=== PATIENT | female | born 1960 | race Caucasian/White ===

== ENCOUNTER → 2016-03-27 | Outpatient (REF) | payer OTHER ==
[~2016-03-27] MED LIST: ACID75TA12 PO; AMOX875T2 PO; DOCQ100C PO; GAS-80CH PO; OXYC1TAB23 PO; VITA1CHW8 PO
[2016-03-27 11:53] LABS: ALBUMIN 3.9 GM/DL (3.2-5.2); ALBUMIN/GLOBULIN RATIO 1.05 (1.00-1.93); ALKALINE PHOSPHATASE 92 U/L (45-117); ALT/SGPT 27 U/L (12-78); ANION GAP 7 MEQ/L (8-16); AST/SGOT 15 U/L (15-37); BILIRUBIN,TOTAL 0.4 MG/DL (0.2-1.0); BLOOD UREA NITROGEN 20 MG/DL (7-18); CARBON DIOXIDE LEVEL 30 MEQ/L (21-32); CHLORIDE LEVEL 105 MEQ/L (98-107); CHOLESTEROL LEVEL 192 MG/DL (<200); CREATININE FOR GFR 0.86 MG/DL (0.55-1.02); GLOMERULAR FILTRATION RATE > 60.0 (>51); GLUCOSE, FASTING 132 MG/DL (70-105); POTASSIUM SERUM 4.4 MEQ/L (3.5-5.1); SODIUM LEVEL 142 MEQ/L (136-145); TOTAL PROTEIN 7.6 GM/DL (6.4-8.2); TRIGLYCERIDES LEVEL 273 MG/DL (<150)
== END ==
LOC: M SFHCCLAY 08:18
PROVIDERS: ATTEND Family Medicine
DX: E11.65 Type 2 diabetes mellitus with hyperglycemia (principal)

== ENCOUNTER → 2016-04-02 | Outpatient (CLI) | payer OTHER ==
--- NOTE | 2016-04-02 09:31 | REP ---
Right knee: Five views. History: Right knee pain. Findings: There is medial compartment joint space narrowing, sclerosis and osteophyte formation consistent with osteoarthritis. There is minimal lateral compartment spurring. Patellofemoral spurring is seen mild in degree. There is no evidence of joint effusion. No erosive change is seen. Impression: Three compartment osteoarthritis, most pronounced in the medial tibiofemoral compartment.
== END ==
LOC: M CLY 08:40
PROVIDERS: ATTEND Family Medicine
DX: M17.11 Unilateral primary osteoarthritis, right knee (principal)

== ENCOUNTER 2018-11-22 10:42 | Inpatient (IN) | payer OTHER ==
[2018-11-22] VITALS (12 sets, daily range): BP systolic 110–136; BP diastolic 63–91
[~2018-11-22] VITALS: Ht 157.5 cm; Wt 86.9 kg
[~2018-11-22 10:42] MED LIST changes: -ACID75TA12 PO; +ACID75TA6 PO; -DOCQ100C PO; +DOCQ100C5 PO; +glipiZIDE (GLUCOTROL) 5 MG TAB PO SCH
[2018-11-22] MEDS ORDERED: CYCL10TA PO (10:52)
[2018-11-22] MEDS ORDERED: GLIP2.5T6 PO (10:52)
[2018-11-22] MEDS ORDERED: METF500T13 PO (10:52)
[2018-11-22] MEDS ORDERED: LISI10TA4 PO (10:52)
[2018-11-22] MEDS ORDERED: IPRATROPIUM 0.5MG/ALBUTEROL 2.5MG INH SOL UD 3ML (DUONEB)(J7620) NEB PRN (11:00)
[2018-11-22 11:34] LABS: BASO % 0.3 % (0.0-1.0); EOS # 0.3 10^3/uL (0.0-0.5); EOS % 2.6 % (0.0-3.0); HEMATOCRIT 42.4 % (36.0-47.0); HEMOGLOBIN 13.7 g/dl (12.0-15.5); LYMPH # 3.3 10^3/uL (1.5-5.0); LYMPH % 30.6 % (24.0-44.0); MEAN CORPUSCULAR HEMOGLOBIN 28.1 pg (27.0-33.0); MEAN CORPUSCULAR HGB CONC 32.3 g/dl (32.0-36.5); MEAN CORPUSCULAR VOLUME 87.1 fl (80.0-96.0); MONO # 0.9 10^3/uL (0.0-0.8); MONO % 7.9 % (0.0-5.0); NEUTROPHILS # 6.3 10^3/uL (1.5-8.5); NEUTROPHILS % 58.2 % (36.0-66.0); PLATELET COUNT, AUTOMATED 296 10^3/uL (150-450); RED BLOOD COUNT 4.87 10^6/uL (4.00-5.40); WHITE BLOOD COUNT 10.9 10^3/uL (4.0-10.0)
--- NOTE | 2018-11-22 11:35 | REP ---
CHEST, SINGLE VIEW: Single view of the chest is performed. There is a large left pleural effusion with adjacent left lung atelectasis/infiltrate. Right lung is clear. Heart size is not well evaluated. There is calcification of the thoracic aorta. Electronically Signed by Freddie Day MD 11/23/2018 10:09 A
[2018-11-22 12:03] LABS: ALBUMIN 3.3 GM/DL (3.2-5.2); ALT/SGPT 30 U/L (12-78); BILIRUBIN,DIRECT 0.2 MG/DL (0.0-0.2); BILIRUBIN,TOTAL 0.3 MG/DL (0.2-1.0); BLOOD UREA NITROGEN 14 MG/DL (7-18); CALCIUM LEVEL 9.6 MG/DL (8.5-10.1); CARBON DIOXIDE LEVEL 27 MEQ/L (21-32); CHLORIDE LEVEL 102 MEQ/L (98-107); CK-MB VALUE MASS < 1.0 NG/ML (<3.6); CPK CREATINE PHOSPHOKINASE 36 U/L (26-192); CREATININE FOR GFR 0.79 MG/DL (0.55-1.30); GLOMERULAR FILTRATION RATE > 60.0 (>51); GLUCOSE, FASTING 216 MG/DL (70-100); MB/CK RELATIVE INDEX 2.78 (< OR =4); NT-PRO BNP 109 PG/ML (<125); POTASSIUM SERUM 3.9 MEQ/L (3.5-5.1); SODIUM LEVEL 138 MEQ/L (136-145); TOTAL PROTEIN 7.7 GM/DL (6.4-8.2); TROPONIN I < 0.02 NG/ML (< 0.10)
[2018-11-22 12:11] LABS: D-DIMER QUANT > 4000.0 ng/ml (<500)
[2018-11-22] MEDS ORDERED: ISOVUE-370 76% 100ML VIAL (Q9967) As Ordered ONE (12:26)
--- NOTE | 2018-11-22 12:34 | ECGEPIP ---
[facility] - ED Test Date: 2018-11-22 Pat Name: AMINTA PEARSON Department: Room: - Gender: Female Social Media Specialist: yvette : 1960 Requested By: Kinsey Larry Order Number: [id number] Reading MD: Elijah Wallace Measurements Intervals [place] Rate: 104 P: 55 AK: 143 QRS: 46 QRSD: 80 T: 40 QT: 314 QTc: 415 Interpretive Statements SINUS TACHYCARDIA NSTTW ABNORMALITIES NO PRIORS FOR COMPARISON Electronically Signed on 11-22-2018 12:34:32 EDT by Elijah Wallace
[2018-11-22] MEDS ORDERED: GLIP5TAB8 PO (12:53)
[2018-11-22] MEDS ORDERED: METF-791 PO (12:53)
--- NOTE | 2018-11-22 13:41 | REP ---
CT ANGIOGRAM CHEST: TECHNIQUE: Axial contrast enhanced images from the thoracic inlet to the upper abdomen using 100 mL Isovue 370 intravenous contrast material with multiplanar reformations. No comparison studies. There is no CT evidence of pulmonary embolism. There is no thoracic aortic aneurysm or dissection. I see no evidence of significant mediastinal, hilar, or chest wall lymphadenopathy. Heart is normal in size. There is mild left side pericardial thickening. There is a large left pleural effusion which appears to have an enhancing rind. Empyema is not excluded. There is an adjacent left lung atelectasis/infiltrate. The visualized liver demonstrates ill-defined nodules. Four are seen in the right lobe and two in the left lobe. The largest appears to be at the right dome measuring 2.6 cm in diameter. There appear to be gallstones in a collapsed gallbladder without definite gallbladder wall edema or inflammation. The spleen is unremarkable. The adrenals demonstrate no discrete nodule. Visualized pancreas and kidneys are unremarkable. There are a few subcentimeter enhancing peritoneal nodules anteriorly in the visualized upper abdomen. Enlarged portal lymph nodes are seen. The largest is in the posterior portal region measuring 2.2 x 1.3 cm. Another anterior to the pancreatic head measures 1.7 cm. There are degenerative changes of the spine without definite bone lesion. IMPRESSION: Large left pleural effusion with enhancing rind, this could represent an empyema. There is adjacent atelectasis/infiltrate in the left lung. Several liver nodules I suspect represent metastatic lesions. There is portal adenopathy. There are a few subcentimeter peritoneal nodules in the upper abdomen anteriorly, anterior to the left lobe of the liver. These are also likely metastatic. Electronically Signed by Freddie Day MD 11/23/2018 10:18 A
[2018-11-22] MEDS ORDERED: CYCLOBENZAPRINE 10 MG TAB PO PRN (14:45)
[2018-11-22] MEDS ORDERED: LEVALBUTEROL 1.25 MG/0.5 ML CONCENTRATE NEB NEB PRN (15:00)
[2018-11-22] MEDS ORDERED: BISACODYL 10 MG SUPP PR PRN (15:00)
[2018-11-22] MEDS ORDERED: ONDANSETRON 4MG/2ML VIAL (J2405) IV PRN (15:00)
[2018-11-22] MEDS ORDERED: KCL 20MEQ IN D5/NS 1000ML 1,000 ML IV SCH (15:00)
[2018-11-22] MEDS ORDERED: PERCOCET 5MG/325MG TAB PO PRN (15:00)
[2018-11-22] MEDS ORDERED: ACETAMINOPHEN TAB 650MG DOSE (2X325MG) PO PRN (15:00)
[2018-11-22] MEDS ORDERED: GLUCOSE 4 GM CHEW TABLET PO PRN (15:15)
[2018-11-22] MEDS ORDERED: DEXTROSE 50% 50 ML SYRINGE IV PRN (15:15)
[2018-11-22] MEDS ORDERED: GLUCAGON FOR INJ 1 MG VIAL (J1610) SC PRN (15:15)
[2018-11-22] MEDS ORDERED: FLUMAZENIL 0.5 MG/5 ML VIAL As Ordered ONE (15:19)
[2018-11-22] MEDS ORDERED: MIDAZOLAM INJ 2 MG/2 ML VIAL (J2250) As Ordered ONE ×2 (15:19→15:20)
[2018-11-22] MEDS ORDERED: LIDOCAINE 1% MDV 20ML VIAL As Ordered ONE (15:20)
--- NOTE | 2018-11-22 15:56 | HPEPDOC ---
General Date of Admission Nov 22, 2018 at 14:34 Date of Service: Nov 22, 2018 Chief Complaint The patient is a 58-year-old female admitted with a reason for visit of Pleural Effusion. Source: Patient, Family Exam Limitations: Garbled speech Severity: Moderate, Severe History of Present Illness Pt is a 58 yo female with PMH of GERD, HTN, DM, and small bowel obstruction presented to [facility] ER due to 1 month of gradual worsening of dyspnea, orthopnea, and diffuse abdominal pain. She described the abdominal pain as diffuse dull and sharp abdominal pain that radiated to her neck and back, aggravating factor includes movement and milk products, and alleviating factor including aspirin. Pt reported that she has been taking 500mg Aspirin three times a day for the past 4 weeks; stating 10/10 abdominal pain improves after taking aspirin, and last took aspirin last night. She also has productive cough and left arm weakness. Pt had about 10lb weight loss which she attributed to decreased appetite and her glipizide use; reported she was started on glipizide about 4 weeks ago, but she stopped it 11/04/18. Pt also has nausea but denies vomiting. She uses marijuna occasionally but denies any past IV drug use. Denies any fever, chills, chest pain, chest tightness, palpitation, diarrhea, constipation, or blood in stool. Home Medications Scheduled Glipizide (Glipizide) 5 Mg Tablet, 5 MG PO BID, (Reported) Lisinopril (Lisinopril) 10 Mg Tablet, 10 MG PO DAILY, (Reported) Metformin HCl (Metformin HCl ER) 500 Mg Tab.er.24h, 250 MG PO BID, (Reported) Scheduled PRN Cyclobenzaprine HCl (Cyclobenzaprine HCl) 10 Mg Tablet, 10 MG PO TID PRN for MUSCLE SPASMS, (Reported) Allergies Coded Allergies: No Known Allergies (Unverified , 03/21/15) Past Medical History Medical History SBO HTN DM Gallstone Appendicitis GERD Surgical History C-[id number] 1984 Appendectomy 03/14/15 Family History Mother-HTN and uterine CA Brother-ETOH use disorder, unspecified cardiac disease Social History * Smoker: current smoker, cigarettes (30 years; used to be 1pk/day but for the past 6 months 6-8cig/day), other Alcohol: other (Denies current alcohol use; ETOH use years ago) Drugs: marijuana A-FIB/CHADSVASC A-FIB History Current/History of A-Fib/PAF?: No Review of Systems Constitutional: Reports: Weight Loss, Other (decreased appetite); Denies: Chills, Fever Pulmonary: Reports: Dyspnea, Cough Cardiovascular: Reports: Orthopnea; Denies: Chest Pain, Palpitations, Edema Gastrointestinal: Reports: Nausea, Abdominal Pain; Denies: Vomiting, Diarrhea, Constipation, Hematochezia Musculoskeletal: Reports: Arm Pain (left arm weakness) Neurological: Reports: Other Symptoms (denies tingling); Denies: Weakness, Numbness Physical Examination General Exam: Positive: Alert, No Acute Distress Eye Exam: Negative: Sclera icteric ENT Exam: Positive: Atraumatic, Other ENT (poor dentation) Chest Exam: Positive: Normal air movement, Diminished (Left lung worse in lower lobe region; decreased fremitus and dull percussion in LLL region) Heart Exam: Positive: Rate Normal, Regular Rhythm, Normal S1, Normal S2; Negative: Murmurs Abdomen Exam: Positive: Normal bowel sounds, Soft, Tenderness (diffuse) Extremity Exam: Positive: Normal pulses; Negative: Edema, Tenderness, Swelling Skin Exam: Positive: Nl turgor and temperature Neuro Exam: Positive: Normal Speech Psych Exam: Positive: Mood NL, Memory Intact, Oriented x 3 Vital Signs Vital Signs Date Time Temp Pulse Resp B/P (MAP) Pulse Ox O2 Delivery O2 Flow Rate FiO2 11/22/18 14:30 96 129/83 (98) 97 11/22/18 10:55 97.7 20 Room Air Laboratory Data Labs 24H Laboratory Tests 2 11/22/18 11:12: Immature Granulocyte % (Auto) 0.4, White Blood Count 10.9H, Red Blood Count 4.87, Hemoglobin 13.7, Hematocrit 42.4, Mean Corpuscular Volume 87.1, Mean Corpuscular Hemoglobin 28.1, Mean Corpuscular Hemoglobin Concent 32.3, Red Cell Distribution Width 14.6H, Platelet Count 296, Neutrophils (%) (Auto) 58.2, Lymphocytes (%) (Auto) 30.6, Monocytes (%) (Auto) 7.9H, Eosinophils (%) (Auto) 2.6, Basophils (%) (Auto) 0.3, Neutrophils # (Auto) 6.3, Lymphocytes # (Auto) 3.3, Monocytes # (Auto) 0.9H, Eosinophils # (Auto) 0.3, Basophils # (Auto) 0.0, Nucleated Red Blood Cells % (auto) 0.0, D-Dimer, Quantitative > 4000.0H, Anion Gap 9, Glomerular Filtration Rate > 60.0, Calcium Level 9.6, Aspartate Amino Tra nsf (AST/SGOT) 17, Alanine Aminotransferase (ALT/SGPT) 30, Alkaline Phosphatase 141H, Total Bilirubin 0.3, Direct Bilirubin 0.2, Total Creatine Kinase 36, Creatine Kinase MB < 1.0, Creatine Kinase MB Relative Index 2.78, Troponin I < 0.02, KT-Wwz-C-Type Natriuretic Peptide 109, Total Protein 7.7, Albumin 3.3, Albumin/Globulin Ratio 0.75L, Thyroid Stimulating Hormone (TSH) 1.700 CBC/BMP Laboratory Tests 11/22/18 11:12 Red Blood Count 4.87, Mean Corpuscular Volume 87.1, Mean Corpuscular Hemoglobin 28.1, Mean Corpuscular Hemoglobin Concent 32.3, Red Cell Distribution Width 14.6 H, Neutrophils (%) (Auto) 58.2, Lymphocytes (%) (Auto) 30.6, Monocytes (%) (Auto) 7.9 H, Eosinophils (%) (Auto) 2.6, Basophils (%) (Auto) 0.3, Neutrophils # (Auto) 6.3, Lymphocytes # (Auto) 3.3, Monocytes # (Auto) 0.9 H, Eosinophils # (Auto) 0.3, Basophils # (Auto) 0.0 Assessment/Plan 1. Dyspnea due to left pleural effusion likely 2/2 malignancy -Large left pleural effusion with enhancing ring noted on CT chest with adjacent atelectasis/infiltrate in the left lung. -Several liver nodules peritoneal nodules in the upper abdomen anteriorly suspected to be metastatic lesions as well as portal adenopathy -Dr. Torres consulted by ER, and we appreciate Dr. Torres's assist and input in patient care. Plan for chest tube placement with peritoneal fluid analysis. -Pt sat well on RA. Incentive spirometry; xopenex 2. Abdominal pain with weight loss likely 2/2 GI malignancy -Several liver nodules peritoneal nodules in the upper abdomen anteriorly suspected to be metastatic lesions as well as portal adenopathy -Pending chest tube fluid analysis. Consider Abd CT -Pain meds with Zofran PRN -Pt denies any past IV use and denies hx of hepatitis; no jaundice noted. AFP, CEA, and CA 19-9 ordered. F/u CMP 3. Diabetes mellitus, non-insulin dependent -pt was on glipizide and metformin outpt but reported stopping glipizide on her own due to the weight loss -Hold home DM meds. Pt will be on insulin SS and glucose checks 4. HTN -Cont home med lisinopril. Vital signs as scheduled 5. GERD -On protonix 40mg daily DVT prophylaxis: SCD, TEDS, and heparin SQ Code status: Patient is full code I performed a history and physical examination of the patient and discussed their management with the above documenter. I reviewed the note and agree with the documented findings and plan of care. Plan / VTE VTE Prophylaxis Ordered?: Yes AMITA PAINTER DO Nov 22, 2018 15:56 BEST CALLEJAS MD Nov 23, 2018 12:07
[2018-11-22] MEDS ORDERED: KETOROLAC 30 MG/ML VIAL (J1885) IV SCH (16:00)
[2018-11-22 16:34] LABS: LDH LACTATE DEHYDROGENASE 186 U/L (84-246)
[2018-11-22 16:36] LABS: PROTHROMBIN TIME 13.9 SECONDS (11.8-14.0)
[2018-11-22] MEDS ORDERED: KETOROLAC 30 MG/ML VIAL (J1885) IV ONE (17:00)
[2018-11-22 17:35] LABS: ABG PARTIAL PRESSURE CO2 36.4 mmHg (35.0-45.0); ABG PARTIAL PRESSURE O2 91.4 mmHg (75.0-100.0); ABG STANDARD HCO3 23.6 MEQ/L (22.0-26.0); ABG TOTAL CO2 24.1 MEQ/L (22.0-29.0); ABG pH (ARTERIAL) 7.419 UNITS (7.350-7.450)
--- NOTE | 2018-11-22 17:54 | REP ---
CHEST, SINGLE VIEW: Single view of the chest is performed and compared to prior exam of the same day. There has been placement of a left chest tube. It overlies the left lower hemithorax. There is a small pneumothorax at that level. There is underlying pleural and parenchymal density in the left base. Right lung remains clear. Electronically Signed by Freddie Day MD 11/24/2018 04:31 P
--- NOTE | 2018-11-22 18:10 | RO ---
DATE OF PROCEDURE: 11/22/2018 PREPROCEDURE DIAGNOSIS: Left side pleural effusion. POSTPROCEDURE DIAGNOSIS: Left side pleural effusion. SURGEON: Dr. Torres. PROCEDURE: Insertion of left lateral chest tube. FINDINGS: The chest tube eluded approximately 750 mL of hemorrhagic fluid. Fluid was sent for hematology, cytology, bacteriologies and chemistries. PROCEDURE: Under satisfactory moderate sedation with 1 mg of Versed patient was prepped and draped in the usual sterile fashion. Incision was made over the proximal 7th rib and the chest tube was placed in the approximate 6th intercostal space after making an incision and creating a tunnel. Chest tube was secured to the chest wall with #2 Tevdek suture. It was connected to a pleur-evac. Patient tolerated the procedure well and a chest x-ray is pending. It should be noted that the incision site along with the subcutaneous tissue and muscle and pleural were infiltrated with 1% lidocaine prior to insertion of the tube.
[2018-11-22] MEDS: HumaLOG INSULIN (NovoLOG) PER UNIT SC SCH ×2 (18:18→21:56)
--- NOTE | 2018-11-22 18:55 | CR ---
DATE OF CONSULTATION: 11/22/2018 The patient is seen at the request of the emergency room, Dr. Jones and the hospitalist service for a left pleural effusion and shortness of breath. HISTORY OF PRESENT ILLNESS: The patient is a 58-year-old white female whose story starts about a month ago. She attributes everything to seeing her doctor where a diagnosis of diabetes and hypertension was made and she was placed on medications. Shortly thereafter she started to experience chest discomfort and chest pain in both her side and her anterior precordium. She cannot really describe the pain well, but it is somewhere between an ache and a sharp pain. The pain is more intense when she takes a deep breath in, particularly in the anterior precordium. She has had no fever, chills or sweats, but she has lost about 8 pounds of weight in the last few months and her clothes do not fit as well as they did. She has a cough with yellow to green sputum production with sometimes brown flecks. There is no overt red hemoptysis. The cough has been going on again for about a month. She has become progressively shortness of breath such that even walking around her house she gets shortness of breath. Going from her bed to her bathroom additionally makes her shortness of breath. She has no dysphagia. She dates all of her symptomatology back to when she stared her medications for diabetes and hypertension. She is utterly convinced that those are the cause of her symptomatology. PAST MEDICAL HISTORY: The above diabetes and hypertension. Also gallbladder disease. PAST SURGICAL HISTORY: C sections and appendectomy. She has never had a hysterectomy or an oophorectomy. MEDICATIONS AT HOME: - cyclobenzaprine 10 mg by mouth three times a day as needed muscle spasm - glipizide 5 mg twice a day - lisinopril 10 mg every day - metformin 250 mg by mouth twice a day Additionally she takes 1500 mg of aspirin a day for the last month for pain control. SOCIAL HISTORY: On average she smokes about 1/2 pack per day of [place]'s. Earlier years she might have smoke up to a pack a day for about 30 past years. She drinks White Russians, sometimes 6 a day but nothing in the last 6 months. She smoked marijuana last night for pain control, but there is no other illicit drug use. TRAVEL HISTORY: She has been to [place] but not to the [facility] and there has been no foreign travel. 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 No exposure to tuberculosis. FAMILY HISTORY: Mother of uterine carcinoma REVIEW OF SYSTEMS: Constitutional: See HPI with the above weight loss, without fever, chills or sweats. Eyes: Without diplopia, wears glasses, amaurosis fugax or prior jaundice. Nose: Without epistaxis. Mouth: Has her own teeth. Pulmonary: See HPI. Cardiac: Has palpitations when she takes her garbage out. She considers that walking a long distance. Without prior myocardial infarctions. Without intermittent claudication or peripheral edema. Gastrointestinal (GI): Has over the past month she has had bouts of nausea, but no vomiting. No diarrhea. Occasional constipation. No melena, no hematochezia or hematemasis. Does have abdominal pain on the left side particularly after eating. She attributes her weight loss to pain that she experiences after eating over the last month. Genitourinary (): Without dysuria, hematuria, or prior renal stones. Does note that her urine has been much more yellow over the past month. Neurologic: Without paresthesias, paralysis or prior seizures. Hematologic: Without prolonged bleeding times. Psychiatric: Without pathologic depression, psychoses or anxieties, but has had depression in the past, untreated. PHYSICAL EXAMINATION: Well developed, well nourished, obese, white female in no acute distress. Vital Signs: Temperature 97.7, heart rate 98 in a sinus rhythm, respiratory rate 20 without the use of accessory muscles, who is 96% saturated on room air and whose blood pressure is 133/77. Head: Normocephalic. Eyes: Pupils equal and reactive to light. Extraocular movements intact. Sclerae anicteric. Nose: Without deformity. Mouth: She has her bottom teeth, edentulous on the top, with mucous membranes that are pink and moist. Lips and commissures are without lesions. There is no thrush. Neck: Supple. There is no jugular venous distention. No subcutaneous emphysema. Trachea is midline. There is no thyromegaly or lymphadenopathy. She has 2+ carotid upstrokes, without carotid bruits. Lungs: Show markedly decreased breath sounds in the left lower hemithorax with E to A egophony. Percussion note is dull in the left lower hemithorax. Right hemithorax shows normal vesicular sounds, without wheezes, rhonchi or rales. Percussion note is full to the diaphragm on the right. Cardiac Exam: Without murmurs, clicks, gallops, or rubs. I cannot feel her PMI. S1 and S2 are normal. Abdomen: Tender to deep palpation in the right and left upper quadrants along with the epigastrium. There is guarding or rebound tenderness. Bowel sounds are positive. There is no hepatomegaly that I can feel through her obesity and there is no costovertebral angle (CVA) tenderness. Extremities: Show no pretibial edema. No calf tenderness. No differential swelling of the upper extremities. Skin: Warm, dry and perfused. Without cyanosis or mottling, including that of the nail beds and knees. Neurologic: Shows II-XII intact along with gross motor and gross sensation intact. Gait is not tested. Psychiatric shows her to be awake, alert, and oriented times three with appropriate mood and affect and conversational. Pulses show 1+ dorsalis pedis, 1+ posterior tibial pulses and 2+ carotid pulses without bruits. INVESTIGATIONS: Her white count is 10.9 with hemoglobin and hematocrit of 13.7 and 42.4 with a platelet count of 296. Her differential shows 58% neutrophils, 30% lymphocytes, 70% monocytes. There are no immature forms, no toxic granulations. Her electrolytes are normal with a BUN and creatinine of 14 and 0.79, a glucose of 260 and a calcium of 9.6. Corresponding albumin is 3.3. Total bilirubin is 0.3 with normal LFTs with a marginally high LDH of 186. Troponins less than 0.02. Her TSH is 1.7 within normal limits for this institution. PT/INR are 13.9 and 1.1 respectively. D-dimer is greater than 4000. Her chest x-ray done in the emergency room portably shows a left-sided opacity. She looks to have a curvilinear meniscus with underlying compression. CT angio of her chest confirms a pleural effusion on the left side. She has a crescent of lung compression on the lower lobe. I can see air bronchograms so I do not think there is an endobronchial obstructive lesion within the compressed areas. There is no appreciable mediastinal lymphadenopathy paratracheally. She may have a few smaller nodes in the AP window and along the border of the aortic arch. She has multiple lucencies in the liver which are a lot more dense than cystic fluid ought to be. She has abdominal lymphadenopathy along the aorta along with what looks to be a peritoneal mass within the omentum which only measures about 8 mm. It looks as though she has a calcification or stone within the common duct. Kidneys are well opacified. There is no pulmonary embolism. Right heart looks to be normal size. IMPRESSION: 1. A left-sided pleural effusion. 2. Multiple lucent areas of the liver consistent with metastatic disease. 3. Multiple peritoneal masses consistent with metastatic disease. 4. Family history of ovarian cancer. 5. Tobacco abuse. 6. Prior alcohol abuse. 7. Diabetes. 8. Hypertension. PLAN AND DISCUSSION: My suspicion is that this pleural effusion is going to be malignant and I would conjecture hemorrhagic. I suspect the primary is going to be below the diaphragm either uterine or ovarian as the lung usually does not go to the peritoneum. Certainly lung cancer is in the differential and a definite possibility however. I do not think this represents an empyema or underlying pneumonia giving rise to an empyema. I am concerned about her weight loss. We will send the fluid off for all the requisite studies. I will place a chest tube in her this afternoon. ROBERT
[2018-11-22 18:59] LABS: PH BODY FLUID 7.482 UNITS (NOT ESTABLISHED); SOURCE, BODY FLUID pH PLEURAL
[2018-11-22 19:07] LABS: APPEARANCE, BODY FLUID TURBID (CLEAR); PLEURAL FL COLOR RED (COLORLESS); SOURCE, BODY FLUID PLEURAL
[2018-11-22 19:25] LABS: AMYLASE, BODY FLUID 44 U/L (NOT ESTABLISHED); CHOLESTEROL, BODY FLUID 88 MG/DL (NOT ESTABLISHED); LDH, BODY FLUID 718 U/L (NOT ESTABLISHED); SOURCE, BODY FLUID ALBUMIN PLEURAL; SOURCE, BODY FLUID AMYLASE PLEURAL; SOURCE, BODY FLUID CHOL PLEURAL; SOURCE, BODY FLUID GLUCOSE PLEURAL; SOURCE, BODY FLUID LDH PLEURAL; SOURCE, BODY FLUID TOT PROTEIN PLEURAL; SOURCE, BODY FLUID TRIG PLEURAL; TOTAL PROTEIN, BODY FLUID 5.4 G/DL (NOT ESTABLISHED); TRIGLYCERIDE, BODY FLUID 64 MG/DL (NOT ESTABLISHED)
[2018-11-22] MEDS: LEVALBUTEROL 1.25 MG/0.5 ML CONCENTRATE NEB NEB SCH (20:12)
[2018-11-22] MEDS ORDERED: metFORMIN XR 500MG TAB *GLUCOPHAGE XR PO SCH (21:00)
[2018-11-22] MEDS: NORCO, ANEXSIA 5/325MG TABLET (HYDROcodone/ACETAMINOPHEN) PO PRN (21:40)
[2018-11-22] MEDS: DOCUSATE SODIUM 100 MG CAP PO SCH (21:40)
[2018-11-22] MEDS: HEPARIN SOD (PORCINE) 5000 UNITS/ML VIAL SC SCH (21:41)
[2018-11-22] MEDS: KETOROLAC 30 MG/ML VIAL (J1885) IV SCH (22:02)
[2018-11-23] MEDS ORDERED: GASTROGRAFIN SOLUTION 30ML PO SCH (02:00)
[2018-11-23] MEDS: NORCO, ANEXSIA 5/325MG TABLET (HYDROcodone/ACETAMINOPHEN) PO PRN ×2 (02:16→14:19)
[2018-11-23] MEDS: LEVALBUTEROL 1.25 MG/0.5 ML CONCENTRATE NEB NEB SCH ×4 (02:33→20:52)
[2018-11-23 04:00] VITALS: BP 112/65
[2018-11-23] MEDS: KETOROLAC 30 MG/ML VIAL (J1885) IV SCH ×3 (04:24→18:01)
[2018-11-23 05:20] LABS: BASO % 0.4 % (0.0-1.0); EOS # 0.4 10^3/uL (0.0-0.5); EOS % 3.4 % (0.0-3.0); HEMATOCRIT 36.7 % (36.0-47.0); HEMOGLOBIN 11.8 g/dl (12.0-15.5); LYMPH # 3.9 10^3/uL (1.5-5.0); LYMPH % 35.6 % (24.0-44.0); MEAN CORPUSCULAR HEMOGLOBIN 27.3 pg (27.0-33.0); MEAN CORPUSCULAR HGB CONC 32.2 g/dl (32.0-36.5); MONO # 0.9 10^3/uL (0.0-0.8); MONO % 8.6 % (0.0-5.0); NEUTROPHILS # 5.6 10^3/uL (1.5-8.5); NEUTROPHILS % 51.5 % (36.0-66.0); PLATELET COUNT, AUTOMATED 253 10^3/uL (150-450); RED BLOOD COUNT 4.32 10^6/uL (4.00-5.40); WHITE BLOOD COUNT 10.9 10^3/uL (4.0-10.0)
[2018-11-23 05:37] LABS: INR 1.18; PROTHROMBIN TIME 14.7 SECONDS (11.8-14.0)
[2018-11-23 05:38] LABS: PARTIAL THROMBOPLASTIN TIME 30.3 SECONDS (25.0-38.4)
[2018-11-23 05:58] LABS: ALBUMIN 2.7 GM/DL (3.2-5.2); ALT/SGPT 28 U/L (12-78); BILIRUBIN,TOTAL 0.5 MG/DL (0.2-1.0); BLOOD UREA NITROGEN 14 MG/DL (7-18); CALCIUM LEVEL 8.8 MG/DL (8.5-10.1); CARBON DIOXIDE LEVEL 23 MEQ/L (21-32); CHLORIDE LEVEL 103 MEQ/L (98-107); CREATININE FOR GFR 0.85 MG/DL (0.55-1.30); GLOMERULAR FILTRATION RATE > 60.0 (>51); GLUCOSE, FASTING 172 MG/DL (70-100); POTASSIUM SERUM 3.6 MEQ/L (3.5-5.1); SODIUM LEVEL 136 MEQ/L (136-145); TOTAL PROTEIN 6.8 GM/DL (6.4-8.2)
[2018-11-23 06:13] LABS: ABG BASE EXCESS -4.3 (-2.0-2.0); ABG HCO3 19.8 MEQ/L (22.0-26.0); ABG O2 SATURATION 95.1 % (95.0-99.0); ABG PARTIAL PRESSURE CO2 33.3 mmHg (35.0-45.0); ABG PARTIAL PRESSURE O2 78.2 mmHg (75.0-100.0); ABG STANDARD HCO3 20.8 MEQ/L (22.0-26.0); ABG TOTAL CO2 20.8 MEQ/L (22.0-29.0); ABG pH (ARTERIAL) 7.391 UNITS (7.350-7.450)
[2018-11-23] MEDS: GASTROGRAFIN SOLUTION 30ML PO SCH (07:28)
[2018-11-23 08:00] VITALS: BP 107/61
[2018-11-23] MEDS: HumaLOG INSULIN (NovoLOG) PER UNIT SC SCH ×4 (08:00→21:21)
[2018-11-23] MEDS ORDERED: MIDAZOLAM INJ 2 MG/2 ML VIAL (J2250) IV ONE ×3 (08:30→08:45)
[2018-11-23] MEDS ORDERED: LIDOCAINE 1% MDV 20ML VIAL SC ONE ×2 (08:30)
[2018-11-23] MEDS ORDERED: FLUBLOK(EGG FREE)(QUAD)INFLUENZA VACC 0.5ML SYRINGE (90682)18YRS&OLDER IM ONE (09:00)
--- NOTE | 2018-11-23 09:23 | IPN ---
DATE: 11/22/2018 Ms. Harrington has had an uneventful night. Her pain is being well controlled at the chest tube insertion site. She is breathing better today. On physical examination her abdominal tenderness is completely resolved. Her vital signs show a maximum temperature (t-max) of 97.7 with a heart rate that ranges between 98 and 102 in a sinus rhythm with a respiratory rate of 20 to 28 without the use of accessory muscles, who is 99% saturated on 4 liters nasal cannula. Blood pressure is ranging between 115/67 to 135/91. Her intake and output over the past 24 hours has been recorded as 638 in and 865 out for a negativity of 285 mL. She put out 540 mL from the chest tube after her initial drainge. She has put out 85 mL in the last 8 hours. There is no air leak. PHYSICAL EXAMINATION: LUNGS: Her lungs show equal breath sounds now on either side with some rales and wheezing in the left lower hemithorax. Percussion is full to the diaphragm. Right lung shows normal vesicular sounds. CARDIAC EXAM: Without murmurs, clicks, gallops or rubs. I cannot feel his point of maximum impulse (PMI). S1, S2 are normal. ABDOMEN: Soft, nontender. Bowel sounds are positive. There is no hepatomegaly. No costovertebral angle tenderness. As noted above there is a change from yesterday's physical examination. EXTREMITIES: Show no pretibial edema. No calf tenderness. No differential swelling of the upper extremities. SKIN: Warm, dry and perfused without cyanosis or mottling, including that of the nail beds and knees. NECK: Supple. There is no jugular venous distention. No subcutaneous emphysema. Trachea is midline. MOUTH: Shows her mucous membranes to be pink and moist. Lips and commissures without lesions. There is no thrush. EYES: Show his pupils to be equal and reactive. Extraocular motion intact. Sclerae anicteric. NEUROLOGIC: Shows II through XII intact with gross motor and gross sensation intact. Gait is not tested. PSYCHIATRIC: Shows her to be awake and alert, oriented times three with appropriate mood and affect and conversational. Her white count today is 10.9 with a hemoglobin and hematocrit of 11.8 and 36.7, down from 13.7 and 42.4 yesterday. This is probably secondary to hemodilution. Platelet count is 253 and stable. Differential shows 51% neutrophils, 35% lymphocytes, and 8% monocytes. There are no immature forms. No toxic granulations. Electrolytes are normal with a BUN and creatinine of 14 and 0.85. Glucose is 172 and calcium 8.8. Alkaline phosphatase is still marginally elevated. Albumin is 2.7. Her PT/INR today are 14.7 and 1.18 respectively. PTT is 30 seconds. Her pleural fluid has been determined with a pH of 7.48 with a glucose of 92 and an LDH of 718 with a serum LDH of 141. White count is 3639 of which 90% are lymphocytes were mononuclear and 9% are PMNs. Her chest x-ray today shows her lung fully expanded to the chest wall. This is in contrast to yesterday's chest x-ray just after the chest tube where the lung had still not expanded to the chest wall. She remains on -20 cm suction. Bacteriology is not reported back. No gram stain has been done yet. Pathology is still pending. IMPRESSION: 1. Left sided lymphocystic pleural effusion. 2. Multiple lucencies in the liver consistent with metastatic disease. 3. Multiple peritoneal masses consistent with metastatic disease. 4. Family history of uterine cancer. 5. Tobacco abuse. 6. Prior tobacco abuse. 7. Diabetes. 8. Hypertension. PLAN AND DISCUSSION: She has put out a considerable amount out the chest tube, I will leave it in today. We will await pathology. It does look suspicious that this is going to indeed be a malignant effusion. A CT of her abdomen is going to be undertaken today and again conjecturing that the primary tumor is going to originate under the diaphragm.
[2018-11-23] MEDS: LISINOPRIL 10 MG TAB PO SCH (10:00)
[2018-11-23] MEDS: MOM 30ML SUSPENSION UDC PO SCH (10:00)
[2018-11-23 10:08] LABS: AMYLASE 62 U/L (25-115)
[2018-11-23] MEDS: PANTOPRAZOLE 40MG TAB (PROTONIX) PO SCH (10:08)
[2018-11-23] MEDS: HEPARIN SOD (PORCINE) 5000 UNITS/ML VIAL SC SCH ×2 (10:08→21:21)
[2018-11-23] MEDS: DOCUSATE SODIUM 100 MG CAP PO SCH ×2 (10:08→21:20)
--- NOTE | 2018-11-23 10:08 | IPNPDOC ---
Subjective Date Seen The patient was seen on 11/23/18. Subjective Chief Complaint/HPI Pt is a 58 yo female with PMH of GERD, HTN, DM, and small bowel obstruction presented to [facility] ER due to 1 month of gradual worsening of dyspnea, orthopnea, and diffuse abdominal pain. She described the abdominal pain as diffuse dull and sharp abdominal pain that radiated to her neck and back, aggravating factor includes movement and milk products, and alleviating factor including aspirin. Pt reported that she has been taking 500mg Aspirin three times a day for the past 4 weeks; stating 10/10 abdominal pain improves after taking aspirin, and last took aspirin last night. She also has productive cough and left arm weakness. Pt had about 10lb weight loss which she attributed to decreased appetite and her glipizide use; reported she was started on glipizide about 4 weeks ago, but she stopped it 11/04/18. Pt also has nausea but denies vomiting. She uses marijuna occasionally but denies any past IV drug use. Denies any fever, chills, chest pain, chest tightness, palpitation, diarrhea, constipation, or blood in stool. Events since last encounter Pt was examined at bedside. She reported improving dyspnea and coughing after the chest tube insertion. She said she still has some orthopnea but denies any fever, chills, nausea, vomiting; abdominal pain resolved General: Denies: Chills Constitutional: Denies: Chills, Fever Pulmonary: Reports: Dyspnea, Cough Cardiovascular: Reports: Orthopnea; Denies: Chest Pain, Palpitations Gastrointestinal: Denies: Nausea, Vomiting, Abdominal Pain Objective Physical Examination General Exam: Positive: Alert, No Acute Distress Eye Exam: Negative: Sclera icteric ENT Exam: Positive: Atraumatic, Other ENT (poor dentation) Chest Exam: Positive: Normal air movement, Diminished (Mild in left ), Other (B/l dullness to percussion in lower lung region. Chest tube vac noted with red pleural fluid noted in tube); Negative: Rales, Rhonchi, Wheezing Heart Exam: Positive: Rate Normal, Regular Rhythm, Normal S1, Normal S2; Negative: Murmurs Abdomen Exam: Positive: Normal bowel sounds, Soft, Tenderness (in LUQ region) Extremity Exam: Positive: Normal pulses; Negative: Edema, Tenderness, Swelling Skin Exam: Positive: Nl turgor and temperature Neuro Exam: Positive: Normal Speech Psych Exam: Positive: Mood NL, Memory Intact, Oriented x 3 Assessment /Plan Assessment 1. Dyspnea due to left pleural effusion likely 2/2 malignancy, improving s/p chest tube insertion -Large left pleural effusion with enhancing ring noted on CT chest with adjacent atelectasis/infiltrate in the left lung. -Several liver nodules peritoneal nodules in the upper abdomen anteriorly suspected to be metastatic lesions as well as portal adenopathy -Dr. Torres consulted by ER, and we appreciate Dr. Torres's assist and input in patient care. S/p chest tube placement -Pt sat well on RA. Incentive spirometry; xopenex 2. Left sided exudative pleural effusion s/p chest tube insertion likely 2/2 malignancy vs less likely parapneumonic - LDH ratio 3.86; red turbid appearance - cytology pending 2. 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 -AFP wnl, CEA elevated, and CA 19-9 pending. Occult Guiac blood ordered 3. Diabetes mellitus, non-insulin dependent -pt was on glipizide and metformin outpt but reported stopping glipizide on her own due to the weight loss -Hold home DM meds. Pt will be on insulin SS and glucose checks 4. HTN -Cont home med lisinopril. Vital signs as scheduled 5. GERD -On protonix 40mg daily DVT prophylaxis: SCD, TEDS, and heparin SQ Code status: Patient is full code I saw and evaluated the patient. I agree with the findings and plan of care as documented in the above note Plan/VTE VTE Prophylaxis Ordered?: Yes VS, I&O, 24H, Fishbone Vital Signs/I&O Vital Signs Date Time Temp Pulse Resp B/P (MAP) Pulse Ox O2 Delivery O2 Flow Rate FiO2 11/23/18 08:00 97.0 88 18 107/61 (76) 97 11/22/18 17:47 4.0 11/22/18 10:55 Room Air I&O- Last 24 Hours up to 6 AM 11/23/18 06:00 Intake Total 830 ml Output Total 1050 ml Balance -220 ml Laboratory Data 24H LABS Laboratory Tests 2 11/22/18 11:12: Immature Granulocyte % (Auto) 0.4, White Blood Count 10.9H, Red Blood Count 4.87, Hemoglobin 13.7, Hematocrit 42.4, Mean Corpuscular Volume 87.1, Mean Corpuscular Hemoglobin 28.1, Mean Corpuscular Hemoglobin Concent 32.3, Red Cell Distribution Width 14.6H, Platelet Count 296, Neutrophils (%) (Auto) 58.2, Lymphocytes (%) (Auto) 30.6, Monocytes (%) (Auto) 7.9H, Eosinophils (%) (Auto) 2.6, Basophils (%) (Auto) 0.3, Neutrophils # (Auto) 6.3, Lymphocytes # (Auto) 3.3, Monocytes # (Auto) 0.9H, Eosinophils # (Auto) 0.3, Basophils # (Auto) 0.0, Nucleated Red Blood Cells % (auto) 0.0, Prothrombin Time 13.9, Prothromb Time International Ratio 1.10, D-Dimer, Quantitative > 4000.0H, Anion Gap 9, Glomerular Filtration Rate > 60.0, Calcium Level 9.6, Aspartate Amino Transf (AST/SGOT) 17, Alanine Aminotransferase (ALT/SGPT) 30, Lactate Dehydrogenase 186, Alkaline Phosphatase 141H, Total Bilirubin 0.3, Direct Bilirubin 0.2, Total Creatine Kinase 36, Creatine Kinase MB < 1.0, Creatine Kinase MB Relative Index 2.78, Troponin I < 0.02, DG-Hjx-H-Type Natriuretic Peptide 109, Total Protein 7.7, Albumin 3.3, Albumin/Globulin Ratio 0.75L, Tumor Marker Alpha Fetoprotein 3.1, Carcinoembryonic Antigen 590.3H, Thyroid Stimulating Hormone (TSH) 1.700 11/22/18 17:20: Blood Gas Bicarbonate Standard 23.6, Arterial Blood pH 7.419, Arterial Blood P artial Pressure CO2 36.4, Arterial Blood Partial Pressure O2 91.4, Arterial Blood Total CO2 24.1, Arterial Blood HCO3 23.0, Arterial Blood Base Excess -1.0, Arterial Blood Oxygen Saturation 97.0 11/22/18 17:33: Bedside Glucose (Misc Panel) 196H 11/22/18 17:58: Body Fluid pH 7.482, Body Fluid pH Source PLEURAL, Body Fluid WBC (Auto) 3639H, Body Fluid RBC (Auto) 188, Body Fluid Mononuclear Cells % Auto 90.6H, Fluid Polymorphonuclear Cell % Auto 9.4H, Body Fluid Glucose Source PLEURAL, Body Fluid Glucose 92, Body Fluid Protein Source PLEURAL, Body Fluid Total Protein 5.4, Body Fluid Albumin Source PLEURAL, Body Fluid Albumin 2.5, Body Fluid LDH Source PLEURAL, Body Fluid Lactate Dehydrogenase 718, Body Fluid Amylase Source PLEURAL, Body Fluid Amylase 44, Body Fluid Cholesterol 88, Body Fluid Cholesterol Source PLEURAL, Body Fluid Triglyceride Source PLEURAL, Body Fluid Triglycerides 64, Pleural Fluid Source PLEURAL, Pleural Fluid Color RED, Pleural Fluid Appearance TURBID 11/22/18 21:44: Bedside Glucose (Misc Panel) 290H 11/23/18 05:04: Immature Granulocyte % (Auto) 0.5, White Blood Count 10.9H, Red Blood Count 4.32, Hemoglobin 11.8L, Hematocrit 36.7, Mean Corpuscular Volume 85.0, Mean Corpuscular Hemoglobin 27.3, Mean Corpuscular Hemoglobin Concent 32.2, Red Cell Distribution Width 14.6H, Platelet Count 253, Neutrophils (%) (Auto) 51.5, Lymphocytes (%) (Auto) 35.6, Monocytes (%) (Auto) 8.6H, Eosinophils (%) (Auto) 3.4H, Basophils (%) (Auto) 0.4, Neutrophils # (Auto) 5.6, Lymphocytes # (Auto) 3.9, Monocytes # (Auto) 0.9H, Eosinophils # (Auto) 0.4, Basophils # (Auto) 0.0, Nucleated Red Blood Cells % (auto) 0.0, Prothrombin Time 14.7H, Prothromb Time International Ratio 1.18, Activated Partial Thromboplast Time 30.3, Anion Gap 10, Glomerular Filtration Rate > 60.0, Blood Urea Nitrogen 14, Creatinine 0.85, Sodium Level 136, Potassium Level 3.6, Chloride Level 103, Carbon Dioxide Level 23, Calcium Level 8.8, Aspartate Amino Transf (AST/SGOT) 21, Alanine Aminotransferase (ALT/SGPT) 28, Alkaline Phosphatase 123H, Total Bilirubin 0.5#, Total Protein 6.8, Albumin 2.7L, Albumin/Globulin Ratio 0.66L 11/23/18 06:05: Blood Gas Bicarbonate Standard 20.8L, Arterial Blood pH 7.391, Arterial Blood Partial Pressure CO2 33.3L, Arterial Blood Partial Pressure O2 78.2, Arterial B lood Total CO2 20.8L, Arterial Blood HCO3 19.8L, Arterial Blood Base Excess - 4.3L, Arterial Blood Oxygen Saturation 95.1 CBC/BMP Laboratory Tests 11/22/18 11:12 Red Blood Count 4.87, Mean Corpuscular Volume 87.1, Mean Corpuscular Hemoglobin 28.1, Mean Corpuscular Hemoglobin Concent 32.3, Red Cell Distribution Width 14.6 H, Neutrophils (%) (Auto) 58.2, Lymphocytes (%) (Auto) 30.6, Monocytes (%) (Auto) 7.9 H, Eosinophils (%) (Auto) 2.6, Basophils (%) (Auto) 0.3, Neutrophils # (Auto) 6.3, Lymphocytes # (Auto) 3.3, Monocytes # (Auto) 0.9 H, Eosinophils # (Auto) 0.3, Basophils # (Auto) 0.0 11/23/18 05:04 Red Blood Count 4.32, Mean Corpuscular Volume 85.0, Mean Corpuscular Hemoglobin 27.3, Mean Corpuscular Hemoglobin Concent 32.2, Red Cell Distribution Width 14.6 H, Neutrophils (%) (Auto) 51.5, Lymphocytes (%) (Auto) 35.6, Monocytes (%) (Auto) 8.6 H, Eosinophils (%) (Auto) 3.4 H, Basophils (%) (Auto) 0.4, Neutrophils # (Auto) 5.6, Lymphocytes # (Auto) 3.9, Monocytes # (Auto) 0.9 H, Eosinophils # (Auto) 0.4, Basophils # (Auto) 0.0, Calcium Level 8.8, Aspartate Amino Transf (AST/SGOT) 21, Alanine Aminotransferase (ALT/SGPT) 28, Alkaline Phosphatase 123 H, Total Bilirubin 0.5 #, Total Protein 6.8, Albumin 2.7 L Microbiology Microbiology 11/22/18 Acid Fast Stain, Received Pending 11/22/18 Mycobacterial Culture, Received Pending 11/22/18 Fungal Smear, Received Pending 11/22/18 Fungal Culture, Received Pending 11/22/18 Gram Stain, Received Pending 11/22/18 Body Fluid Culture, Received Pending 11/22/18 Anaerobic Culture, Received Pending AMITA PAINTER DO Nov 23, 2018 10:08 BEST CALLEJAS MD Nov 24, 2018 11:30
[2018-11-23] MEDS ORDERED: ISOVUE-370 76% 100ML VIAL (Q9967) As Ordered ONE (11:11)
[2018-11-23 12:00] VITALS: BP 122/62
--- NOTE | 2018-11-23 14:48 | REP ---
CT of the abdomen pelvis without and with IV contrast and with bowel contrast: Comparison is the chest CT of 11/22/2018. There has been interval placement of a left thoracotomy tube and the left pleural fluid collection has significantly decreased in size. There are multiple low density irregular hepatic nodules throughout both right and left lobes, compatible with hepatic metastases. Some of these were identified on the comparison chest CT. Non these lesions were present on a prior abdomen/pelvis CT dated 03/21/2015. There are small calculi in the collapsed gallbladder. This is unchanged from both prior studies. I suspect there is a 3.0 cm mass in the pancreatic uncinate process, not present on 03/21/2015. There is no evidence of pancreatitis or pancreatic duct dilatation. There are numerous mesenteric nodules anteriorly , likely mesenteric nodes. There are mesenteric nodes at the leonardo hepatis. The pancreas, adrenals, kidneys and abdominal aorta are unremarkable. There is no retroperitoneal adenopathy or mass. There is no bowel distension or obstruction. Pelvis: There is no ascites. The bladder is unremarkable. The uterus is atrophic. The adnexa are unremarkable. There is no ascites. There is sigmoid diverticulosis without diverticulitis. Impression: 3 cm mass in the pancreatic head/uncinate process. Numerous hypodense nodules throughout both right and left lobes of the liver compatible with metastases. Multiple mesenteric nodules, metastases versus lymph nodes. Cholelithiasis, gallbladder collapsed. No ascites. Diverticulosis without diverticulitis. No lytic, blastic or destructive skeletal changes. Electronically Signed by Freddie Kelly MD 11/23/2018 02:39 P
[2018-11-23 16:00] VITALS: BP 137/60
--- NOTE | 2018-11-23 16:44 | REP ---
CHEST, TWO VIEWS: Two views of the chest are performed. Left chest tube is in place. A small amount of left pleural effusion or thickening is seen. There is patchy parenchymal opacity inferiorly on the left. Small focal pneumothorax is seen on the left posteriorly. Right lung remains clear. Cardiomediastinal silhouette is unchanged. Electronically Signed by Freddie Day MD 11/24/2018 04:59 P
[2018-11-23] MEDS ORDERED: ONDANSETRON 4 MG TAB (S0181) PO PRN (18:30)
[2018-11-23 20:00] VITALS: BP 134/66
[2018-11-23 23:59] VITALS: BP 118/62
[2018-11-24] VITALS (8 sets, daily range): BP systolic 109–154; BP diastolic 60–78
[2018-11-24] MEDS: KETOROLAC 30 MG/ML VIAL (J1885) IV SCH ×5 (00:02→23:19)
[2018-11-24] MEDS: NORCO, ANEXSIA 5/325MG TABLET (HYDROcodone/ACETAMINOPHEN) PO PRN (00:02)
[2018-11-24] MEDS: LEVALBUTEROL 1.25 MG/0.5 ML CONCENTRATE NEB NEB SCH ×4 (01:56→19:42)
[2018-11-24 06:07] LABS: BASO % 0.3 % (0.0-1.0); EOS # 0.4 10^3/uL (0.0-0.5); HEMATOCRIT 36.9 % (36.0-47.0); HEMOGLOBIN 11.7 g/dl (12.0-15.5); LYMPH # 3.1 10^3/uL (1.5-5.0); LYMPH % 30.3 % (24.0-44.0); MEAN CORPUSCULAR HEMOGLOBIN 27.6 pg (27.0-33.0); MEAN CORPUSCULAR HGB CONC 31.7 g/dl (32.0-36.5); MONO # 0.9 10^3/uL (0.0-0.8); NEUTROPHILS # 5.7 10^3/uL (1.5-8.5); NEUTROPHILS % 55.9 % (36.0-66.0); PLATELET COUNT, AUTOMATED 250 10^3/uL (150-450); RED BLOOD COUNT 4.24 10^6/uL (4.00-5.40); WHITE BLOOD COUNT 10.1 10^3/uL (4.0-10.0)
[2018-11-24 06:37] LABS: ALBUMIN 2.5 GM/DL (3.2-5.2); ALT/SGPT 27 U/L (12-78); BILIRUBIN,TOTAL 0.4 MG/DL (0.2-1.0); BLOOD UREA NITROGEN 13 MG/DL (7-18); CALCIUM LEVEL 9.1 MG/DL (8.5-10.1); CARBON DIOXIDE LEVEL 28 MEQ/L (21-32); CHLORIDE LEVEL 103 MEQ/L (98-107); CREATININE FOR GFR 0.76 MG/DL (0.55-1.30); GLOMERULAR FILTRATION RATE > 60.0 (>51); GLUCOSE, FASTING 165 MG/DL (70-100); POTASSIUM SERUM 4.6 MEQ/L (3.5-5.1); SODIUM LEVEL 136 MEQ/L (136-145); TOTAL PROTEIN 6.7 GM/DL (6.4-8.2)
--- NOTE | 2018-11-24 07:25 | IPNPDOC ---
Subjective Date Seen The patient was seen on 11/24/18. Subjective Chief Complaint/HPI Pt was examined at bedside today. It was noted that she had some chest pain earlier. At the time of the examination, patient said that the chest pain had been resolved but no further info about chest pain can be obtained as she stated it was gone. Denies any nausea, vomiting, fever, chills, diarrhea, blood in stool, or abdominal pain when laying still. Pt reported abd tenderness when she was being palpitated General: Denies: Chills Constitutional: Denies: Chills, Fever Pulmonary: Reports: Dyspnea, Cough, Pleuritic Chest Pain Gastrointestinal: Reports: Other Symptoms (pos for abd tenderness); Denies: Nausea, Vomiting, Diarrhea, Constipation, Hematochezia Objective Physical Examination General Exam: Positive: Alert, No Acute Distress Eye Exam: Negative: Sclera icteric ENT Exam: Positive: Atraumatic, Other ENT (poor dentation) Chest Exam: Positive: Normal air movement, Diminished (Mild in left ), Other (B/l dullness to percussion in lower lung region. Chest tube vac noted with red pleural fluid noted in tube); Negative: Rales, Rhonchi, Wheezing Heart Exam: Positive: Rate Normal, Regular Rhythm, Normal S1, Normal S2; Negative: Murmurs Abdomen Exam: Positive: Normal bowel sounds, Soft, Tenderness (in LUQ and LLQ) Extremity Exam: Positive: Normal pulses; Negative: Edema, Tenderness, Swelling Skin Exam: Positive: Nl turgor and temperature Neuro Exam: Positive: Normal Speech Psych Exam: Positive: Mood NL, Memory Intact, Oriented x 3 Assessment /Plan Assessment 1. Dyspnea due to left malignant pleural effusion, improving s/p chest tube insertion -Large left pleural effusion with enhancing ring noted on CT chest with adjacent atelectasis/infiltrate in the left lung. -Several liver nodules peritoneal nodules in the upper abdomen anteriorly suspected to be metastatic lesions as well as portal adenopathy. -CT abd showed 3 cm mass in the pancreatic head/uncinate process; hypodense nodules throughout both right and left lobes of the liver. Multiple mesenteric nodules. -Dr. Torres consulted by ER, and we appreciate Dr. Torres's assist and input in patient care. S/p chest tube placement -Pt will be planned for CT-guided liver biopsy today -Pt sat well on RA. Incentive spirometry; xopenex 2. Left sided malignant exudative pleural effusion s/p chest tube insertion - LDH ratio 3.86; red turbid appearance. - Amylase ratio <1 however a 3cm pancreatic head mass noted - Cell block result consistent with metastatic non-small cell carcinoma. 3. Pleuritis 2/2 left sided malignant pleural effusion -pleuritic chest pain noted -EKG and trop unremarkable -pt stated pain resolved 4. Pancreatic head mass likely GI malignancy -Abdominal pain with weight loss -Several liver nodules peritoneal nodules in the upper abdomen anteriorly suspected to be metastatic lesions as well as portal adenopathy -Abd CT showed 3 cm mass in the pancreatic head/uncinate process. Numerous hypodense nodules throughout both right and left lobes of the liver as well as multiple mesenteric nodule noted. -Pain meds with Zofran PRN -Pt denies any past IV use and denies hx of hepatitis; no jaundice noted. -AFP wnl, CEA elevated, and CA 19-9 pending. Occult Guiac blood pending -HA1C ordered to evaluate pancreatic endocrine function; further onco workups recommend outpt workup 5. Diabetes mellitus, non-insulin dependent -pt was on glipizide and metformin outpt but reported stopping glipizide on her own due to the weight loss -Hold home DM meds. Pt will be on insulin SS and glucose checks -Last A1C in 2015 showed pre-DM; recheck A1C due to pancreatic mass to evaluate pancreas endocrine function 6. HTN -Cont home med lisinopril. Vital signs as scheduled 7. GERD -On protonix 40mg daily DVT prophylaxis: SCD, TEDS, and heparin SQ Code status: Patient is full code DISPO: likely malignant pleural effusion. Pending liver node biopsy. I saw and evaluated the patient. I agree with the findings and plan of care as documented in the above note Plan/VTE VTE Prophylaxis Ordered?: Yes VS, I&O, 24H, Fishbone Vital Signs/I&O Vital Signs Date Time Temp Pulse Resp B/P (MAP) Pulse Ox O2 Delivery O2 Flow Rate FiO2 11/24/18 07:21 96.9 86 20 143/77 (99) 100 11/22/18 17:47 4.0 11/22/18 10:55 Room Air I&O- Last 24 Hours up to 6 AM 11/24/18 06:00 Intake Total 1020 ml Output Total 1785 ml Balance -765 ml Laboratory Data 24H LABS Laboratory Tests 2 11/23/18 12:00: Bedside Glucose (Misc Panel) 190H 11/23/18 16:29: Bedside Glucose (Misc Panel) 255H 11/23/18 21:13: Bedside Glucose (Misc Panel) 264H 11/24/18 05:40: Immature Granulocyte % (Auto) 0.5, White Blood Count 10.1H, Red Blood Count 4.24, Hemoglobin 11.7L, Hematocrit 36.9, Mean Corpuscular Volume 87.0, Mean Corpuscular Hemoglobin 27.6, Mean Corpuscular Hemoglobin Concent 31.7L, Red Cell Distribution Width 14.9H, Platelet Count 250, Neutrophils (%) (Auto) 55.9, Lymphocytes (%) (Auto) 30.3, Monocytes (%) (Auto) 9.0H, Eosinophils (%) (Auto) 4.0H, Basophils (%) (Auto) 0.3, Neutrophils # (Auto) 5.7, Lymphocytes # (Auto) 3.1, Monocytes # (Auto) 0.9H, Eosinophils # (Auto) 0.4, Basophils # (Auto) 0.0, Nucleated Red Blood Cells % (auto) 0.0, Anion Gap 5L, Glomerular Filtration Rate > 60.0, Blood Urea Nitrogen 13, Creatinine 0.76, Sodium Level 136, Potassium Level 4.6#, Chloride Level 103, Carbon Dioxide Level 28, Calcium Level 9.1, Aspartate Amino Transf (AST/SGOT) 23, Alanine Aminotransferase (ALT/SGPT) 27, A lkaline Phosphatase 116, Total Bilirubin 0.4, Total Protein 6.7, Albumin 2.5L, Albumin/Globulin Ratio 0.60L CBC/BMP Laboratory Tests 11/24/18 05:40 Red Blood Count 4.24, Mean Corpuscular Volume 87.0, Mean Corpuscular Hemoglobin 27.6, Mean Corpuscular Hemoglobin Concent 31.7 L, Red Cell Distribution Width 14.9 H, Neutrophils (%) (Auto) 55.9, Lymphocytes (%) (Auto) 30.3, Monocytes (%) (Auto) 9.0 H, Eosinophils (%) (Auto) 4.0 H, Basophils (%) (Auto) 0.3, Neutrophils # (Auto) 5.7, Lymphocytes # (Auto) 3.1, Monocytes # (Auto) 0.9 H, Eosinophils # (Auto) 0.4, Basophils # (Auto) 0.0, Calcium Level 9.1, Aspartate Amino Transf (AST/SGOT) 23, Alanine Aminotransferase (ALT/SGPT) 27, Alkaline Phosphatase 116, Total Bilirubin 0.4, Total Protein 6.7, Albumin 2.5 L Microbiology Microbiology 11/22/18 Acid Fast Stain, Received Pending 11/22/18 Mycobacterial Culture, Received Pending 11/22/18 Fungal Smear, Received Pending 11/22/18 Fungal Culture, Received Pending 11/22/18 Gram Stain - Final, Resulted 11/22/18 Body Fluid Culture, Resulted Pending 11/22/18 Anaerobic Culture, Resulted Pending AMITA PAINTER DO Nov 24, 2018 07:25 BEST CALLEJAS MD Nov 25, 2018 09:47
[2018-11-24] MEDS: HumaLOG INSULIN (NovoLOG) PER UNIT SC SCH ×4 (07:30→21:00)
[2018-11-24] MEDS ORDERED: D5W/0.9% SODIUM CHLORIDE 1,000 ML IV SCH (08:30)
[2018-11-24] MEDS: HEPARIN SOD (PORCINE) 5000 UNITS/ML VIAL SC SCH ×2 (09:00→20:30)
--- NOTE | 2018-11-24 09:45 | REP ---
CHEST, TWO VIEWS: Two views of the chest are performed. COMPARISON: 11/23/2018. Left chest tube remains in place. There is a small focal pneumothorax posterolaterally and inferiorly on the left, unchanged. There is adjacent mild pleural fluid/thickening and patchy parenchymal opacity, essentially stable. Heart and mediastinum are unchanged. IMPRESSION: Stable exam. Electronically Signed by Freddie Day MD 11/24/2018 05:34 P
[2018-11-24] MEDS: PANTOPRAZOLE 40MG TAB (PROTONIX) PO SCH (09:59)
[2018-11-24] MEDS: MOM 30ML SUSPENSION UDC PO SCH (09:59)
[2018-11-24] MEDS: DOCUSATE SODIUM 100 MG CAP PO SCH ×2 (09:59→20:33)
[2018-11-24] MEDS: LISINOPRIL 10 MG TAB PO SCH (09:59)
[2018-11-24] MEDS ORDERED: LIDOCAINE 1% MDV 20ML VIAL As Ordered ONE (11:49)
--- NOTE | 2018-11-24 14:54 | ECGEPIP ---
[facility] Test Date: 2018-11-24 Pat Name: AMINTA PEARSON Department: Room: [place] [address] Gender: Female Bias Binding Cutter: CONNIE : [id number] Requested By: AWAIS PAINTING Order Number: [id number] Reading MD: Leon Mittal Measurements Intervals Dwight Rate: 90 P: 55 IL: 152 QRS: 42 QRSD: 77 T: 36 QT: 322 QTc: 394 Interpretive Statements SINUS RHYTHM Electronically Signed on 11-24-2018 14:54:13 EDT by Leon Mittal
--- NOTE | 2018-11-24 16:38 | REP ---
ULTRASOUND-GUIDED LIVER BIOPSY The procedure was performed under the direct supervision of Dr. Day. Patient has a history of multiple low-density irregular hepatic nodules throughout both right and left lobes seen on a previous CT scan dated 11/23/2018. A nodule in the right lobe of the liver was localized using ultrasound guidance. The skin was prepped and draped in a sterile fashion. 1% lidocaine was used as a local anesthetic. Using ultrasound guidance a 19/20 gauge coaxial needle biopsy system was inserted and advanced into the nodule. Five core biopsy samples were obtained and sent to lab. The patient tolerated the procedure well and there were no immediate complications. After the appropriate amount of monitored convalescence the patient was discharged from the department. Electronically Signed by RAVI Steel 11/24/2018 03:25 P Electronically Signed by Freddie Day MD 11/24/2018 04:28 P
[2018-11-24] MEDS ORDERED: FLUBLOK(EGG FREE)(QUAD)INFLUENZA VACC 0.5ML SYRINGE (90682)18YRS&OLDER IM ONE (17:45)
[2018-11-24] MEDS: PERCOCET 5MG/325MG TAB PO PRN (21:17)
[2018-11-25] VITALS (7 sets, daily range): BP systolic 103–164; BP diastolic 56–80
[2018-11-25] MEDS: LEVALBUTEROL 1.25 MG/0.5 ML CONCENTRATE NEB NEB SCH ×4 (00:02→19:22)
[2018-11-25] MEDS: KETOROLAC 30 MG/ML VIAL (J1885) IV SCH ×4 (05:47→23:00)
[2018-11-25 06:00] LABS: BASO % 0.5 % (0.0-1.0); EOS # 0.3 10^3/uL (0.0-0.5); HEMATOCRIT 35.7 % (36.0-47.0); HEMOGLOBIN 11.4 g/dl (12.0-15.5); LYMPH # 2.9 10^3/uL (1.5-5.0); LYMPH % 35.4 % (24.0-44.0); MEAN CORPUSCULAR HEMOGLOBIN 28.2 pg (27.0-33.0); MEAN CORPUSCULAR HGB CONC 31.9 g/dl (32.0-36.5); MEAN CORPUSCULAR VOLUME 88.4 fl (80.0-96.0); MONO # 0.8 10^3/uL (0.0-0.8); MONO % 9.4 % (0.0-5.0); NEUTROPHILS # 4.1 10^3/uL (1.5-8.5); NEUTROPHILS % 50.2 % (36.0-66.0); PLATELET COUNT, AUTOMATED 242 10^3/uL (150-450); RED BLOOD COUNT 4.04 10^6/uL (4.00-5.40); WHITE BLOOD COUNT 8.1 10^3/uL (4.0-10.0)
[2018-11-25 06:23] LABS: ALBUMIN 2.5 GM/DL (3.2-5.2); ALT/SGPT 26 U/L (12-78); BILIRUBIN,TOTAL 0.4 MG/DL (0.2-1.0); BLOOD UREA NITROGEN 11 MG/DL (7-18); CALCIUM LEVEL 9.1 MG/DL (8.5-10.1); CARBON DIOXIDE LEVEL 26 MEQ/L (21-32); CHLORIDE LEVEL 106 MEQ/L (98-107); GLOMERULAR FILTRATION RATE > 60.0 (>51); GLUCOSE, FASTING 145 MG/DL (70-100); POTASSIUM SERUM 4.8 MEQ/L (3.5-5.1); SODIUM LEVEL 140 MEQ/L (136-145); TOTAL PROTEIN 6.8 GM/DL (6.4-8.2)
--- NOTE | 2018-11-25 06:48 | IPN ---
DATE: 11/24/2018 Ms. Harrington is lying in bed comfortably. Her pain is being well controlled at the chest tube insertion site. Her vital signs show a maximum temperature (t-max) of 98.1 with a heart rate that ranges between 86 and 108 in a sinus rhythm with a respiratory rate of 16 to 20 without the use of accessory muscles, who is 93-100% saturated on room air and whose blood pressure is ranging between 154/65 to 109/61. Her intake and output over the past 24 hours has been recorded as 1220 in and 1620 out for a negativity of 400 mL. Her chest tube has put out 370 mL. She weighs 88.5 kg today compared to 80 kg yesterday. PHYSICAL EXAMINATION: LUNGS: Her left lung shows rales and rhonchi, most of which clear with coughing. Percussion is full to the diaphragm. CARDIAC EXAM: Without murmurs, clicks, gallops or rubs. I cannot feel her point of maximum impulse (PMI). S1 and S2 are normal. ABDOMEN: Soft, nontender. Bowel sounds are positive. There is no hepatomegaly. No costovertebral angle tenderness. EXTREMITIES: Show no pretibial edema. No calf tenderness. No differential swelling of the upper extremities. SKIN: Warm, dry and perfused without cyanosis or mottling, including that of the nail beds and knees. NECK: Supple. There is no jugular venous distention. No subcutaneous emphysema. Trachea is midline. MOUTH: Shows her mucous membranes to be pink and moist. Lips and commissures without lesions. There is no thrush. EYES: Show his pupils to be equal and reactive. Extraocular motion intact. Sclerae anicteric. NEUROLOGIC: Shows II through XII intact along with gross motor and gross sensation intact. Gait is not tested. PSYCHIATRIC: Shows her to be awake and alert, oriented times three with appropriate mood and affect and conversational. Her white count today is 10.8 with a hemoglobin and hematocrit of 11.7 and 35.9. Platelet count is 250 and stable. Differential shows 55% neutrophils, 30% lymphocytes, and 9% monocytes. There are no immature forms. No toxic granulations. Her chemistries are normal with a BUN and creatinine of 13 and 0.76. Glucose is 155 with a of 9.1 and an albumin of 2.5. Her fluid analysis shows a pH of 7.48, with 36-39 white cells, predominantly monocytes and/or lymphocytes. Glucose is 92 and LDH 718. This therefore looks to be an exudative effusion consistent with probable metastasis. Her chest x-ray shows her lung fully expanded to the chest wall. The chest tube is well within the chest. On the lateral view, there looks to be an air space posteriorly where the lung is not expanded to the chest wall. IMPRESSION: 1. Left sided lymphocytic pleural effusion. 2. Multiple lucencies in the liver consistent with metastatic disease. 3. Multiple peritoneal masses consistent with metastatic disease. 4. Family history of uterine cancer. 5. Tobacco abuse. 6. Prior tobacco abuse. 7. Diabetes. 8. Hypertension. PLAN AND DISCUSSION: I have spoken to Dr. Taylor of pathology and there is one cluster of malignant cells in the pleural fluid. There is not enough tissue for characterization and therefore we will undertake a liver biopsy. I have already talked to Dr. Carrington about the pathology results. Her CAT scan does show a mass in the pancreas and this may indeed be pancreatic carcinomatosis rather than uterine or ovarian. I am surprised that she has an air leak today, but her chest tube is (cut off). We will continue to observe it. She may have lung entrapment from a long standing pleural effusion.
--- NOTE | 2018-11-25 07:49 | IPNPDOC ---
Subjective Date Seen The patient was seen on 11/25/18. Subjective Chief Complaint/HPI air leak today Events since last encounter Pt examined at bedside; she reported improvement of dyspnea and productive cou gh; reported pleuritic chest pain resolved. Denies any abdominal pain but reported diffuse abdominal tenderness upon palpation thus preferred not to have her abd palpated. She reported no fever, chills, nausea, vomiting, or blood in stool General: Denies: Chills Constitutional: Denies: Chills, Fever Pulmonary: Reports: Dyspnea, Cough; Denies: Pleuritic Chest Pain Cardiovascular: Denies: Chest Pain, Palpitations Gastrointestinal: Reports: Abdominal Pain; Denies: Nausea, Vomiting Objective Physical Examination General Exam: Positive: Alert, No Acute Distress Eye Exam: Negative: Sclera icteric ENT Exam: Positive: Atraumatic, Other ENT (poor dentation) Chest Exam: Positive: Normal air movement, Diminished (Mild in left ), Other (B/l dullness to percussion in lower lung region; improving. Chest tube vac noted with red pleural fluid noted in tube); Negative: Rales, Rhonchi, Wheezing Heart Exam: Positive: Tachycardic, Regular Rhythm, Normal S1, Normal S2; Negative: Murmurs Abdomen Exam: Positive: Normal bowel sounds, Soft, Other (pt prefers no palpation of abdomen as it's tender) Extremity Exam: Positive: Normal pulses; Negative: Edema, Tenderness, Swelling Skin Exam: Positive: Nl turgor and temperature Neuro Exam: Positive: Normal Speech Psych Exam: Positive: Mood NL, Memory Intact, Oriented x 3 Assessment /Plan Assessment 1. Dyspnea due to left malignant pleural effusion, improving s/p chest tube insertion -Large left pleural effusion with enhancing ring noted on CT chest with adjacent atelectasis/infiltrate in the left lung. -Several liver nodules peritoneal nodules in the upper abdomen anteriorly suspected to be metastatic lesions as well as portal adenopathy. -CT abd showed 3 cm mass in the pancreatic head/uncinate process; hypodense nodules throughout both right and left lobes of the liver. Multiple mesenteric nodules. -Dr. Torres consulted by ER, and we appreciate Dr. Torres's assist and input in patient care. S/p chest tube placement -Some air leaks were noted -Pt s/p CT-guided liver biopsy today; pathology pending -Pt sat well on RA. Incentive spirometry; xopenex 2. Left sided malignant exudative pleural effusion s/p chest tube insertion - LDH ratio 3.86; red turbid appearance. - Amylase ratio <1 however a 3cm pancreatic head mass noted - Cell block result consistent with metastatic non-small cell carcinoma. -chest tube output 105ml yesterday 3. Pleuritis 2/2 left sided malignant pleural effusion -pleuritic chest pain noted -EKG and trop unremarkable -Cont to report no pleuritic pain 4. Pancreatic head mass likely GI malignancy -Abdominal pain with weight loss -Several liver nodules peritoneal nodules in the upper abdomen anteriorly suspected to be metastatic lesions as well as portal adenopathy -Abd CT showed 3 cm mass in the pancreatic head/uncinate process. Numerous hypodense nodules throughout both right and left lobes of the liver as well as multiple mesenteric nodule noted. -Pain meds with Zofran PRN -Pt denies any past IV use and denies hx of hepatitis; no jaundice noted. -AFP wnl, CEA elevated, and CA 19-9 pending. Occult Guiac blood neg -HA1C elevated likely 2/2 pancreatic endocrine function; further onco workups recommend outpt workup -Lengthy discussion regarding imaging and pleural fluid/cell block finding were discussed with patient with 2 daughters present and 1 family member on phone. Discussed with them malignant cells were noted in pleural fluid as well as multiple liver nodules and the pancreatic mass. Pt and family verbalized understanding and they are aware that she will likely require f/u outpt with oncology 5. Diabetes mellitus, non-insulin dependent -pt was on glipizide and metformin outpt but reported stopping glipizide on her own due to the weight loss -Hold home DM meds. Pt will be on insulin SS and glucose checks -Last A1C in 2015 showed pre-DM; current A1C 9 likely due to pancreatic mass and decreased endocrine function. Further workup of pancreatic fxn will be evaluated outpt. At this time we will continue insulin; consider starting low dose levemir if constantly requiring SS 6. HTN -Cont home med lisinopril. Vital signs as scheduled 7. GERD -On protonix 40mg daily DVT prophylaxis: SCD, TEDS, and heparin SQ Code status: Patient is full code DISPO: S/p liver nodule biopsy; pending pathology report. Chest tube oupt 105ml. I saw and evaluated the patient. I agree with the findings and plan of care as documented in the above note Plan/VTE VTE Prophylaxis Ordered?: Yes VS, I&O, 24H, [facility] Vital Signs/I&O Vital Signs Date Time Temp Pulse Resp B/P (MAP) Pulse Ox O2 Delivery O2 Flow Rate FiO2 11/25/18 07:39 96.1 86 20 121/67 (85) 95 11/24/18 08:10 Room Air 11/22/18 17:47 4.0 I&O- Last 24 Hours up to 6 AM 11/25/18 06:00 Intake Total 780 ml Output Total 340 ml Balance 440 ml Laboratory Data 24H LABS Laboratory Tests 2 11/24/18 08:13: Estimated Mean Plasma Glucose 212H, Hemoglobin A1c 9.0, Troponin I < 0.02 11/24/18 13:28: Bedside Glucose (Misc Panel) 205H 11/24/18 18:00: Bedside Glucose (Misc Panel) 222H 11/24/18 23:16: Bedside Glucose (Misc Panel) 174H 11/25/18 05:38: Immature Granulocyte % (Auto) 0.5, White Blood Count 8.1, Red Blood Count 4.04, Hemoglobin 11.4L, Hematocrit 35.7L, Mean Corpuscular Volume 88.4, Mean Corpuscular Hemoglobin 28.2, Mean Corpuscular Hemoglobin Concent 31.9L, Red Cell Distribution Width 15.0H, Platelet Count 242, Neutrophils (%) (Auto) 50.2, Lymphocytes (%) (Auto) 35.4, Monocytes (%) (Auto) 9.4H, Eosinophils (%) (Auto) 4.0H, Basophils (%) (Auto) 0.5, Neutrophils # (Auto) 4.1, Lymphocytes # (Auto) 2.9, Monocytes # (Auto) 0.8, Eosinophils # (Auto) 0.3, Basophils # (Auto) 0.0, Nucleated Red Blood Cells % (auto) 0.0, Anion Gap 8, Glomerular Filtration Rate > 60.0, Blood Urea Nitrogen 11, Creatinine 0.70, Sodium Level 140, Potassium Level 4.8, Chloride Level 106, Carbon Dioxide Level 26, Calcium Level 9.1, Aspartate Amino Transf (AST/SGOT) 16, Alanine Aminotransferase (ALT/SGPT) 26, Alkaline Phosphatase 116, Total Bilirubin 0.4, Total Protein 6.8, Albumin 2.5L, Albumin/Globulin Ratio 0.58L CBC/BMP Laboratory Tests 11/25/18 05:38 Red Blood Count 4.04, Mean Corpuscular Volume 88.4, Mean Corpuscular Hemoglobin 28.2, Mean Corpuscular Hemoglobin Concent 31.9 L, Red Cell Distribution Width 15.0 H, Neutrophils (%) (Auto) 50.2, Lymphocytes (%) (Auto) 35.4, Monocytes (%) (Auto) 9.4 H, Eosinophils (%) (Auto) 4.0 H, Basophils (%) (Auto) 0.5, Neutrophils # (Auto) 4.1, Lymphocytes # (Auto) 2.9, Monocytes # (Auto) 0.8, Eosinophils # (Auto) 0.3, Basophils # (Auto) 0.0, Calcium Level 9.1, Aspartate Amino Transf (AST/SGOT) 16, Alanine Aminotransferase (ALT/SGPT) 26, Alkaline Phosphatase 116, Total Bilirubin 0.4, Total Protein 6.8, Albumin 2.5 L Microbiology Microbiology 11/22/18 Acid Fast Stain, Received Pending 11/22/18 Mycobacterial Culture, Received Pending 11/22/18 Fungal Smear, Received Pending 11/22/18 Fungal Culture, Received Pending 11/22/18 Gram Stain - Final, Complete 11/22/18 Body Fluid Culture - Final, Complete 11/22/18 Anaerobic Culture - Final, Complete 11/24/18 Stool Occult Blood ([facility]) - Final, Complete AMITA PAINTER DO Nov 25, 2018 07:49 BEST CALLEJAS MD Nov 26, 2018 13:05
[2018-11-25] MEDS ORDERED: SLF 3 ML SYR IV PRN (09:00)
[2018-11-25] MEDS: DOCUSATE SODIUM 100 MG CAP PO SCH ×2 (09:00→21:00)
[2018-11-25] MEDS: MOM 30ML SUSPENSION UDC PO SCH (09:00)
[2018-11-25] MEDS: LISINOPRIL 10 MG TAB PO SCH (09:26)
[2018-11-25] MEDS: PANTOPRAZOLE 40MG TAB (PROTONIX) PO SCH (09:26)
[2018-11-25] MEDS: HEPARIN SOD (PORCINE) 5000 UNITS/ML VIAL SC SCH ×2 (09:27→21:15)
[2018-11-25] MEDS: HumaLOG INSULIN (NovoLOG) PER UNIT SC SCH ×4 (09:28→20:48)
--- NOTE | 2018-11-25 09:49 | REP ---
PA and lateral chest: Comparison is 11/24/2018. The left thoracotomy tube is unchanged. The left posterior inferior pneumothorax is unchanged. The pleural thickening and focal patchy density adjacent to the pneumothorax are unchanged. Remainder the lung louis are clear. Cardiac size is normal. The philip, mediastinum, skeletal structures are unremarkable. Impression: No interval change. Electronically Signed by Freddie Kelly MD 11/25/2018 09:40 A
[2018-11-25] MEDS: MAALOX 30 ML SUSP *UDC PO PRN ×2 (14:25→21:15)
[2018-11-25] MEDS: SLF 3 ML SYR IV SCH ×2 (14:26→21:15)
[2018-11-25] MEDS: PERCOCET 5MG/325MG TAB PO PRN (23:26)
[2018-11-26] MEDS: LEVALBUTEROL 1.25 MG/0.5 ML CONCENTRATE NEB NEB SCH ×4 (02:43→19:22)
[2018-11-26 04:00] VITALS: BP 137/56
[2018-11-26 05:29] LABS: BASO % 0.4 % (0.0-1.0); EOS # 0.4 10^3/uL (0.0-0.5); LYMPH # 2.9 10^3/uL (1.5-5.0); LYMPH % 31.2 % (24.0-44.0); MEAN CORPUSCULAR HEMOGLOBIN 28.4 pg (27.0-33.0); MEAN CORPUSCULAR HGB CONC 32.4 g/dl (32.0-36.5); MEAN CORPUSCULAR VOLUME 87.9 fl (80.0-96.0); MONO # 0.8 10^3/uL (0.0-0.8); MONO % 8.8 % (0.0-5.0); NEUTROPHILS # 5.2 10^3/uL (1.5-8.5); NEUTROPHILS % 55.2 % (36.0-66.0); PLATELET COUNT, AUTOMATED 245 10^3/uL (150-450); RED BLOOD COUNT 3.87 10^6/uL (4.00-5.40); WHITE BLOOD COUNT 9.3 10^3/uL (4.0-10.0)
[2018-11-26] MEDS: SLF 3 ML SYR IV SCH ×3 (05:46→20:52)
[2018-11-26] MEDS: KETOROLAC 30 MG/ML VIAL (J1885) IV SCH ×4 (05:46→22:32)
[2018-11-26 06:03] LABS: ALBUMIN 2.5 GM/DL (3.2-5.2); ALT/SGPT 26 U/L (12-78); BILIRUBIN,TOTAL 0.3 MG/DL (0.2-1.0); BLOOD UREA NITROGEN 12 MG/DL (7-18); CALCIUM LEVEL 8.8 MG/DL (8.5-10.1); CARBON DIOXIDE LEVEL 28 MEQ/L (21-32); CHLORIDE LEVEL 105 MEQ/L (98-107); CREATININE FOR GFR 0.79 MG/DL (0.55-1.30); GLOMERULAR FILTRATION RATE > 60.0 (>51); GLUCOSE, FASTING 163 MG/DL (70-100); POTASSIUM SERUM 4.9 MEQ/L (3.5-5.1); SODIUM LEVEL 140 MEQ/L (136-145); TOTAL PROTEIN 6.2 GM/DL (6.4-8.2)
[2018-11-26 08:00] VITALS: BP 140/78
[2018-11-26] MEDS: HumaLOG INSULIN (NovoLOG) PER UNIT SC SCH ×4 (08:31→20:37)
[2018-11-26] MEDS: MOM 30ML SUSPENSION UDC PO SCH (08:31)
[2018-11-26] MEDS: DOCUSATE SODIUM 100 MG CAP PO SCH ×2 (08:32→20:47)
[2018-11-26] MEDS: LISINOPRIL 10 MG TAB PO SCH (08:32)
[2018-11-26] MEDS: PANTOPRAZOLE 40MG TAB (PROTONIX) PO SCH (08:32)
[2018-11-26] MEDS: HEPARIN SOD (PORCINE) 5000 UNITS/ML VIAL SC SCH ×2 (08:32→20:52)
--- NOTE | 2018-11-26 08:32 | REPVR ---
PROCEDURE INFORMATION: Exam: CT Chest Without Contrast Exam date and time: 11/26/2018 7:04 AM Clinical history: 58 years old, female; Other: Lung entrapment; Additional info: Stautus of lung entrapment and air space TECHNIQUE: Imaging protocol: Computed tomography of the chest without contrast. 3D rendering: MIP reconstructed images were created and reviewed. Radiation optimization: All CT scans at this facility use at least one of these dose optimization techniques: automated exposure control; mA and/or kV adjustment per patient size (includes targeted exams where dose is matched to clinical indication); or iterative reconstruction. COMPARISON: CT ANGIO CHEST 11/22/2018 12:22 PM FINDINGS: Lungs: The central airways are patent. There are minimal secretions within the trachea. There has been improved aeration of the left lower lobe. There is moderate residual peripheral consolidation which appears most pronounced at the left base as well as subsegmental atelectasis and consolidation within the inferior lingula. There is increasing subsegmental atelectasis within the right lower lobe in the region of the posterior costophrenic sulcus. Minimal patchy airspace disease within the right upper lobe, right lower lobe and left upper lobe. There is atelectasis which extends along the left oblique fissure. Pleural space: There has been interval placement of a single left-sided chest tube which extends into the posteroinferior pleural space. The large left complex pleural fluid collection has significantly decreased in size with only a small amount of residual pleural fluid. There is a moderate amount of intrapleural air with multiple septations and loculations within the posterior and lateral aspects of the mid to lower left hemithorax extending to the costophrenic sulcus. The degree of pleural thickening within the left hemithorax appears unchanged. No significant pleural effusion on the right. Heart: Cardiac size is normal. Mild coronary artery calcification. Stable pericardial thickening or trace fluid. No significant pericardial effusion. Aorta: Thoracic atherosclerosis. No aneurysm. Lymph nodes: Multiple small mediastinal lymph nodes. These are nonspecific and may be reactive. No bulky adenopathy. Bones/joints: Osteopenia and degenerative changes. No destructive bony change. Soft tissues: Mild soft tissue edema along the left lateral chest tube tract. Mild subcutaneous emphysema along the left inferior chest wall. Liver: Subtle hypodense liver lesions are again visualized and appear unchanged and are indeterminate in appearance. IMPRESSION: 1. Interval placement of a left-sided chest tube with significant interval decrease in size of the large left complex pleural fluid collection. Residual left hydropneumothorax, predominantly comprised of intrapleural air and septations with only a small amount of residual pleural fluid. The degree of pleural thickening within the left hemithorax appears unchanged. 2. Improved aeration of the left lower lobe with moderate residual peripheral consolidation which appears most pronounced at the left base as well as subsegmental atelectasis and consolidation in the inferior lingula. There is increasing subsegmental atelectasis within the right lower lobe as well as minimal patchy airspace disease elsewhere within both lungs. 3. Stable appearance of the upper abdomen with ill-defined hypodense liver lesions, as previously described. Electronically signed by: Tim Cannon On 11/26/2018 08:31:55 AM
--- NOTE | 2018-11-26 08:44 | IPN ---
DATE: 11/25/2018 Ms. Harrington underwent her liver biopsy yesterday, and hopefully we will get the results back today. She is quite comfortable and pain at her chest tube site is well controlled. Her vital signs show a maximum temperature (Tmax) of 97.3 with a heart rate that ranges between 72-105 in a sinus rhythm, respiratory rate of 16-20 without the use of accessory muscles, who is 94-100% saturated on room air and whose blood pressure is ranging between 164/79-103/60. Her intake and output over the past 24 hours has been recorded as 660 in and 655 out for near equality with 105 mL out the chest tube. Her weight is pending today. On physical examination, her lungs show equal breath sounds on either side. There is some coarse rales and rhonchi most of which clear with coughing. Her chest tube does have an air leak, which started yesterday. Cardiac exam is without murmurs, clicks, gallops or rubs. I cannot feel her point of maximum impulse (PMI). S1 and S2 are normal. Abdomen is soft, nontender. Bowel sounds are positive. There is no hepatomegaly. No costovertebral angle (CVA) tenderness. Extremities show no pretibial edema. No calf tenderness. No differential swelling of the upper extremities. Skin is warm, dry and perfused without cyanosis or mottling, including that of the nail beds and knees. Neck is supple. There is no jugular venous distention. No subcutaneous emphysema. Trachea is midline. Mouth shows her mucous membranes to be pink and moist. Lips and commissures without lesions. There is no thrush. Eyes show her pupils equal and reactive. Extraocular motion intact. Sclerae anicteric. Neuro shows II-XII intact along with gross motor and gross sensation intact. Gait is not tested. Psychiatric shows her to be awake and alert, oriented times three with appropriate mood and affect and conversational. Her white count today is 8.1, down from 10.1 yesterday. Hemoglobin and hematocrit 11.4 and 35.7, essentially unchanged from yesterday, with a platelet count 242. Differential shows 50% neutrophils, 35% lymphocytes, 9% monocytes. There are no immature forms. No toxic granulations. Her electrolytes are normal with a BUN and creatinine of 11 and 0.70, and glucose of 145 and calcium 10.3 assuming a normal albumin of 4. This, therefore makes her marginally hypercalcemic. Liver biopsy is not back at this point in time. Her chest x-ray shows the lung particularly on the lateral film to have a major air space posteriorly with a probable thickened rind and/or compression. This may the source of her air leak. This x-ray was taken off suction. I did not the posterior air space yesterday while on suction. IMPRESSION: 1. Left-sided malignant pleural effusion. 2. Multiple lucencies in liver consistent with metastatic disease. 3. Multiple peritoneal masses consistent with metastatic disease. 4. Family history of uterine cancer. 5. Tobacco abuse. 6. Prior tobacco abuse. 7. Diabetes. 8. Hypertension. 9. Pancreatic head mass. PLAN AND DISCUSSION: As far as her chest tube is concerned, I will leave her off suction and follow her chest x-ray. If the chest x-ray does not get worse, I will pull the tube. I will settle for a residual air space. Prior to doing that however, I will order CAT scan without contrast to see the extent of the air space.
[2018-11-26] MEDS ORDERED: ALTEPLASE 2 MG/2 ML VIAL (J2997 PER 1MG) XX ONE (08:45)
[2018-11-26] MEDS ORDERED: FLUBLOK(EGG FREE)(QUAD)INFLUENZA VACC 0.5ML SYRINGE (90682)18YRS&OLDER IM ONE (09:00)
--- NOTE | 2018-11-26 09:47 | REP ---
CHEST, TWO VIEWS: Two views of the chest were performed. COMPARISON: 11/25/2018 Small focal pneumothorax in the left lateral inferior lung base is unchanged. Adjacent parenchymal opacity appears essentially unchanged. Right lung remains clear. Heart and mediastinum are unchanged. There is a left chest tube, unchanged in position. Very small amount of fluid is seen posteriorly and inferiorly on the lateral view. Electronically Signed by Freddie Day MD 11/27/2018 05:48 P
[2018-11-26 12:00] VITALS: BP 117/76
--- NOTE | 2018-11-26 12:24 | IPNPDOC ---
Subjective Date Seen The patient was seen on 11/26/18. Subjective Chief Complaint/HPI Pt examined at bedside today. She reported no more dyspnea, cough. Denies pleuritic chest pain, palpitation, dizziness/lightheadedness, fever, or chills. She reported some nausea from food yesterday without emesis; stating it's due to increased oral intake compared to at home. General: Denies: Chills Constitutional: Denies: Chills, Fever Pulmonary: Denies: Dyspnea, Cough, Pleuritic Chest Pain Cardiovascular: Denies: Chest Pain, Palpitations Gastrointestinal: Reports: Nausea; Denies: Vomiting, Abdominal Pain Objective Physical Examination General Exam: Positive: Alert, No Acute Distress Eye Exam: Negative: Sclera icteric ENT Exam: Positive: Atraumatic, Other ENT Chest Exam: Positive: Normal air movement, Diminished (mild; more obvious on left) Heart Exam: Positive: Tachycardic, Regular Rhythm, Normal S1, Normal S2 Abdomen Exam: Positive: Normal bowel sounds, Soft, Other (pt prefers no palpation) Extremity Exam: Positive: Normal pulses Skin Exam: Positive: Nl turgor and temperature Neuro Exam: Positive: Normal Speech Psych Exam: Positive: Mood NL, Memory Intact, Oriented x 3 Assessment /Plan Assessment 1. Dyspnea due to left malignant pleural effusion, resolved s/p chest tube insertion -Large left pleural effusion with enhancing ring noted on CT chest with adjacent atelectasis/infiltrate in the left lung. -Several liver nodules peritoneal nodules in the upper abdomen anteriorly suspected to be metastatic lesions as well as portal adenopathy. -CT abd showed 3 cm mass in the pancreatic head/uncinate process; hypodense nodules throughout both right and left lobes of the liver. Multiple mesenteric nodules. -Dr. Torres consulted by ER, and we appreciate Dr. Torres's assist and input in patient care. S/p chest tube placement -Pt s/p CT-guided liver biopsy; pathology pending -Pt sat well on RA. Incentive spirometry; xopenex 2. Left sided malignant exudative pleural effusion s/p chest tube insertion - LDH ratio 3.86; red turbid appearance. - Amylase ratio <1 however a 3cm pancreatic head mass noted - Cell block result consistent with metastatic non-small cell carcinoma. -It was noted that the lung have a major air space posteriorly with a probable thickened rind and/or compression which may the source of her air leak -Chest tube suction d/c. -CT chest showed decrease in size of the large left complex pleural fluid c ollection; residual left hydropneumothorax comprised of intrapleural air and septations with. Improved aeration of LLL with mod. residual peripheral consolidation and subsegmental atelectasis and consolidation in the inferior lingula. Increasing subsegmental atelectasis in RLL -tPA pleurolysis today -chest tube output 55ml yesterday 3. Pleuritis 2/2 left sided malignant pleural effusion; resolved -pleuritic chest pain noted -EKG and trop unremarkable -Cont to report no pleuritic pain 4. Pancreatic head mass likely pancreatic malignancy with metastasis -CA 19-9 markedly elevated [id number] -Several liver nodules and peritoneal nodules in the upper abdomen anteriorly suspected to be metastatic lesions as well as portal adenopathy -Abd CT showed 3 cm mass in the pancreatic head/uncinate process. Numerous hypodense nodules throughout both right and left lobes of the liver as well as multiple mesenteric nodule noted. -Pain meds with Zofran PRN -Pt denies any past IV use and denies hx of hepatitis; no jaundice noted. -AFP wnl, CEA elevated. Occult Guiac blood neg -HA1C elevated likely 2/2 pancreatic endocrine function problem; further onco workups recommend outpt workup -Lengthy discussion regarding imaging and pleural fluid/cell block finding were discussed with patient with 2 daughters present and 1 family member on phone. Discussed with them malignant cells were noted in pleural fluid as well as multiple liver nodules and the pancreatic mass. Pt and family verbalized understanding and they are aware that she will likely require f/u outpt with oncology 5. Diabetes mellitus, non-insulin dependent -pt was on glipizide and metformin outpt but reported stopping glipizide on her own due to the weight loss -Hold home DM meds. Pt will be on insulin SS and glucose checks -Last A1C in 2015 showed pre-DM; current A1C was 9 likely due to pancreatic mass and decreased endocrine function. Further workup of pancreatic fxn will be evaluated outpt. At this time we will continue insulin;start low dose levemir for now 6. HTN -Cont home med lisinopril. Vital signs as scheduled 7. GERD -On protonix 40mg daily DVT prophylaxis: SCD, TEDS, and heparin SQ Code status: Patient is full code DISPO: S/p chest tube insertion; suction d/c for now. Liver nodule biopsy; pending pathology report. tPA pleurolysis today I saw and evaluated the patient. I agree with the findings and plan of care as documented in the above note Plan/VTE VTE Prophylaxis Ordered?: Yes VS, I&O, 24H, Fishbone Vital Signs/I&O Vital Signs Date Time Temp Pulse Resp B/P (MAP) Pulse Ox O2 Delivery O2 Flow Rate FiO2 11/26/18 08:32 148/68 11/26/18 08:00 97.0 90 18 95 11/24/18 08:10 Room Air 11/22/18 17:47 4.0 I&O- Last 24 Hours up to 6 AM 11/26/18 06:00 Intake Total 1200 ml Output Total 1105 ml Balance 95 ml Laboratory Data 24H LABS Laboratory Tests 2 11/25/18 17:23: Bedside Glucose (Misc Panel) 270H 11/25/18 20:46: Bedside Glucose (Misc Panel) 192H 11/26/18 05:19: Immature Granulocyte % (Auto) 0.4, White Blood Count 9.3, Red Blood Count 3.87L, Hemoglobin 11.0L, Hematocrit 34.0L, Mean Corpuscular Volume 87.9, Mean Corpuscular Hemoglobin 28.4, Mean Corpuscular Hemoglobin Concent 32.4, Red Cell Distribution Width 15.2H, Platelet Count 245, Neutrophils (%) (Auto) 55.2, Lymphocytes (%) (Auto) 31.2, Monocytes (%) (Auto) 8.8H, Eosinophils (%) (Auto) 4.0H, Basophils (%) (Auto) 0.4, Neutrophils # (Auto) 5.2, Lymphocytes # (Auto) 2.9, Monocytes # (Auto) 0.8, Eosinophils # (Auto) 0.4, Basophils # (Auto) 0.0, Nucleated Red Blood Cells % (auto) 0.0, Anion Gap 7L, Glomerular Filtration Rate > 60.0, Blood Urea Nitrogen 12, Creatinine 0.79, Sodium Level 140, Potassium Level 4.9, Chloride Level 105, Carbon Dioxide Level 28, Calcium Level 8.8, Aspartate Amino Transf (AST/SGOT) 18, Alanine Aminotransferase (ALT/SGPT) 26, Alkaline Phosphatase 123H, Total Bilirubin 0.3, Total Protein 6.2L, Albumin 2.5L, Albumin/Globulin Ratio 0.68L 11/26/18 11:46: Bedside Glucose (Misc Panel) 212H CBC/BMP Laboratory Tests 11/26/18 05:19 Red Blood Count 3.87 L, Mean Corpuscular Volume 87.9, Mean Corpuscular Hemoglobin 28.4, Mean Corpuscular Hemoglobin Concent 32.4, Red Cell Distribution Width 15.2 H, Neutrophils (%) (Auto) 55.2, Lymphocytes (%) (Auto) 31.2, Monocytes (%) (Auto) 8.8 H, Eosinophils (%) (Auto) 4.0 H, Basophils (%) (Auto) 0.4, Neutrophils # (Auto) 5.2, Lymphocytes # (Auto) 2.9, Monocytes # (Auto) 0.8, Eosinophils # (Auto) 0.4, Basophils # (Auto) 0.0, Calcium Level 8.8, Aspartate Amino Transf (AST/SGOT) 18, Alanine Aminotransferase (ALT/SGPT) 26, Alkaline Phosphatase 123 H, Total Bilirubin 0.3, Total Protein 6.2 L, Albumin 2.5 L Microbiology Microbiology 11/22/18 Acid Fast Stain, Received Pending 11/22/18 Mycobacterial Culture, Received Pending 11/22/18 Fungal Smear, Received Pending 11/22/18 Fungal Culture, Received Pending 11/22/18 Gram Stain - Final, Complete 11/22/18 Body Fluid Culture - Final, Complete 11/22/18 Anaerobic Culture - Final, Complete 11/24/18 Stool Occult Blood ([facility]ICA) - Final, Complete AMITA PAINTER DO Nov 26, 2018 12:24 BEST CALLEJAS MD Nov 28, 2018 13:47
[2018-11-26] MEDS: LEVEMIR (INSULIN DETEMIR) 1 UNITS/0.01ML SC SCH (12:30)
[2018-11-26] MEDS: MULTIVITAMINS/MINERALS THERAP 1 TAB PO SCH (13:18)
--- NOTE | 2018-11-26 14:22 | IPN ---
DATE: 11/26/2018 Ms. Harrington still has her air leak. I obtained a CT scan on her today and it she certainly looks as though she has entrapped lung. I am not sure whether the air leak is coming directly from the parenchyma or whether it is caused by air leaking into the chest by the chest tube site and then being evacuated. Her vital signs show a maximum temperature (Tmax) of 97.9 with a heart rate that ranges between 89-103 in a sinus rhythm, respiratory rate of 18-20 without the use of accessory muscles, who is 94% saturated on room air and whose blood pressure is ranging between 129/66-142/80. Her intake and output for the past 24 hours has been recorded as 1200 in and 800 out for a positivity of 320 mL. She has only put out 55 mL from the chest tube but she still has the air leak as noted above. Her weight today 89 kg compared to 88.5 kg yesterday. On physical examination, breath sounds are decreased on the left side with a full percussion note to the diaphragm. The right side shows normal vesicular sounds without wheezes, rhonchi or rales. Cardiac exam is without murmurs, clicks, gallops or rubs. I cannot feel her point of maximum impulse (PMI) through obesity. S1 and S2 are normal. Abdomen is soft, nontender. Bowel sounds are positive. There is no costovertebral angle (CVA) tenderness. No hepatomegaly. Extremities show no pretibial edema. No calf tenderness. No differential swelling of the upper extremities. Her skin is warm, dry and perfused without cyanosis or mottling, including that of the nail beds and knees. Neck is supple. There is no jugular venous distention. No subcutaneous emphysema. Trachea is midline. Mouth shows her mucous membranes to be pink and moist. Lips and commissures without lesions. There is no thrush. Eyes show her pupils equal and reactive. Extraocular motion intact. Sclerae anicteric. Neuro shows II-XII intact along with gross motor and gross sensation intact. Gait is not tested. Psychiatric shows her to be awake and alert, oriented times three with appropriate mood and affect and conversational. Her chest x-ray shows both from the PA and lateral views an air space posteriorly. CT scan confirms the air space in the same position posterior and laterally. Chest tube is in excellent position. There does look to be some fibrous stranding between the chest wall and the lung, and hopefully that bodes well for tissue plasminogen activator (tPA) pleurolysis. I do not see an underlying lung mass. There is no mediastinal lymphadenopathy, although the chest CT is done without contrast. There is no pericardial effusion. Her white count today is 9.3 with hemoglobin and hematocrit of 11.0 and 34.0 respectively, with a platelet count of 245 and stable. Differential shows 55% neutrophils, 31% lymphocytes, 8% monocytes. There are no immature forms. No toxic granulations. Hemoglobin and hematocrit are stable from yesterday. Her electrolytes are normal with a BUN and creatinine of 12 and 0.79, glucose of 163 and a calcium of 8.8 with a corresponding albumin of 2.5. Her calcium is less than 10, which now puts her back in the normal range of normal calcemia. Pathology is pending on her liver biopsy. IMPRESSION: 1. Left-sided malignant pleural effusion. 2. Multiple lucencies in liver consistent with metastatic disease. 3. Multiple peritoneal masses consistent with metastatic disease. 4. Family history of uterine cancer. 5. Tobacco abuse. 6. Prior tobacco abuse. 7. Diabetes. 8. Hypertension. 9. Pancreatic head mass. 10. Borderline hypercalcemia. PLAN AND DISCUSSION: As far as her chest goes, I will undertake tPA pleurolysis. Hopefully we will be able to lyse the loosely organized fibrous tissue and get her lung back to the chest wall. If not, we will have to accept her lung entrapment as she certainly does not need to undergo a pleural decortication. We will await the liver biopsy.
[2018-11-26 16:00] VITALS: BP 129/69
[2018-11-26 20:00] VITALS: BP 146/70
[2018-11-26] MEDS: MAALOX 30 ML SUSP *UDC PO PRN (20:52)
[2018-11-26] MEDS: PERCOCET 5MG/325MG TAB PO PRN (22:32)
[2018-11-26 23:59] VITALS: BP 115/67
[2018-11-27] MEDS: LEVALBUTEROL 1.25 MG/0.5 ML CONCENTRATE NEB NEB SCH ×4 (01:31→19:41)
[2018-11-27 04:00] VITALS: BP 116/59
[2018-11-27] MEDS: KETOROLAC 30 MG/ML VIAL (J1885) IV SCH ×3 (05:27→17:18)
[2018-11-27] MEDS: SLF 3 ML SYR IV SCH ×3 (05:27→21:14)
[2018-11-27 05:34] LABS: BASO # 0.1 10^3/uL (0.0-0.2); BASO % 0.5 % (0.0-1.0); EOS # 0.3 10^3/uL (0.0-0.5); EOS % 3.7 % (0.0-3.0); HEMATOCRIT 33.7 % (36.0-47.0); HEMOGLOBIN 10.6 g/dl (12.0-15.5); LYMPH # 2.8 10^3/uL (1.5-5.0); LYMPH % 30.5 % (24.0-44.0); MEAN CORPUSCULAR HGB CONC 31.5 g/dl (32.0-36.5); MEAN CORPUSCULAR VOLUME 88.9 fl (80.0-96.0); MONO # 0.7 10^3/uL (0.0-0.8); MONO % 7.5 % (0.0-5.0); NEUTROPHILS # 5.2 10^3/uL (1.5-8.5); NEUTROPHILS % 57.5 % (36.0-66.0); PLATELET COUNT, AUTOMATED 257 10^3/uL (150-450); RED BLOOD COUNT 3.79 10^6/uL (4.00-5.40); WHITE BLOOD COUNT 9.1 10^3/uL (4.0-10.0)
[2018-11-27 05:58] LABS: ALBUMIN 2.5 GM/DL (3.2-5.2); ALT/SGPT 25 U/L (12-78); BILIRUBIN,TOTAL 0.3 MG/DL (0.2-1.0); BLOOD UREA NITROGEN 12 MG/DL (7-18); CALCIUM LEVEL 9.1 MG/DL (8.5-10.1); CARBON DIOXIDE LEVEL 29 MEQ/L (21-32); CHLORIDE LEVEL 104 MEQ/L (98-107); CREATININE FOR GFR 0.73 MG/DL (0.55-1.30); GLOMERULAR FILTRATION RATE > 60.0 (>51); GLUCOSE, FASTING 147 MG/DL (70-100); POTASSIUM SERUM 4.9 MEQ/L (3.5-5.1); SODIUM LEVEL 139 MEQ/L (136-145); TOTAL PROTEIN 6.8 GM/DL (6.4-8.2)
[2018-11-27 08:00] VITALS: BP 135/69
[2018-11-27] MEDS: PANTOPRAZOLE 40MG TAB (PROTONIX) PO SCH (08:25)
[2018-11-27] MEDS: HEPARIN SOD (PORCINE) 5000 UNITS/ML VIAL SC SCH ×2 (08:25→21:13)
[2018-11-27] MEDS: HumaLOG INSULIN (NovoLOG) PER UNIT SC SCH ×4 (08:25→21:00)
[2018-11-27] MEDS: MULTIVITAMINS/MINERALS THERAP 1 TAB PO SCH (08:25)
[2018-11-27] MEDS: DOCUSATE SODIUM 100 MG CAP PO SCH ×2 (08:26→21:00)
[2018-11-27] MEDS: LEVEMIR (INSULIN DETEMIR) 1 UNITS/0.01ML SC SCH (08:26)
[2018-11-27] MEDS: MOM 30ML SUSPENSION UDC PO SCH (08:26)
[2018-11-27] MEDS: LISINOPRIL 10 MG TAB PO SCH (08:26)
--- NOTE | 2018-11-27 09:11 | REP ---
CHEST, TWO VIEWS: Two views of the chest are performed and compared to prior study of 11/26/2018. Left chest tube remains in place. Focal inferior left-sided pneumothorax is unchanged. The air fluid level on the lateral view posteriorly and inferiorly is no longer visualized. Adjacent parenchymal opacity in the left lung base is stable. Heart and mediastinum are unchanged. Electronically Signed by Freddie Day MD 11/27/2018 05:56 P
[2018-11-27 12:00] VITALS: BP 160/66
--- NOTE | 2018-11-27 12:40 | IPNPDOC ---
Date Seen The patient was seen on 11/27/18. Progress Note SUBJECTIVE: Patient reports that she continues to feel better today. She tells me her breathing is easier than yesterday she denies any pain shortness of breath nausea vomiting or diarrhea. She denies any fevers or chills OBJECTIVE PHYSICAL EXAMINATION: VITAL SIGNS: Please see below. GENERAL: Pleasant frail female appears older than stated age sitting up in bed she is awake alert oriented and speaking in complete sentences no acute distress HEENT: She is wearing bifocal lenses moist pedis membranes elevation CVP CARDIOVASCULAR: S1-S2 regular no additional heart sounds appreciated. RESPIRATORY: Diminished breath sounds at the left base but otherwise fairly good air movement in the upper lobes bilaterally. ABDOMINAL: Obese bowel sounds present abdomen soft and nontender EXTREMITIES: No clubbing cyanosis or edema NEUROLOGICAL: No focal deficits PSYCHOLOGICAL: Appropriate LABORATORY DATA, IMAGING STUDIES, MICROBIOLOGY: Please see below. DVT prophylaxis ordered?: Heparin every 12 Assessment and plan: This is a 58-year-old female who presented with shortness of breath and left-sided large pleural effusion status post chest tube placement with multiple liver nodules highly suspicious for metastatic cancer. 1. Dyspnea due to left malignant pleural effusion: resolved s/p chest tube insertion, thoracic surgery help greatly appreciated she remained with a chest tube. She is status post a liver biopsy hoping to obtain greater tissue sample elucidate her primary cancer. Likely stage IV disease based on her presentation. Certainly could be a pancreatic primary she doesn't appear to get a Mass as well as significantly elevated CA-19-9, she does have significant tobacco abuse history. We'll defer to thoracic surgery regarding chest tube management. We'll have to follow up her biopsy results closely with oncology consultation inpatient versus outpatient 2. Diabetes: She is normally on metformin and glipizide at home she is on sliding scale hospitalized hemoglobin A1c was 9. Glucose is well controlled while hospitalized 3. HTN: Controlled Cont home med lisinopril. Vital signs as scheduled 7. GERD: Continue with protonix 40mg daily Code status: Patient is full code DISPO: Pending chest tube removal VS, I&O, 24H, Fishbone Vital Signs/I&O Vital Signs Date Time Temp Pulse Resp B/P (MAP) Pulse Ox O2 Delivery O2 Flow Rate FiO2 11/27/18 08:26 120/60 11/27/18 08:00 97.1 98 17 96 11/24/18 08:10 Room Air 11/22/18 17:47 4.0 I&O- Last 24 Hours up to 6 AM 11/27/18 05:59 Intake Total 720 ml Output Total 1190 ml Balance -470 ml Laboratory Data 24H LABS Laboratory Tests 2 11/26/18 16:22: Bedside Glucose (Misc Panel) 205H 11/26/18 19:43: Bedside Glucose (Misc Panel) 210H 11/27/18 05:09: Immature Granulocyte % (Auto) 0.3, White Blood Count 9.1, Red Blood Count 3.79L, Hemoglobin 10.6L, Hematocrit 33.7L, Mean Corpuscular Volume 88.9, Mean Corpuscular Hemoglobin 28.0, Mean Corpuscular Hemoglobin Concent 31.5L, Red Cell Distribution Width 15.4H, Platelet Count 257, Neutrophils (%) (Auto) 57.5, Lymphocytes (%) (Auto) 30.5, Monocytes (%) (Auto) 7.5H, Eosinophils (%) (Auto) 3.7H, Basophils (%) (Auto) 0.5, Neutrophils # (Auto) 5.2, Lymphocytes # (Auto) 2.8, Monocytes # (Auto) 0.7, Eosinophils # (Auto) 0.3, Basophils # (Auto) 0.1, Nucleated Red Blood Cells % (auto) 0.0, Anion Gap 6L, Glomerular Filtration Rate > 60.0, Blood Urea Nitrogen 12, Creatinine 0.73, Sodium Level 139, Potassium Level 4.9, Chloride Level 104, Carbon Dioxide Level 29, Calcium Level 9.1, Aspartate Amino Transf (AST/SGOT) 15, Alanine Aminotransferase (ALT/SGPT) 25, Alkaline Phosphatase 117, Total Bilirubin 0.3, Total Protein 6.8, Albumin 2.5L, Albumin/Globulin Ratio 0.58L 11/27/18 11:37: Bedside Glucose (Misc Panel) 201H CBC/BMP Laboratory Tests 11/27/18 05:09 Red Blood Count 3.79 L, Mean Corpuscular Volume 88.9, Mean Corpuscular Hemoglobin 28.0, Mean Corpuscular Hemoglobin Concent 31.5 L, Red Cell Distributi on Width 15.4 H, Neutrophils (%) (Auto) 57.5, Lymphocytes (%) (Auto) 30.5, Monocytes (%) (Auto) 7.5 H, Eosinophils (%) (Auto) 3.7 H, Basophils (%) (Auto) 0.5, Neutrophils # (Auto) 5.2, Lymphocytes # (Auto) 2.8, Monocytes # (Auto) 0.7, Eosinophils # (Auto) 0.3, Basophils # (Auto) 0.1, Calcium Level 9.1, Aspartate Amino Transf (AST/SGOT) 15, Alanine Aminotransferase (ALT/SGPT) 25, Alkaline Phosphatase 117, Total Bilirubin 0.3, Total Protein 6.8, Albumin 2.5 L Microbiology Microbiology 11/22/18 Acid Fast Stain, Received Pending 11/22/18 Mycobacterial Culture, Received Pending 11/22/18 Fungal Smear, Received Pending 11/22/18 Fungal Culture, Received Pending 11/22/18 Gram Stain - Final, Complete 11/22/18 Body Fluid Culture - Final, Complete 11/22/18 Anaerobic Culture - Final, Complete 11/24/18 Stool Occult Blood ([facility]ICA) - Final, Complete BEST CALLEJAS MD Nov 27, 2018 12:40
--- NOTE | 2018-11-27 13:38 | IPN ---
DATE: 11/27/2018 Ms. Harrington underwent a tissue plasminogen activator (tPA) pleurolysis yesterday. After the tube was unclenched she had 440 mL out the chest tube. She states that she is breathing better today. She however still has the air leak. Her vital signs show a maximum temperature (Tmax) of 97.1 with a heart rate that ranges between 103-98 in a sinus rhythm, respiratory rate of 18-16 without the use of accessory muscles who is 96% saturated on room air and whose blood pressure is ranging between 135/69-116/59. Her intake and output for the past 24 hours has been recorded as 720 in and 90 out for a negativity of 270 mL. As noted above, she has put out 440 out the chest tube yesterday and 45 since midnight. Weight today is 88.6 kg compared to 89 kg yesterday. On physical examination, she has decreased breath sounds in the left hemithorax with some faint inspiratory rales and rhonchi. Mostly is cleared with coughing. Percussion notes are full to the diaphragm. Cardiac exam is without murmurs, clicks, gallops or rubs. I cannot feel her point of maximum impulse (PMI). S1 and S2 are normal. Abdomen soft, nontender. Bowel sounds positive. There is no hepatomegaly. No costovertebral angle (CVA) tenderness. Extremities show no pretibial edema. No calf tenderness. No differential swelling of the upper extremities. Skin is warm, dry and perfused without cyanosis or mottling, including that of the nail beds and knees. Neck is supple. There is no jugular venous distention. No subcutaneous emphysema. Trachea is midline. Mouth shows the mucous membranes to be pink and moist. Lips and commissures without lesions. There is no thrush. Eyes show her pupils equal and reactive. Extraocular muscles intact. Sclerae nonicteric. Neuro shows II-XII intact along with gross motor and gross sensation intact. Gait is not tested. Psychiatric shows her to be awake and alert, oriented times three with appropriate mood and affect and conversational. Her white count today is 9.1 with hemoglobin and hematocrit of 10.6 and 33.7, essentially unchanged from yesterday, with a platelet count of 257. Differential shows 57% neutrophils, 30% lymphocytes, 7% monocytes. There are no immature forms. No toxic granulations. Her electrolytes are normal with a BUN and creatinine of 12 and 0.73, calcium of 9.1 with a corresponding albumin of 2.9. This makes her corrected calcium to be 10.3 making her hypercalcemic. AST and ALT are normal. Her chest x-ray today still shows her lung entrapped with an air space posteriorly and laterally. There is very little, if any fluid left in the costophrenic angle. IMPRESSION: 1. Left-sided malignant pleural effusion. 2. Lung entrapment. 3. Multiple lucencies in liver consistent with metastatic disease. 4. Multiple peritoneal masses consistent with metastatic disease. 5. Pancreatic head mass. 6. Family history of uterine cancer. 7. Tobacco abuse. 8. Diabetes. 9. Hypertension. 10. Hypercalcemia. PLAN AND DISCUSSION: As far as her lung entrapment goes, I do not think that is going to come back to the chest wall. The problem is the continuing air leak. I am not sure if that is real, and therefore, I am going to clamp the chest tube today and carefully watch her. If she develops subcutaneous emphysema or if the lung shows a change in its expansion tomorrow on x-ray, we will have to place her chest tube back on suction while unclamp her chest tube. We will wait the liver biopsy results tomorrow. ROBERT
[2018-11-27 16:00] VITALS: BP 138/85
[2018-11-27 20:00] VITALS: BP 132/75
[2018-11-27] MEDS: PERCOCET 5MG/325MG TAB PO PRN (22:37)
[2018-11-28] VITALS: BP 127/76
[2018-11-28] MEDS: LEVALBUTEROL 1.25 MG/0.5 ML CONCENTRATE NEB NEB SCH ×4 (02:00→20:18)
[2018-11-28 04:00] VITALS: BP 125/66
[2018-11-28 05:54] LABS: BASO # 0.1 10^3/uL (0.0-0.2); BASO % 0.5 % (0.0-1.0); EOS # 0.3 10^3/uL (0.0-0.5); EOS % 3.2 % (0.0-3.0); HEMATOCRIT 34.1 % (36.0-47.0); HEMOGLOBIN 10.5 g/dl (12.0-15.5); LYMPH # 2.5 10^3/uL (1.5-5.0); LYMPH % 26.4 % (24.0-44.0); MEAN CORPUSCULAR HEMOGLOBIN 27.6 pg (27.0-33.0); MEAN CORPUSCULAR HGB CONC 30.8 g/dl (32.0-36.5); MEAN CORPUSCULAR VOLUME 89.7 fl (80.0-96.0); MONO # 0.8 10^3/uL (0.0-0.8); MONO % 8.4 % (0.0-5.0); NEUTROPHILS # 5.7 10^3/uL (1.5-8.5); PLATELET COUNT, AUTOMATED 222 10^3/uL (150-450); WHITE BLOOD COUNT 9.3 10^3/uL (4.0-10.0)
[2018-11-28 06:11] LABS: ALBUMIN 2.4 GM/DL (3.2-5.2); ALT/SGPT 26 U/L (12-78); BILIRUBIN,TOTAL 0.4 MG/DL (0.2-1.0); BLOOD UREA NITROGEN 13 MG/DL (7-18); CALCIUM LEVEL 8.9 MG/DL (8.5-10.1); CARBON DIOXIDE LEVEL 26 MEQ/L (21-32); CHLORIDE LEVEL 104 MEQ/L (98-107); CREATININE FOR GFR 0.67 MG/DL (0.55-1.30); GLOMERULAR FILTRATION RATE > 60.0 (>51); GLUCOSE, FASTING 143 MG/DL (70-100); POTASSIUM SERUM 4.8 MEQ/L (3.5-5.1); SODIUM LEVEL 137 MEQ/L (136-145); TOTAL PROTEIN 6.7 GM/DL (6.4-8.2)
[2018-11-28] MEDS: SLF 3 ML SYR IV SCH ×3 (06:30→21:02)
[2018-11-28] MEDS: HumaLOG INSULIN (NovoLOG) PER UNIT SC SCH ×5 (07:30→20:34)
[2018-11-28 08:00] VITALS: BP 123/62
--- NOTE | 2018-11-28 08:10 | REP ---
PA and lateral chest: Comparison is 11/27/2018. The left thoracotomy tube is unchanged. There is a loculated pneumothorax inferolaterally in the left hemithorax, and unchanged. There is an air-fluid level inferiorly within the pneumothorax. Right lung is clear. Cardiac size normal. The philip, mediastinum, skeletal structures are unremarkable. Impression: The left hydropneumothorax as described. Thoracotomy tube is unchanged. Electronically Signed by Freddie Kelly MD 11/28/2018 08:02 A
[2018-11-28] MEDS: HEPARIN SOD (PORCINE) 5000 UNITS/ML VIAL SC SCH ×2 (08:42→20:32)
[2018-11-28] MEDS: MOM 30ML SUSPENSION UDC PO SCH (08:42)
[2018-11-28] MEDS: LISINOPRIL 10 MG TAB PO SCH (08:42)
[2018-11-28] MEDS: PANTOPRAZOLE 40MG TAB (PROTONIX) PO SCH (08:42)
[2018-11-28] MEDS: MULTIVITAMINS/MINERALS THERAP 1 TAB PO SCH (08:42)
[2018-11-28] MEDS: DOCUSATE SODIUM 100 MG CAP PO SCH ×2 (08:43→20:31)
[2018-11-28] MEDS: LEVEMIR (INSULIN DETEMIR) 1 UNITS/0.01ML SC SCH (08:43)
--- NOTE | 2018-11-28 09:26 | IPNPDOC ---
Text Note Date of Service The patient was seen on 11/28/18. NOTE HPI: Ms. Harrington was seen at bedside this morning and described no acute changes overnight. She complains of SOB when walking around the hospital and that she cant lay flat due to discomfort from the chest tube. She also stated that she avoids most solid foods because they make her nauseous. She describes her diet as consisting of dry toast, coffee, jell-o, and chicken soup. She says she had 1 episode of acute onset chest pain on 11/24 that she described as dull and spasm- like. When asked to point to the location of the pain she indicated an area in her upper-left abdominal quadrant. She also stated that she has a productive cough which produces both yellow and clear sputum. She is no longer complaining of abdominal pain or left arm weakness. ROS: Constitutional: Negative for fever, chills, weight loss Pulmonary: Positive for SOB on exacerbation, and productive cough Cardiovascular: Negative for chest pain, palpitations. GI: Positive for slight nausea after eating solid foods. Denies abdominal pain, vomiting, diarrhea or constipation MSK: Denies new onset muscle weakness Neurological: Denies paresthesia or muscle weakness Most Current Vitals: BP: 125/66 HR: 85 RR: 18 O2: 95 on Room air Temp: 96.1 Physical exam: Pt is a pleasant, obese female who is cooperative to exam Pulmonary: Positive for crackles and in her left lower lobe. Chest tube at left nipple line mid-axillary line, attached to pleurovac. Cardiovascular: Regular rhythm, no murmurs, knocks, rubs noted GI: Several cm diameter ecchymosis noted on her upper left abdominal quadrant with slight tenderness to deep palpation. Negative for organomegaly. Normal bowel sounds in all 4 quadrants Extremities: B/L non-pitting edema noted in her LEs. No pain or palpation or asymmetrical calves noted Psych: Well-mannered and cooperative to exam. Alert and aware X3 Labs: Corrected calcium 11/28/2018: 10.18 Assessment and plan: #Left malignant pleural effusion: Continue to monitor for dyspnea and pleural fluid accumulation. FNA of her suspected liver liver mets was performed on 11/24 and we await the results to determine the primary tumor site. Ms. Harrington continues to drain several hundred mLs of fluid a day from her chest tube. #Lung entrapment: An air leak was noted on 11/25 with lung entrapment. tPA pleurolysis was performed on 11/26 without resolution of the entrapment. Cardiothoracic surgery is not sure if the air is coming from the parenchyma or the chest tube insertion site itself. # Nausea after eating: Continue treating with PRN Zofran 4 mg #Diabetes: Continue to manage with Insulin Detemir and Lispro. Blood sugar has been stable since admission in the low 100s. #HTN: Continue treatment with Lisinopril 10 mg #GERD: Continue with Protonix 40 mg. Pt denies blood in stool or hematochezia. Stool occult blood was negative #VTE prophylaxis: Patient receiving 5000 units Heparin Q12H Disposition: D/C upon stabilization of pts pleural fluid output and dyspnea. F/U with oncology regarding probably GI malignancy. VS,Fishbone, I+O VS, Fishbone, I+O Laboratory Tests 11/28/18 05:35 Red Blood Count 3.80 L, Mean Corpuscular Volume 89.7, Mean Corpuscular Hemoglobin 27.6, Mean Corpuscular Hemoglobin Concent 30.8 L, Red Cell Distribution Width 15.6 H, Neutrophils (%) (Auto) 61.0, Lymphocytes (%) (Auto) 26.4, Monocytes (%) (Auto) 8.4 H, Eosinophils (%) (Auto) 3.2 H, Basophils (%) (Auto) 0.5, Neutrophils # (Auto) 5.7, Lymphocytes # (Auto) 2.5, Monocytes # (Auto) 0.8, Eosinophils # (Auto) 0.3, Basophils # (Auto) 0.1, Calcium Level 8.9, Aspartate Amino Transf (AST/SGOT) 19, Alanine Aminotransferase (ALT/SGPT) 26, Alkaline Phosphatase 122 H, Total Bilirubin 0.4, Total Protein 6.7, Albumin 2.4 L Vital Signs Date Time Temp Pulse Resp B/P (MAP) Pulse Ox O2 Delivery O2 Flow Rate FiO2 11/28/18 08:42 125/66 11/28/18 08:00 96.9 101 17 94 11/24/18 08:10 Room Air 11/22/18 17:47 4.0 I&O- Last 24 Hours up to 6 AM 11/28/18 05:59 Intake Total 440 ml Output Total 670 ml Balance -230 ml KEERTHI WOLF OMS-3 Nov 28, 2018 09:26
--- NOTE | 2018-11-28 11:04 | IPN ---
DATE: 11/28/2018 Ms. Harrington is breathing very comfortably. There is no subcutaneous emphysema and her chest x-ray shows no change in the air space. Chest tube has been clamped for 24 hours. Her vital signs show a maximum temperature (Tmax) of 97.0 with a heart rate that ranges between 95 and 101 in a sinus rhythm, respiratory rate of 18 to 20 without the use of accessory muscles who is 95% saturated on room air and whose blood pressure is ranging between 123/62 to 127/76. Her intake and output for the past 24 hours has been recorded as 440 in and 670 out for a negativity of 320 mL. Her chest tube has been clamped. Prior to that she put out 45 mL. Weight today is 88.7 kg compared to 88.6 kg yesterday. PHYSICAL EXAMINATION: LUNGS: She has marginally decreased breath sounds on the left side with a full percussion note to the diaphragm on the left side. I hear no wheezes, rhonchi or rales. Her right lung shows normal vesicular sounds. CARDIAC EXAM: Without murmurs, clicks, gallops or rubs. I cannot feel her point of maximum impulse (PMI). S1, S2 are normal. ABDOMEN: Soft, nontender. Bowel sounds positive. There is no hepatomegaly. No costovertebral angle tenderness. EXTREMITIES: Show no pretibial edema. No calf tenderness. No differential swelling of the upper extremities. SKIN: Warm, dry and perfused without cyanosis or mottling, including that of the nail beds and knees. NECK: Supple. There is no jugular venous distention. No subcutaneous emphysema. Trachea is midline. MOUTH: Shows her mucous membranes to be pink and moist. Lips and commissures without lesions. There is no thrush. EYES: Show her pupils to be equal and reactive. Extraocular motion intact. Sclerae anicteric. NEUROLOGIC: Shows II through XII intact with gross motor and gross sensation intact. Gait is not tested. PSYCHIATRIC: Shows her to be awake and alert, oriented times three with appropriate mood and affect and conversational. Her white count today is 9.3 with hemoglobin and hematocrit of 10.4 and 34.1, respectively, unchanged from yesterday, with a platelet count of 222 and stable. Differential shows 61% neutrophils, 26 lymphocytes, 8% monocytes. There are no immature forms. No toxic granulations. Her chemistries show normal electrolytes with a BUN and creatinine of 13 and 0.67, glucose 143, calcium of 8.9 with a corresponding albumin of 2.4. This still makes her marginally hyperglycemic corrected. I have gone over the pathology slides of her liver biopsy with Dr. Noonan of pathology. She has mucinous adenocarcinoma. It is unclear what the origin is but his suspicion is that it is gastrointestinal and it is probably coming from the pancreas. We are awaiting special markers and stains. The slides were sent off to [facility]. Chest x-ray today shows the continued air space with fluid starting to fill it up on the left posterolateral inferior portion of the chest. There is no subcutaneous emphysema and there is no mediastinal shift. IMPRESSION: 1. 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 2. Left-sided malignant pleural effusion. 3. Lung entrapment. 4. Tobacco abuse. 5. Diabetes. 6. Hypertension. 7. Hypercalcemia. PLAN AND DISCUSSION: I will remove her chest tube today. The markers are not back. I am informed by the medical staff that she wishes to have her family present and therefore I have not gone over the preliminary pathology with her. The fluid is going to refill the air space. The question is when it returns will it compress the remainder of the lung to make her symptomatic? Right now, she is at her baseline and as long as the fluid merely fills the air space and does not get into the rest of the lung, she should remain ventilatory stable. If it does recur, we will have to consider placing a PleurX catheter.
--- NOTE | 2018-11-28 11:20 | RO ---
DATE OF PROCEDURE: 11/26/2018 PREPROCEDURE DIAGNOSIS: Lung entrapment, pleural effusion. POSTPROCEDURE DIAGNOSIS: Lung entrapment, pleural effusion. PROCEDURE: TPA pleurolysis. SURGEON: Kentrell Torres MD EDUCATIONAL PSYCHOLOGY PROFESSOR: ANESTHESIA: DESCRIPTION OF PROCEDURE: The patient's chest tube was prepped and draped in the usual sterile fashion after disconnecting from the Pleur-evac and clamping it. 50 mL of normal saline with 6 mg of tissue plasminogen activator (TPA) was then instilled into the chest. The patient was turned from side to side to distribute the TPA. The chest tube will be unclamped in 4 hours. The patient tolerated the procedure well.
[2018-11-28 12:00] VITALS: BP 128/78
[2018-11-28 16:00] VITALS: BP 133/74
[2018-11-28 20:00] VITALS: BP 133/69
[2018-11-28] MEDS: MAALOX 30 ML SUSP *UDC PO PRN (21:01)
[2018-11-28] MEDS: PERCOCET 5MG/325MG TAB PO PRN (22:22)
[2018-11-29] VITALS: BP 119/60
[2018-11-29] MEDS: LEVALBUTEROL 1.25 MG/0.5 ML CONCENTRATE NEB NEB SCH ×2 (02:00→08:39)
[2018-11-29 04:00] VITALS: BP 111/65
[2018-11-29] MEDS: SLF 3 ML SYR IV SCH ×2 (06:02→14:00)
[2018-11-29 06:11] LABS: HEMATOCRIT 34.3 % (36.0-47.0); HEMOGLOBIN 10.9 g/dl (12.0-15.5); MEAN CORPUSCULAR HEMOGLOBIN 27.7 pg (27.0-33.0); MEAN CORPUSCULAR HGB CONC 31.8 g/dl (32.0-36.5); MEAN CORPUSCULAR VOLUME 87.1 fl (80.0-96.0); PLATELET COUNT, AUTOMATED 301 10^3/uL (150-450); RED BLOOD COUNT 3.94 10^6/uL (4.00-5.40); WHITE BLOOD COUNT 8.8 10^3/uL (4.0-10.0)
[2018-11-29 06:40] LABS: ALBUMIN 2.5 GM/DL (3.2-5.2); ALT/SGPT 25 U/L (12-78); BILIRUBIN,TOTAL 0.5 MG/DL (0.2-1.0); BLOOD UREA NITROGEN 9 MG/DL (7-18); CALCIUM LEVEL 9.3 MG/DL (8.5-10.1); CARBON DIOXIDE LEVEL 26 MEQ/L (21-32); CHLORIDE LEVEL 100 MEQ/L (98-107); CREATININE FOR GFR 0.68 MG/DL (0.55-1.30); GLOMERULAR FILTRATION RATE > 60.0 (>51); GLUCOSE, FASTING 141 MG/DL (70-100); SODIUM LEVEL 135 MEQ/L (136-145); TOTAL PROTEIN 7.2 GM/DL (6.4-8.2)
[2018-11-29 08:00] VITALS: BP 118/60
--- NOTE | 2018-11-29 08:08 | REP ---
PA and lateral chest: Comparison is 11/28/2018. The left thoracotomy tube has been removed. The loculated left hydropneumothorax is unchanged. The remainder the lung louis are clear and unchanged. Cardiac size is normal. Impression: The left thoracotomy tube has been removed. No other interval change. Electronically Signed by Freddie Kelly MD 11/29/2018 07:59 A
[2018-11-29] MEDS: HumaLOG INSULIN (NovoLOG) PER UNIT SC SCH ×2 (08:20→12:12)
[2018-11-29 08:21] VITALS: BP 118/88
[2018-11-29] MEDS: MOM 30ML SUSPENSION UDC PO SCH (08:21)
[2018-11-29] MEDS: MULTIVITAMINS/MINERALS THERAP 1 TAB PO SCH (08:21)
[2018-11-29] MEDS: DOCUSATE SODIUM 100 MG CAP PO SCH (08:21)
[2018-11-29] MEDS: LISINOPRIL 10 MG TAB PO SCH (08:21)
[2018-11-29] MEDS: PANTOPRAZOLE 40MG TAB (PROTONIX) PO SCH (08:21)
[2018-11-29] MEDS: HEPARIN SOD (PORCINE) 5000 UNITS/ML VIAL SC SCH (08:22)
[2018-11-29] MEDS: LEVEMIR (INSULIN DETEMIR) 1 UNITS/0.01ML SC SCH (08:22)
[2018-11-29] MEDS: NORCO, ANEXSIA 5/325MG TABLET (HYDROcodone/ACETAMINOPHEN) PO PRN (09:51)
[2018-11-29 12:00] VITALS: BP 126/84
[2018-11-29] MEDS ORDERED: ASSU1MIS54 TOP (12:15)
[2018-11-29] MEDS ORDERED: ALBU83IN NEB (12:15)
[2018-11-29] MEDS ORDERED: ONDA4TAB5 PO (12:15)
[2018-11-29] MEDS ORDERED: AERO1MIS2 XX (12:15)
--- NOTE | 2018-11-29 12:25 | DS.PDOC ---
Discharge Summary General Date of Admission Nov 22, 2018 at 14:34 Date of Discharge 11/29/18 Discharge Summary Final diagnosis Pancreatic mass Malignant pleural effusion Abdominal pain Nausea and vomiting History of present illness and Hospital course This is a 58-year-old female who presented to the hospital because of shortness of breath and nausea and was found to have a large pleural effusion and p ancreatic head mass with numerous liver metastasis. 2) positive for malignancy, but unclear etiology. She also had a liver biopsy as well as chest tube placement for pleural effusion. Chest tube was removed on 11/28/18. The patient has been clinically improving and wants to know her results while she is out patient. The patient will follow up with oncology as well as PCP as an outpatient. The patient wants to know about the biopsy results. After going home and does not want to stay in the hospital right now. The patient was put on Levemir and lispro while inpatient, but will be continued on her home oral hypoglycemic medications. She will also be given Zofran when necessary. Physical exam: Pt is a pleasant, obese female who is cooperative to exam Pulmonary: Clear auscultation bilaterally Cardiovascular: Regular rhythm, no murmurs, knocks, rubs noted GI: Several cm diameter ecchymosis noted on her upper left abdominal quadrant with slight tenderness to deep palpation. Negative for organomegaly. Normal bowel sounds in all 4 quadrants Extremities: B/L non-pitting edema noted in her LEs. No pain or palpation or asymmetrical calves noted Psych: Well-mannered and cooperative to exam. Alert and aware X3 Medications. As per discharge reconciliation medication list Activity as tolerated Diet. 2 g sodium diet Follow-up appointments. PCP in 1 week, oncology in 1 week. Condition on discharge. Patient is medically optimized for discharge Discharge disposition: Home Total time spent on this discharge including coordination of care, review of chart documentation and extubation contact is around 35 minutes Vital Signs/I&Os Vital Signs Date Time Temp Pulse Resp B/P (MAP) Pulse Ox O2 Delivery O2 Flow Rate FiO2 11/29/18 09:51 20 11/29/18 08:21 118/88 11/29/18 08:00 97.4 94 99 11/24/18 08:10 Room Air I&O- Last 24 Hours up to 6 AM 11/29/18 06:00 Intake Total 950 ml Output Total 2275 ml Balance -1325 ml Laboratory Data Labs 24H Laboratory Tests 2 11/28/18 17:03: Bedside Glucose (Misc Panel) 129H 11/28/18 20:32: Bedside Glucose (Misc Panel) 138H 11/29/18 05:32: Nucleated Red Blood Cells % (auto) 0.0, Anion Gap 9, Glomerular Filtration Rate > 60.0, Blood Urea Nitrogen 9, Creatinine 0.68, Sodium Level 135L, Potassium Level 4.0, Chloride Level 100, Carbon Dioxide Level 26, Calcium Level 9.3, Aspartate Amino Transf (AST/SGOT) 18, Alanine Aminotransferase (ALT/SGPT) 25, Alkaline Phosphatase 122H, Total Bilirubin 0.5, Total Protein 7.2, Albumin 2.5L, Albumin/Globulin Ratio 0.53L 11/29/18 11:56: Bedside Glucose (Misc Panel) 245H CBC/BMP Laboratory Tests 11/29/18 05:32 Red Blood Count 3.94 L, Mean Corpuscular Volume 87.1, Mean Corpuscular Hemoglobin 27.7, Mean Corpuscular Hemoglobin Concent 31.8 L, Red Cell Distributi on Width 15.3 H, Calcium Level 9.3, Aspartate Amino Transf (AST/SGOT) 18, Alanine Aminotransferase (ALT/SGPT) 25, Alkaline Phosphatase 122 H, Total Bilirubin 0.5, Total Protein 7.2, Albumin 2.5 L FSBS Laboratory Tests Test 11/28/18 17:03 11/28/18 20:32 11/29/18 11:56 Range/Units Bedside Glucose (Misc Panel) 129 138 245 70-105 MG/DL Microbiology Microbiology 11/22/18 Acid Fast Stain, Received Pending 11/22/18 Mycobacterial Culture, Received Pending 11/22/18 Fungal Smear, Received Pending 11/22/18 Fungal Culture, Received Pending 11/22/18 Gram Stain - Final, Complete 11/22/18 Body Fluid Culture - Final, Complete 11/22/18 Anaerobic Culture - Final, Complete 11/24/18 Stool Occult Blood (MONICA) - Final, Complete Discharge Medications Scheduled Glipizide (Glipizide) 5 Mg Tablet, 5 MG PO BID, (Reported) Lisinopril (Lisinopril) 10 Mg Tablet, 10 MG PO DAILY, (Reported) Metformin HCl (Metformin HCl ER) 500 Mg Tab.er.24h, 250 MG PO BID, (Reported) Scheduled PRN Albuterol Sulf (Albuterol Sulfate) 2.5 Mg/3 Ml Vial.neb, 1 VIAL NEB Q4HP PRN for wheezing Cyclobenzaprine HCl (Cyclobenzaprine HCl) 10 Mg Tablet, 10 MG PO TID PRN for MUSCLE SPASMS, (Reported) Ondansetron HCl (Ondansetron HCl) 4 Mg Tablet, 4 MG PO Q4HP PRN for NAUSEA OR VOMITING Allergies Coded Allergies: No Known Allergies (Unverified , 03/21/15) ARNULFO SPARKS MD Nov 29, 2018 12:25
== END 2018-11-29 15:27 | disposition home or self-care (01) | DRG 281 ==
LOC: EDBD 10:42 → M ED 10:42 → M ED INP 14:34 → M PCU 15:12
PROVIDERS: ADMIT Thoracic Surgery (Cardiothoracic Vascular Surgery); ATTEND Internal Medicine
PROC: 0W9B00Z Drainage of Left Pleural Cavity with Drainage Device, Open Approach (ICD-10-PCS; principal; 2018-11-22)
PROC: 0FD13ZX Extraction of Right Lobe Liver, Percutaneous Approach, Diagnostic (ICD-10-PCS; 2018-11-24)
PROC: 3E0L3GC Introduction of Other Therapeutic Substance into Pleural Cavity, Percutaneous Approach (ICD-10-PCS; 2018-11-26)
DX: C25.0 Malignant neoplasm of head of pancreas (principal); J91.0 Malignant pleural effusion; C78.6 Secondary malignant neoplasm of retroperitoneum and peritoneum; C78.7 Secondary malignant neoplasm of liver and intrahepatic bile duct; J93.82 Other air leak; K21.9 Gastro-esophageal reflux disease without esophagitis; I10 Essential (primary) hypertension; E83.52 Hypercalcemia; E11.9 Type 2 diabetes mellitus without complications; Z90.49 Acquired absence of other specified parts of digestive tract; F17.210 Nicotine dependence, cigarettes, uncomplicated; Z79.899 Other long term (current) drug therapy; Z79.84 Long term (current) use of oral hypoglycemic drugs; Z79.82 Long term (current) use of aspirin

== ENCOUNTER 2018-12-02 16:12 | Inpatient (IN) | payer OTHER ==
[~2018-12-02] VITALS: Ht 157.5 cm; Wt 83.5 kg
[~2018-12-02 16:12] MED LIST changes: +AERO1MIS2 XX; +ALBU83IN NEB; +ASSU1MIS54 TOP; +CYCL10TA PO; +GLIP2.5T6 PO; +GLIP5TAB8 PO; +LISI10TA4 PO; +METF-791 PO; +METF500T13 PO; +ONDA4TAB5 PO; +ceFAZolin SOD 2 GM in IV 1 EA IV ONE; -glipiZIDE (GLUCOTROL) 5 MG TAB PO SCH
[2018-12-02 16:45] LABS: BASO # 0.1 10^3/uL (0.0-0.2); BASO % 0.6 % (0.0-1.0); EOS # 0.4 10^3/uL (0.0-0.5); EOS % 3.1 % (0.0-3.0); HEMATOCRIT 39.4 % (36.0-47.0); HEMOGLOBIN 12.8 g/dl (12.0-15.5); LYMPH # 3.3 10^3/uL (1.5-5.0); LYMPH % 22.6 % (24.0-44.0); MEAN CORPUSCULAR HEMOGLOBIN 28.2 pg (27.0-33.0); MEAN CORPUSCULAR HGB CONC 32.5 g/dl (32.0-36.5); MEAN CORPUSCULAR VOLUME 86.8 fl (80.0-96.0); MONO # 1.2 10^3/uL (0.0-0.8); NEUTROPHILS # 9.3 10^3/uL (1.5-8.5); NEUTROPHILS % 64.7 % (36.0-66.0); PLATELET COUNT, AUTOMATED 403 10^3/uL (150-450); RED BLOOD COUNT 4.54 10^6/uL (4.00-5.40); WHITE BLOOD COUNT 14.4 10^3/uL (4.0-10.0)
[2018-12-02 17:15] LABS: BLOOD UREA NITROGEN 22 MG/DL (7-18); CALCIUM LEVEL 10.2 MG/DL (8.5-10.1); CARBON DIOXIDE LEVEL 24 MEQ/L (21-32); CHLORIDE LEVEL 100 MEQ/L (98-107); CK-MB VALUE MASS < 1.0 NG/ML (<3.6); CPK CREATINE PHOSPHOKINASE 36 U/L (26-192); CREATININE FOR GFR 0.92 MG/DL (0.55-1.30); GLOMERULAR FILTRATION RATE > 60.0 (>51); GLUCOSE, FASTING 200 MG/DL (70-100); MB/CK RELATIVE INDEX 2.78 (< OR =4); NT-PRO BNP 105 PG/ML (<125); POTASSIUM SERUM 4.2 MEQ/L (3.5-5.1); SODIUM LEVEL 134 MEQ/L (136-145); TROPONIN I < 0.02 NG/ML (< 0.10)
--- NOTE | 2018-12-02 18:05 | REP ---
TWO-VIEW CHEST: 12/02/2018. Comparison: 11/29/2018, 11/28/2018, CT chest 11/26/2018. Clinical history: Dyspnea. The known loculated hydropneumothorax posteriorly in the left lower lung zone is again evident. The air-fluid level has increased in size since the most recent prior. The loculated air collection does not appear to have changed in size on the lateral view. There is subsegmental atelectatic change in the lower lung zones and no effusion on the right. There is no apical pneumothorax. Heart size, mediastinal and hilar contours unchanged. The aorta and airway unchanged. Bony thorax, unchanged. Impression: 1. A loculated hydropneumothorax posteriorly in the left lower lung zone without apical pneumothorax. This is unchanged in size of the extrapleural air cavity but the air-fluid level is higher than on the prior study of 11/29/2018.2. Some subsegmental atelectasis in the left lower lung zone and minimally at the right base. No right effusion. No apical pneumothorax. No other change. Electronically Signed by Lawrence Cedillo MD 12/02/2018 08:24 P
[2018-12-02] MEDS ORDERED: METF-791 PO (18:36)
[2018-12-02] MEDS ORDERED: TRIA1CR80 TOP (18:36)
[2018-12-02] MEDS ORDERED: ONDA-195 PO (18:36)
[2018-12-02] MEDS ORDERED: GLIP5TAB8 PO (18:36)
[2018-12-02] MEDS ORDERED: ALB2.5NEB INH (18:36)
[2018-12-02] MEDS ORDERED: MULTCAP PO (18:39)
[2018-12-02] MEDS ORDERED: BACK500T PO (18:39)
[2018-12-02] MEDS ORDERED: LANTINJ4 SC (18:40)
[2018-12-02] MEDS ORDERED: NORCO, ANEXSIA 5/325MG TABLET (HYDROcodone/ACETAMINOPHEN) PO PRN (18:45)
[2018-12-02] MEDS ORDERED: ONDANSETRON 4MG/2ML VIAL (J2405) IV PRN (18:45)
[2018-12-02] MEDS ORDERED: BISACODYL 10 MG SUPP PR PRN (18:45)
[2018-12-02] MEDS ORDERED: ACETAMINOPHEN TAB 650MG DOSE (2X325MG) PO PRN (18:45)
[2018-12-02] MEDS ORDERED: PERCOCET 5MG/325MG TAB PO PRN (18:45)
[2018-12-02] MEDS ORDERED: LEVALBUTEROL 1.25 MG/0.5 ML CONCENTRATE NEB NEB PRN (18:45)
--- NOTE | 2018-12-02 18:47 | REPVR ---
PROCEDURE INFORMATION: Exam: CT Chest Without Contrast Exam date and time: 12/02/2018 5:59 PM Clinical history: 58 years old, female; Shortness of breath; Additional info: SOB eval pleural effusion TECHNIQUE: Imaging protocol: Computed tomography of the chest without contrast. 3D rendering: MIP reconstructed images were created and reviewed. Radiation optimization: All CT scans at this facility use at least one of these dose optimization techniques: automated exposure control; mA and/or kV adjustment per patient size (includes targeted exams where dose is matched to clinical indication); or iterative reconstruction. COMPARISON: CT Chest without contrast 11/26/2018 7:01 AM FINDINGS: Limitations: Lack of intravenous contrast material limits evaluation of the vascular and visceral structures. Lungs: Consolidation in the dependent left lower lobe and lingula. Minimal tree in bud opacities in the right upper lobe, suggestive of small airways disease, similar to prior exam. Improved aeration of the right lung base. Minimal tree in bud opacities in the right lower lobe. Pleural space: Diffuse smooth left pleural thickening, unchanged. Heart: Unremarkable. No cardiomegaly. No pericardial effusion. Aorta: Mild atherosclerotic calcification of the thoracic aorta. Lymph nodes: Redemonstration of enlarged peripancreatic and periportal lymph nodes, measuring up to approximately 14 mm in short axis dimension. Liver: Redemonstration of subtle hypodense hepatic lesions, measuring up to approximately 2.7 cm x 2.4 cm, within the right hepatic lobe. Gallbladder and bile ducts: Cholelithiasis. Spleen: Small perisplenic varices. Intraperitoneal space: Moderate to large left-sided empyema, containing gas and fluid. This appears slightly increased in size since the prior CT. Interval removal of the left-sided chest tube. Bones/joints: Mild degenerative change of the spine. Soft tissues: Unremarkable. IMPRESSION: 1. Left-sided empyema is slightly increased in size following chest tube removal. 2. Persistent consolidation in the dependent left lower lobe and lingula and persistent diffuse smooth left pleural thickening. 3. Minimal small airways disease in the right lung. 4. Redemonstration of periportal and peripancreatic lymphadenopathy. 5. Redemonstration of indeterminate hepatic lesions, worrisome for metastases. Electronically signed by: Joanna Ignacio On 12/02/2018 18:47:19 PM
[2018-12-02 18:49] LABS: INR 1.15; PROTHROMBIN TIME 14.4 SECONDS (11.8-14.0)
[2018-12-02 18:49] LABS: ALBUMIN 3.3 GM/DL (3.2-5.2); BILIRUBIN,DIRECT 0.1 MG/DL (0.0-0.2); BILIRUBIN,TOTAL 0.3 MG/DL (0.2-1.0); TOTAL PROTEIN 8.6 GM/DL (6.4-8.2)
--- NOTE | 2018-12-02 19:34 | HPEPDOC ---
[facility] Medical History & Physical Date of Admission Dec 02, 2018 Date of Service: Dec 02, 2018 Primary Care Physician: A Other Provider Leon Jha MD Attending Physician: LIEN HARRISON MD History and Physical TIME OF SERVICE: 9:40 p.m. CHIEF COMPLAINT: Sent by PCP HISTORY OF PRESENT ILLNESS: This is a 58-year-old female who was initially diagnosed with metastatic pancreatic adenocarcinoma. Recently she had been feeling more short of breath and saw her primary care provider who ordered a chest x-ray. Today her PCP called her and instructed her to come to [place] for drainage of the pleural effusion. The patient saw Dr. Torres earlier on today, who will place a Pleurx cath in the morning. She learned that her effusion was malignant today and has not followed up with an oncologist. She has lost weight, but denies having fevers, denies having chills, and denies having chest pain. REVIEW OF SYSTEMS: 12 point review of systems negative except as listed in HPI PAST MEDICAL/ SURGICAL HISTORY: Recently diagnosed Metastatic pancreatic adenocarcinoma Diabetes hx of hypertension GERD History of Small bowel obstruction Status post appendectomy. Status post SOCIAL HISTORY: Smokes daily for the last 30 years. Reports she quit about a week and half ago Uses marijuana FAMILY HISTORY: Hypertension Uterine cancer. Alcoholism. Coronary artery disease ALLERGIES: Please see below. HOME MEDICATIONS: Please see below. PHYSICAL EXAMINATION: VITAL SIGNS: Please see below. GENERAL APPEARANCE: Slim built, well-developed, not in apparent distress HEENT: Normocephalic, atraumatic, mucous membranes moist and pink CARDIOVASCULAR: Rate and rhythm. No murmurs, rubs or gallops LUNGS: Equal air entry bilaterally, lips are acyanotic. She's not using accessory muscles there are decreased breath sounds on the left MUSCULOSKELETAL: Range of motion intact in all 4 extremities NEUROLOGICAL: Numerous 2-12 intact. Speech is not dysarthric PSYCHIATRIC: Alert and oriented to person, place and time, able to understand and follow commands LABORATORY DATA: See below. IMAGING: Chest x-ray "Impression: 1. A loculated hydropneumothorax posteriorly in the left lower lung zone without apical pneumothorax. This is unchanged in size of the extrapleural air cavity but the air-fluid level is higher than on the prior study of 11/29/2018. 2. Some subsegmental atelectasis in the left lower lung zone and minimally at the right base. No right effusion. No apical pneumothorax. No other change. CT chest "IMPRESSION: 1. Left-sided empyema is slightly increased in size following chest tube removal. 2. Persistent consolidation in the dependent left lower lobe and lingula and persistent diffuse smooth left pleural thickening. 3. Minimal small airways disease in the right lung. 4. Remonstration of periportal and peripancreatic lymphadenopathy. 5. Remonstration of indeterminate hepatic lesions, worrisome for metastases. " MICROBIOLOGY: Please see below. ASSESSMENT: Ms. Harrington is a 58-year-old female with a medical history of newly diagnosed pancreatic cancer with malignant pleural effusion, hx of hypertension, diabetes, and GERD who is admitted for management of a malignant left-sided hydropneumothorax. PLAN: 1. Left-sided hydropneumothorax. Is likely malignant in nature. She does have tachycardia and leukocytosis. Plan: Admit to PCU/ cefazoline has been ordered/ nothing by mouth after midnight for Pleurx catheter placement in the morning/follow-up Dr. Torres (CT surgery) / the patient is discharged tomorrow, daytime team can refer the patient to oncology and palliative care. An outpatient basis 2.Wkp-fcteupy-rwlmbmurb Diabetes A1C 9% on Nov 24 Plan: f/u accuchecks / hypoglycemia protocol / sliding scale insulin / hold oral anti-glycemics /start detemir 10 units tomorrow morning after procedure 3.hx of HTN Plan:monitor vitals DVT prophylaxis with SCDs Disposition pending clinical course Vital Signs Vital Signs Date Time Temp Pulse Resp B/P (MAP) Pulse Ox O2 Delivery O2 Flow Rate FiO2 12/02/18 19:00 123/61 (81) 12/02/18 18:57 106 96 12/02/18 16:13 97.6 20 Room Air Laboratory Data Labs 24H Laboratory Tests 2 12/02/18 16:35: Immature Granulocyte % (Auto) 1.0, White Blood Count 14.4H, Red Blood Count 4.54, Hemoglobin 12.8, Hematocrit 39.4, Mean Corpuscular Volume 86.8, Mean Corpuscular Hemoglobin 28.2, Mean Corpuscular Hemoglobin Concent 32.5, Red Cell Distribution Width 15.5H, Platelet Count 403, Neutrophils (%) (Auto) 64.7, Lymphocytes (%) (Auto) 22.6L, Monocytes (%) (Auto) 8.0H, Eosinophils (%) (Auto) 3.1H, Basophils (%) (Auto) 0.6, Neutrophils # (Auto) 9.3H, Lymphocytes # (Auto) 3.3, Monocytes # (Auto) 1.2H, Eosinophils # (Auto) 0.4, Basophils # (Auto) 0.1, Nucleated Red Blood Cells % (auto) 0.0, Prothrombin Time 14.4H, Prothromb Time International Ratio 1.15, Activated Partial Thromboplast Time 29.0, Anion Gap 10, Glomerular Filtration Rate > 60.0, Blood Urea Nitrogen 22H, Creatinine 0.92, Sodium Level 134L, Potassium Level 4.2, Chloride Level 100, Carbon Dioxide Level 24, Calcium Level 10.2H, Total Creatine Kinase 36, Creatine Kinase MB < 1.0, Creatine Kinase MB Relative Index 2.78, Troponin I < 0.02, WA-Jdq-D-Type Natriuretic Peptide 105, Thyroid Stimulating Hormone (TSH) 1.610 12/02/18 18:33: Aspartate Amino Transf (AST/SGOT) 22, Alanine Aminotransferase (ALT/SGPT) 32, Alkaline Phosphatase 161H, Total Bilirubin 0.3, Direct Bilirubin 0.1, Total Protein 8.6H, Albumin 3.3, Albumin/Globulin Ratio 0.62L CBC/BMP Laboratory Tests 12/02/18 16:35 Red Blood Count 4.54, Mean Corpuscular Volume 86.8, Mean Corpuscular Hemoglobin 28.2, Mean Corpuscular Hemoglobin Concent 32.5, Red Cell Distribution Width 15.5 H, Neutrophils (%) (Auto) 64.7, Lymphocytes (%) (Auto) 22.6 L, Monocytes (%) (Auto) 8.0 H, Eosinophils (%) (Auto) 3.1 H, Basophils (%) (Auto) 0.6, Neutrophils # (Auto) 9.3 H, Lymphocytes # (Auto) 3.3, Monocytes # (Auto) 1.2 H, Eosinophils # (Auto) 0.4, Basophils # (Auto) 0.1, Calcium Level 10.2 H, Total Creatine Kinase 36 Home Medications Scheduled Glipizide (Glipizide) 5 Mg Tablet, 5 MG PO DAILY PATIENT STATES THAT SHE DECIDED TODAY THAT SHE DOES NOT WANT TO TAKE THIS ANYMORE. Insulin Glargine,Hum.rec.anlog (Lantus Solostar) 100 Unit/1 Ml Insuln.pen, 10 UNITS SC DAILY Metformin HCl (Metformin HCl ER) 500 Mg Tab.er.24h, 500 MG PO BID PATIENT STATES THAT STARTING TODAY SHE DOES NOT WANT TO TAKE THIS ANYMORE. Multivitamin (Multivitamins) 1 Each Capsule, 1 CAP PO DAILY Triamcinolone Acet (Triamcinolone Acetonide 0.1% Crm) 80 Gm Cream..g., 1 APLCT TOP BID PATIENT IS SUPPOSED TO APPLY TO BACK. STILL READY AT PHARMACY. Scheduled PRN Acetaminophen (Acetaminophen) 325 Mg Tablet, 650 MG PO Q6HP PRN for T > 101.5 or PEDRO Albuterol Sulfate (Albuterol Sulfate) 2.5 Mg/0.5 Ml Vial.neb, 1 VIAL INH Q4H PRN for WHEEZING Aspirin/Caffeine (Back-Body Pain 500-32.5MG Cplt) 1 Each Tablet, 3 TAB PO DAILY PRN for PAIN Cyclobenzaprine HCl (Cyclobenzaprine HCl) 10 Mg Tablet, 10 MG PO TID PRN for MUSCLE SPASMS THIS IS STILL AT KINNEYS PATIENT HAS NOT TAKEN YET Ondansetron HCl (Ondansetron HCl) 4 Mg Tablet, 4 MG PO Q4H PRN for NAUSEA OR VOMITING Allergies Coded Allergies: No Known Allergies (Unverified , 03/21/15) A-FIB/CHADSVASC A-FIB History Current/History of A-Fib/PAF?: No Current PO Anticoag Therapy: No LIEN HARRISON MD Dec 02, 2018 19:34
--- NOTE | 2018-12-02 20:08 | CR ---
DATE OF CONSULTATION: 12/02/2018 The patient is seen at the request of the emergency room, Dr. Byrd, and of the hospitalist service for increasing shortness of breath with a recurrent pleural effusion. HISTORY OF THE PRESENT ILLNESS: The patient is a 58-year-old white female who was admitted to the hospital on November 22, 2018, who was complaining at that time of shortness of breath and vague chest discomfort. She had a prior cough with green sputum production, with sometimes brown flecks. She had been getting progressively short of breath, and she was found to have a pleural effusion. The pleural effusion was drained and was found to be malignant. There was not enough tissue on the cell block to make a definitive diagnosis, so she, therefore, underwent a liver biopsy as she had multiple liver lesions and peritoneal lesions along with a mass on the head of the pancreas. The pathology of the liver biopsies was consistent with pancreatic adenocarcinoma. Today, she returns to the emergency room after starting to feel more short of breath. It should be noted that she was found to have entrapped lung after the chest tube was clamped and removed. It was expected that the fluid would come back to fill the empty space; however, there was a possibility of it also compressing more lung. She does not complain of pain other than neck pain. She still has her cough with brown ene in her sputum. There has been no fever, chills, or sweats, but her appetite is decreased. She has gastroesophageal reflux disease, and, therefore, sleeps with numerous pillows, but it is not because of shortness of breath. PAST MEDICAL HISTORY: Diabetes and hypertension, and prior gallbladder disease. PAST SURGICAL HISTORY: section and appendectomy. HOME MEDICATIONS: - albuterol 2.5 mg nebs every 4 hours as needed for wheezing - APC (aspirin caffeine) 500-32.5 three tablets by mouth daily - cyclobenzaprine 10 mg three times a day as needed for muscle spasms - glipizide 5 mg daily - Lantus insulin 10 units subcu daily - metformin 500 mg twice a day - multivitamin one daily - ondansetron 4 mg by mouth every 4 hours as needed for nausea - triamcinolone 80-gram cream, applying twice a day to back HABITS: On the average, she smokes about a half pack per day of [place]. In the early years, she may have smoked up to a pack a day for the past 30 years. She drinks [place], sometimes six a day but nothing in the last six months. She smokes marijuana for pain control in her neck, and there is no other illicit drug use. TRAVEL HISTORY: She has been to [place] but not to the [facility], and there has been no foreign travel. 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 EXPOSURES: No dogs, birds, or cats at home. No prior exposure to Tuberculosis. FAMILY HISTORY: Mother of uterine carcinoma. REVIEW OF SYSTEMS: CONSTITUTIONAL: Without fevers, chills, or sweats. She thinks she has lost about 8 pounds in the last month. Her clothes are fitting more loosely. EYES: Without diplopia. She wears glasses. Without amaurosis fugax or prior jaundice. MOUTH: Has her own teeth. PULMONARY: See history of the present illness. CARDIAC: Has palpitations when she takes the garbage out. She considers taking the garbage a long distance. Without prior myocardial infarctions. Without intermittent claudication or peripheral edema. GASTROINTESTINAL (GI): Without recent nausea and vomiting since discharge. No diarrhea, constipation, melena, hematochezia, or hematemesis. She is not complaining of abdominal pain. GENITOURINARY (): Without dysuria, hematuria, or prior renal stones. NEUROLOGIC: Without prior paresthesias, paralyses, or prior seizures. HEMATOLOGIC: Without prolonged bleeding times. PSYCHIATRIC: Without pathological depression, psychosis, or anxieties. She has had depression in the past, which has been untreated. PHYSICAL EXAMINATION: Well-developed, obese white female, in mild distress with shortness of breath. VITAL SIGNS: Temperature is 97.6 with a heart rate of 124, respiratory rate of 20 without the use of accessory muscles who is 96% saturated on room air and whose blood pressure is 122/67. She is in sinus tachycardia. EYES: Pupils equal, round and reactive to light. Extraocular motor intact. Sclerae nonicteric. NOSE: Without deformity. HEAD: Normocephalic. MOUTH: Shows her mucous membranes to be pink and moist. Lips and commissures without lesions. There is no thrush. NECK: Neck is supple. There is no jugular venous distention. No subcutaneous emphysema. Trachea is midline. There is no lymphadenopathy or thyromegaly. She has 2+ carotid upstrokes without bruits. CARDIAC EXAM: Without murmurs, clicks, gallops, or rubs. I cannot feel her point of maximum impulse (PMI). S1, S2 are normal. LUNGS: Show decreased breath sounds in the left lower hemithorax with partial e to a egophony. Percussion note is dull in the left hemithorax. She has normal vesicular sounds on the right. ABDOMEN: Soft, nontender. Bowel sounds are positive. There is no hepatomegaly. No costovertebral angle tenderness. EXTREMITIES: Show no pretibial edema. No calf tenderness. No differential swelling of the upper extremities. SKIN: Warm, dry, and perfused without cyanosis or mottling including that of the nail beds and knees. NEUROLOGIC: Shows II-XII intact along with gross motor and gross sensation intact. Gait is not tested. PSYCHIATRIC: Shows her to be awake and alert, oriented times three with appropriate mood and affect and conversational. Her white count today is 14.4 with a hemoglobin and hematocrit of 12.8 and 39.4 respectively. These are increased from her discharge hemoglobin and hematocrit of 10.9 and 34.3. Platelet count is 403. Differential shows 64% neutrophils, 22% lymphocytes, 8% monocytes. There are no immature forms. No toxic granulations. Her electrolytes show a sodium of 134 with the remainder normal with a BUN and creatinine of 22 and 0.92, a glucose of 200, and a calcium of 10.2. Corresponding albumin is 3.3; therefore, making her corrected calcium hypercalcemic. Her chest x-ray shows an air fluid level on the left side. It is not unexpected as she had an entrapped lung with air, with an empty space in the inferolateral portion of the left lung. The lateral chest x-ray shows the same air fluid level. The air space posteriorly is not completely filled. Chest CT done without contrast today in the emergency room, at my request, shows not only the entrapped lung with a fibrous peel but it is more compressed than it was on discharge when the chest tube had been placed. It looks as though the pleural fluid is pushing nonadherent lung instead of completely filling the already known air space. There is a mass at the head of the pancreas. She has multiple liver lesions. She also has what looks to be omental studding and peritoneal masses. These are seen best anteriorly. IMPRESSION: 1. Malignant pleural effusion, left side. 2. Entrapped lung, left side. 3. Pancreatic adenocarcinoma. 4. Diabetes. 5. Hypertension. 6. Gastroesophageal reflux disease. 7. Underlying lung compression. 8. Probable dehydration. PLAN AND DISCUSSION: She will be admitted tonight, and I will undertake a PleurX catheter in the morning. I will start an IV on her today as her hemoglobin and hematocrit is markedly increased since her discharge last week. I place her PleurX catheter under conscious sedation tomorrow in the progressive care unit (PCU). The hospitalist service will assume primary care.
--- NOTE | 2018-12-02 20:15 | ECGEPIP ---
[facility] - ED Test Date: 2018-12-02 Pat Name: AMINTA PEARSON Department: Room: - Gender: Female Professor Of Counseling: RONDA : 1960 Requested By: JUAREZ Ferreira Order Number: [id number] Reading MD: Elijah Wallace Measurements Intervals [place] Rate: 107 P: 65 [place]: 142 QRS: 47 QRSD: 76 T: 38 QT: 301 QTc: 402 Interpretive Statements SINUS TACHYCARDIA BENIGN EARLY REPOLARIZATION RATE CHANGE COMPARED TO 11/24/18 Electronically Signed on 12-02-2018 20:14:56 EDT by Elijah Wallace
[2018-12-02] MEDS: PERCOCET 5MG/325MG TAB PO PRN ×2 (20:18→21:32)
[2018-12-02 20:40] VITALS: BP 129/73
[2018-12-02] MEDS: KETOROLAC 30 MG/ML VIAL (J1885) IV SCH (21:30)
[2018-12-02] MEDS: HEPARIN SOD (PORCINE) 5000 UNITS/ML VIAL SC SCH (21:31)
[2018-12-02] MEDS: DOCUSATE SODIUM 100 MG CAP PO SCH (21:31)
[2018-12-02] MEDS ORDERED: DEXTROSE 50% 50 ML SYRINGE IV PRN (22:00)
[2018-12-02] MEDS ORDERED: ONDANSETRON 4 MG TAB (S0181) PO PRN (22:00)
[2018-12-02] MEDS ORDERED: CYCLOBENZAPRINE 10 MG TAB PO PRN (22:00)
[2018-12-02] MEDS ORDERED: GLUCAGON FOR INJ 1 MG VIAL (J1610) SC PRN (22:00)
[2018-12-02] MEDS ORDERED: ALBUTEROL SULFATE 2.5 MG/0.5 ML INH NEB SOLN INH PRN (22:00)
[2018-12-02] MEDS ORDERED: GLUCOSE 4 GM CHEW TABLET PO PRN (22:00)
[2018-12-02] MEDS: HumaLOG INSULIN (NovoLOG) PER UNIT SC SCH (22:30)
[2018-12-02] MEDS: KCL 20MEQ IN D5/NS 1000ML 1,000 ML IV SCH (22:30)
[2018-12-02] MEDS: TRIAMCINOLONE ACET 0.1% CREAM 80 GM TOP SCH (23:00)
[2018-12-03] VITALS (34 sets, daily range): BP systolic 89–128; BP diastolic 52–70
[2018-12-03] MEDS: LEVALBUTEROL 1.25 MG/0.5 ML CONCENTRATE NEB NEB SCH ×5 (00:13→20:07)
[2018-12-03] MEDS: PERCOCET 5MG/325MG TAB PO PRN ×3 (01:26→23:33)
[2018-12-03] MEDS: KETOROLAC 30 MG/ML VIAL (J1885) IV SCH ×4 (01:30→20:27)
[2018-12-03 05:51] LABS: BASO % 0.4 % (0.0-1.0); EOS # 0.5 10^3/uL (0.0-0.5); EOS % 4.4 % (0.0-3.0); HEMATOCRIT 34.6 % (36.0-47.0); HEMOGLOBIN 10.9 g/dl (12.0-15.5); LYMPH # 3.2 10^3/uL (1.5-5.0); LYMPH % 29.2 % (24.0-44.0); MEAN CORPUSCULAR HEMOGLOBIN 27.9 pg (27.0-33.0); MEAN CORPUSCULAR HGB CONC 31.5 g/dl (32.0-36.5); MEAN CORPUSCULAR VOLUME 88.5 fl (80.0-96.0); MONO # 1.1 10^3/uL (0.0-0.8); MONO % 10.5 % (0.0-5.0); NEUTROPHILS # 5.9 10^3/uL (1.5-8.5); NEUTROPHILS % 54.6 % (36.0-66.0); PLATELET COUNT, AUTOMATED 350 10^3/uL (150-450); RED BLOOD COUNT 3.91 10^6/uL (4.00-5.40); WHITE BLOOD COUNT 10.8 10^3/uL (4.0-10.0)
[2018-12-03] MEDS ORDERED: ceFAZolin SOD 2 GM in IV 1 EA IV ONE (06:00)
[2018-12-03 06:15] LABS: CALCIUM LEVEL 9.5 MG/DL (8.5-10.1); CREATININE FOR GFR 1.08 MG/DL (0.55-1.30); GLOMERULAR FILTRATION RATE 55.5 (>51); POTASSIUM SERUM 4.1 MEQ/L (3.5-5.1)
[2018-12-03] MEDS: LEVEMIR (INSULIN DETEMIR) 1 UNITS/0.01ML SC SCH (08:52)
[2018-12-03] MEDS: PANTOPRAZOLE 40MG TAB (PROTONIX) PO SCH (08:52)
[2018-12-03] MEDS: DOCUSATE SODIUM 100 MG CAP PO SCH ×3 (08:52→20:26)
[2018-12-03] MEDS: HEPARIN SOD (PORCINE) 5000 UNITS/ML VIAL SC SCH ×2 (08:53→20:28)
[2018-12-03] MEDS: TRIAMCINOLONE ACET 0.1% CREAM 80 GM TOP SCH ×2 (09:00→20:29)
[2018-12-03] MEDS: MOM 30ML SUSPENSION UDC PO SCH ×2 (09:00→14:51)
[2018-12-03] MEDS: HumaLOG INSULIN (NovoLOG) PER UNIT SC SCH ×4 (09:03→21:00)
[2018-12-03] MEDS ORDERED: ceFAZolin 1GM INJ (J0690 PER 500MG) As Ordered ONE (09:31)
--- NOTE | 2018-12-03 09:35 | REP ---
CHEST PA AND LATERAL: 12/03/2018. Comparison: CT 12/02/2018; chest x-ray 12/02/2018, 11/29/2018. Clinical history: Pleural effusion. Findings: Two-view show loculated hydropneumothorax left base posteriorly. The air-fluid level posteriorly in the left lung base is unchanged since last night's chest x-ray with a fluid level is increased since 11/29/18. Curvilinear atelectatic change in the left mid and lower lung zone. The right lung was clear. The cardiac silhouette is partially obscured by the effusion but not grossly enlarged. No vascular redistribution or edema. Calcified aortic arch without aneurysm or other change. Degenerative changes in the AC joints. No compression deformity in the spine. Impression: 1. Loculated hydropneumothorax at the left base with the fluid level increased since 11/29, unchanged since last night's chest x-ray. Electronically Signed by Lawrence Cedillo MD 12/03/2018 07:31 P
[2018-12-03] MEDS ORDERED: MIDAZOLAM INJ 2 MG/2 ML VIAL (J2250) As Ordered ONE ×2 (09:38→09:39)
[2018-12-03] MEDS ORDERED: LIDOCAINE 1% MDV 20ML VIAL As Ordered ONE ×2 (09:40→10:03)
[2018-12-03] MEDS: KCL 20MEQ IN D5/NS 1000ML 1,000 ML IV SCH (09:40)
[2018-12-03 11:23] LABS: PH BODY FLUID 7.262 UNITS (NOT ESTABLISHED); SOURCE, BODY FLUID pH PLEURAL
--- NOTE | 2018-12-03 11:33 | RO ---
DATE OF PROCEDURE: PREPROCEDURE DIAGNOSIS: Malignant pleural effusion, recurrent. POSTPROCEDURE DIAGNOSIS: Malignant pleural effusion, recurrent. PROCEDURE: Insertion of left PleurX catheter. SURGEON: Dr. Kentrell Torres CAFETERIA TABLE ATTENDANT: ANESTHESIA: DESCRIPTION OF PROCEDURE: Under satisfactory moderate sedation achieved with 4 mg of Versed, the patient was prepped and draped in the usual sterile fashion. The skin, subcutaneous tissue and pleura were infiltrated with 1% lidocaine and the exploring needle found the pleural effusion. A wire was placed over the needle. Tract was selected as was the exit site and Xylocaine was infiltrated all along the tract and at the exit site. Incision was made over the exit and the entrance site adjacent to the wire. A tunnel was then created and a PleurX catheter pulled from the exit site to the entrance site. The tract was then dilated over the wire and a peel away introducer placed. The PleurX catheter was then placed without difficulty and properly positioned. The entrance site incision was closed with running #4-0 Monocryl subcuticular suture augmented with Dermabond. The catheter was secured to the abdominal wall by use of #3-0 silk suture. 250 mL of bloody fluid was drained along with a lot of air as the patient's lung is entrapped and she has residual air. It was sent for the requisite studies of chemistries, cytologies, hematologies and bacteriologies. The patient tolerated the procedure well and a chest x-ray is pending.
[2018-12-03 12:04] LABS: AMYLASE, BODY FLUID 29 U/L (NOT ESTABLISHED); CHOLESTEROL, BODY FLUID 52 MG/DL (NOT ESTABLISHED); LDH, BODY FLUID 1248 U/L (NOT ESTABLISHED); SOURCE, BODY FLUID ALBUMIN PLEURAL; SOURCE, BODY FLUID AMYLASE PLEURAL; SOURCE, BODY FLUID CHOL PLEURAL; SOURCE, BODY FLUID GLUCOSE PLEURAL; SOURCE, BODY FLUID LDH PLEURAL; SOURCE, BODY FLUID TOT PROTEIN PLEURAL; SOURCE, BODY FLUID TRIG PLEURAL; TOTAL PROTEIN, BODY FLUID 3.6 G/DL (NOT ESTABLISHED); TRIGLYCERIDE, BODY FLUID 33 MG/DL (NOT ESTABLISHED)
[2018-12-03 12:32] LABS: APPEARANCE, BODY FLUID HAZY (CLEAR); PLEURAL FL COLOR RED (COLORLESS); SOURCE, BODY FLUID PLEURAL
[2018-12-03] MEDS ORDERED: MIDAZOLAM INJ 2 MG/2 ML VIAL (J2250) IV STA (14:03)
[2018-12-03] MEDS ORDERED: LIDOCAINE 1% MDV 20ML VIAL SC ONE (14:15)
[2018-12-03] MEDS ORDERED: MIDAZOLAM INJ 2 MG/2 ML VIAL (J2250) IV ONE (14:15)
--- NOTE | 2018-12-03 14:32 | REP ---
AP PORTABLE CHEST: 12/03/2018 at 10:24 AM. Comparison: Chest 12/03/2018, CT 12/02/2018, chest 12/02/2018, 11/29/2018. Clinical history: Pleurx catheter. Loculated left hydropneumothorax. Findings: There is a new left base chest tube extending to the left hilar region with emptying of the fluid collection in the loculated pneumothorax. This is similar to its appearance and size on the 11/29/2018 exam, except there is no fluid currently. There are no other interval changes. The lung louis are slightly hypoinflated. No apical pneumothorax. Electronically Signed by Lawrence Cedillo MD 12/03/2018 07:44 P
--- NOTE | 2018-12-03 15:39 | IPNPDOC ---
Date Seen The patient was seen on 12/03/18. Progress Note SUBJECTIVE: Elvie was seen and examined this afternoon while lying upright in bed. She states her shortness of breath upon admission has improved. She underwent an insertion of a Pleurx catheter earlier this morning by thoracic surgery. She tolerated the procedure well, but does state that she feels fairly tired. Her pain is relatively well controlled at this time other than chronically inte rmittent upper back and neck muscular pain. She tolerated soup for lunch. She is drinking without any issues. She denies any abdominal pain, feeling nauseated, or vomiting. She denies confusion, feeling feverish, chills, night sweats, chest pain, chest pressure, palpitations, or paresthesias. OBJECTIVE PHYSICAL EXAMINATION: VITAL SIGNS: Please see below. GENERAL: Elvie is a cooperative and pleasant woman who appears here stated age. She is resting comfortably in bed and does not appear to be in any acute distress. She is alert, interactive, and responds appropriately to questions and commands. HEENT: Normocephalic, atraumatic. Patient is wearing eyeglasses. Pupils are equal, round, and reactive to light and accommodation. Mucous membranes are pink and moist. There is no pharyngeal erythema or exudate. Patient has poor dentition. CARDIOVASCULAR: Patient is tachycardic with normal S1, S2. No murmurs, rubs, or gallops are appreciated. Patient has mild bilateral lower extremity nonpitting edema. 2+ palpable radial and posterior tibial pulses are laterally. RESPIRATORY: There are reduced breath sounds of the middle and lower left lung posteriorly. There is e-to-a egophony and dullness to percussion of left lower lung.. No accessory muscle use on respiration. Auscultation of right lung was relatively clear with no rhonchi or wheezes appreciated. Patient is breathing on room air. ABDOMINAL: Soft and obese, with bilateral lower abdominal ecchymosis. There is a roughly 10 cm x 10 cm gauze bandaging in the left middle to upper abdominal quadrant. There is no tenderness to palpation of all 4 abdominal quadrants. Normoactive bowel sounds are present. There is no rebound, guarding or rigidity. There is no costovertebral angle tenderness. EXTREMITIES: 5 out of 5 muscle strength testing upper extremity, lower extremity bilaterally. NEUROLOGICAL: Patient is awake, alert and oriented 3. She is following questions and commands properly. She is interactive. He should light touch is intact for upper extremities and lower extremities bilaterally. PSYCHOLOGICAL: Appropriate mood, appropriate affect LABORATORY DATA and MICROBIOLOGY: Please see below. IMAGING: Chest x-ray "Impression: 1. A loculated hydropneumothorax posteriorly in the left lower lung zone without apical pneumothorax. This is unchanged in size of the extrapleural air cavity but the air-fluid level is higher than on the prior study of 11/29/2018. 2. Some subsegmental atelectasis in the left lower lung zone and minimally at the right base. No right effusion. No apical pneumothorax. No other change. CT chest "IMPRESSION: 1. Left-sided empyema is slightly increased in size following chest tube butch jovi. 2. Persistent consolidation in the dependent left lower lobe and lingula and persistent diffuse smooth left pleural thickening. 3. Minimal small airways disease in the right lung. 4. Redemonstration of periportal and peripancreatic lymphadenopathy. 5. Redemonstration of indeterminate hepatic lesions, worrisome for metastases. " ASSESSMENT AND PLAN: Elvie is a 58-year-old female with a pertinent past medical history of pancreatic adenocarcinoma, recurrent left-sided pleural effusions necessitating recent hospitalization last week, who was seen by her PCP (Dr. Leon Jha in [facility]) yesterday (12/02) after complaining of left-sided abdominal and flank pain and was advised to present to the emergency department after initial imaging results were reviewed. Patient presents the ED with complaints of shortness of breath and productive cough. Imaging in [facility] showed increasing air fluid level of the left lung with entrapped lung air on chest x-ray, and chest CT showed entrapped lung, with fibrous peel that have become more compressed since her last hospital discharge and chest tube placement. Patient was admitted to the progressive care unit and is being followed by thoracic surgery. A Pleurx catheter was inserted on 12/03 by thoracic surgery. Patient is receiving IV fluids and antibiotics. #Left-sided malignant pleural effusion secondary to metastatic pancreatic adenocarcinoma -Patient is being followed by thoracic surgery who saw patient during admission last week and yesterday upon presentation -Patient underwent insertion of Pleurx catheter this morning to drain effusion -Pleural effusion fluid else's confirmed fluid is malignant -Multiple pleural fluid analysis and culture orders in place and pending (Gram stain, body fluid, anaerobic culture, acid-fast, mycobacterium, and fungal) -Patient receiving hydrocodone, oxycodone, and Toradol for pain. 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 -Patient being followed by thoracic surgery, who inserted a Pleurx catheter this morning. -Receiving hydrocodone, oxycodone, and Toradol for pain. #History of metastatic pancreatic adenocarcinoma -Chest CT on 12/02 showed massive head of pancreas with multiple liver lesions and peritoneal masses. -Receiving Toradol, hydrocodone, and oxycodone for pain. -Elevated alkaline phosphatase, normocytic anemia, leukocytosis, likely all secondary to metastatic cancer. #Kxc-jgbnilj-lzhkihubn diabetes mellitus -Patient currently on insulin sliding scale with additional Levemir 10 units daily and Humalog before meals and after meals. -Patient was npo after midnight in anticipation of Pleurx catheter insertion this morning. Patient had lunch the form of soup after procedure. -Fasting blood sugars elevated in the upper 200s this morning. -Continue to monitor blood sugars and reassess if further medication interventions are warranted. #History of hypertension -Patient normotensive this morning -Continue to monitor vitals and assess if medication/intervention is warranted #Normocytic anemia -Likely secondary to patient's metastatic cancer -Continue to follow and reassess on subsequent labs #Leukocytosis -White cell count down this morning from yesterday to roughly upper limit of normal -This is likely secondary to patient's metastatic cancer -Continue to follow reassess on subsequent labs #Elevated alkaline phosphatase -Likely secondary to patient's metastatic pancreatic adenoma with liver lesions and peritoneal masses -Continue to follow and reassess on subsequent labs #Hyponatremia -Measured 133 this morning after measuring 134 yesterday. -Patient was made nothing by mouth after midnight in preparation for this morning's Rx catheter insertion -Patient was receiving potassium chloride/dextrose IV while nothing by mouth prior to catheter insertion -Patient now tolerating consistent carbohydrate -Continue to follow on subsequent labs and reassess if intervention warranted DVT prophylaxis: Heparin 5000 units every 12 hours subcutaneously Patient also on 40 mg daily Protonix PO Disposition: Patient is being followed by thoracic surgery. Hospitalist team is following for overall medical management as patient remains in PCU. We will continue to work with thoracic surgery and follow patient through inpatient course. VS, I&O, 24H, Fishbone Vital Signs/I&O Vital Signs Date Time Temp Pulse Resp B/P (MAP) Pulse Ox O2 Delivery O2 Flow Rate FiO2 12/03/18 14:47 18 12/03/18 11:47 98.3 94 128/57 (80) 97 12/03/18 10:52 4.0 12/02/18 16:13 Room Air I&O- Last 24 Hours up to 6 AM 12/03/18 05:59 Intake Total 150 ml Output Total 250 ml Balance -100 ml Laboratory Data 24H LABS Laboratory Tests 2 12/02/18 16:35: Immature Granulocyte % (Auto) 1.0, White Blood Count 14.4H, Red Blood Count 4.54, Hemoglobin 12.8, Hematocrit 39.4, Mean Corpuscular Volume 86.8, Mean Corpuscular Hemoglobin 28.2, Mean Corpuscular Hemoglobin Concent 32.5, Red Cell Distribution Width 15.5H, Platelet Count 403, Neutrophils (%) (Auto) 64.7, Lymphocytes (%) (Auto) 22.6L, Monocytes (%) (Auto) 8.0H, Eosinophils (%) (Auto) 3.1H, Basophils (%) (Auto) 0.6, Neutrophils # (Auto) 9.3H, Lymphocytes # (Auto) 3.3, Monocytes # (Auto) 1.2H, Eosinophils # (Auto) 0.4, Basophils # (Auto) 0.1, Nucleated Red Blood Cells % (auto) 0.0, Prothrombin Time 14.4H, Prothromb Time International Ratio 1.15, Activated Partial Thromboplast Time 29.0, Anion Gap 10, Glomerular Filtration Rate > 60.0, Blood Urea Nitrogen 22H, Creatinine 0.92, Sodium Level 134L, Potassium Level 4.2, Chloride Level 100, Carbon Dioxide Level 24, Calcium Level 10.2H, Total Creatine Kinase 36, Creatine Kinase MB < 1.0, Creatine Kinase MB Relative Index 2.78, Troponin I < 0.02, QC-Lqe-P-Type Natriuretic Peptide 105, Thyroid Stimulating Hormone (TSH) 1.610 12/02/18 18:33: Aspartate Amino Transf (AST/SGOT) 22, Alanine Aminotransferase (ALT/SGPT) 32, Alkaline Phosphatase 161H, Total Bilirubin 0.3, Direct Bilirubin 0.1, Total Protein 8.6H, Albumin 3.3, Albumin/Globulin Ratio 0.62L 12/02/18 22:30: Bedside Glucose (Misc Panel) 341H 12/03/18 05:30: Immature Granulocyte % (Auto) 0.9, White Blood Count 10.8H, Red Blood Count 3.91L, Hemoglobin 10.9L, Hematocrit 34.6L, Mean Corpuscular Volume 88.5, Mean Corpuscular Hemoglobin 27.9, Mean Corpuscular Hemoglobin Concent 31.5L, Red Cell Distribution Width 15.6H, Platelet Count 350, Neutrophils (%) (Auto) 54.6, Lymphocytes (%) (Auto) 29.2, Monocytes (%) (Auto) 10.5H, Eosinophils (%) (Auto) 4.4H, Basophils (%) (Auto) 0.4, Neutrophils # (Auto) 5.9, Lymphocytes # (Auto) 3.2, Monocytes # (Auto) 1.1H, Eosinophils # (Auto) 0.5, Basophils # (Auto) 0.0, Nucleated Red Blood Cells % (auto) 0.0, Anion Gap 7L, Glomerular Filtration Rate 55.5, Blood Urea Nitrogen 30H, Creatinine 1.08, Sodium Level 133L, Potassium Level 4.1, Chloride Level 101, Carbon Dioxide Level 25, Calcium Level 9.5 12/03/18 10:23: Body Fluid pH 7.262, Body Fluid pH Source PLEURAL, Body Fluid WBC (Auto) 1005H, Body Fluid RBC (Auto) 135, Body Fluid Mononuclear Cells % Auto 46.3H, Fluid Polymorphonuclear Cell % Auto 53.7H, Body Fluid Glucose Source PLEURAL, Body Fluid Glucose 111, Body Fluid Protein Source PLEURAL, Body Fluid Total Protein 3.6, Body Fluid Albumin Source PLEURAL, Body Fluid Albumin 1.6, Body Fluid LDH Source PLEURAL, Body Fluid Lactate Dehydrogenase 1248, Body Fluid Amylase Source PLEURAL, Body Fluid Amylase 29, Body Fluid Cholesterol 52, Body Fluid Cholesterol Source PLEURAL, Body Fluid Triglyceride Source PLEURAL, Body Fluid Triglycerides 33, Pleural Fluid Source PLEURAL, Pleural Fluid Color RED, Pleural Fluid Appearance HAZY 12/03/18 11:41: Bedside Glucose (Misc Panel) 224H CBC/BMP Laboratory Tests 12/02/18 16:35 Red Blood Count 4.54, Mean Corpuscular Volume 86.8, Mean Corpuscular Hemoglobin 28.2, Mean Corpuscular Hemoglobin Concent 32.5, Red Cell Distribution Width 15.5 H, Neutrophils (%) (Auto) 64.7, Lymphocytes (%) (Auto) 22.6 L, Monocytes (%) (Auto) 8.0 H, Eosinophils (%) (Auto) 3.1 H, Basophils (%) (Auto) 0.6, Neutrophils # (Auto) 9.3 H, Lymphocytes # (Auto) 3.3, Monocytes # (Auto) 1.2 H, Eosinophils # (Auto) 0.4, Basophils # (Auto) 0.1, Calcium Level 10.2 H, Total Creatine Kinase 36 12/03/18 05:30 Red Blood Count 3.91 L, Mean Corpuscular Volume 88.5, Mean Corpuscular Hemoglobin 27.9, Mean Corpuscular Hemoglobin Concent 31.5 L, Red Cell Distribution Width 15.6 H, Neutrophils (%) (Auto) 54.6, Lymphocytes (%) (Auto) 29.2, Monocytes (%) (Auto) 10.5 H, Eosinophils (%) (Auto) 4.4 H, Basophils (%) (Auto) 0.4, Neutrophils # (Auto) 5.9, Lymphocytes # (Auto) 3.2, Monocytes # (Auto) 1.1 H, Eosinophils # (Auto) 0.5, Basophils # (Auto) 0.0, Calcium Level 9.5 Microbiology Microbiology 12/03/18 Acid Fast Stain, Received Pending 12/03/18 Mycobacterial Culture, Received Pending 12/03/18 Fungal Smear, Received Pending 12/03/18 Fungal Culture, Received Pending 12/03/18 Gram Stain, Received Pending 12/03/18 Body Fluid Culture, Received Pending 12/03/18 Anaerobic Culture, Received Pending GME ATTESTATION GME ATTESTATION My faculty preceptor for this patient encounter was physically present during the encounter and was fully available. All aspects of the patient interview, examination, medical decision making process, and medical care plan development were reviewed and approved by the faculty preceptor. The faculty preceptor is aware and concurs with the plan as stated in the body of this note and will attest to such by his/her cosignature. ATTENDING NOTE Patient was seen and examined by me this morning with the residents. Agree with the above assessment and plan TRUDY BARRETO PGY-1 Dec 03, 2018 15:39 ARNULFO SPARKS MD Dec 03, 2018 17:00
[2018-12-04] VITALS: BP 118/70
[2018-12-04] MEDS: KETOROLAC 30 MG/ML VIAL (J1885) IV SCH ×3 (02:00→14:00)
[2018-12-04] MEDS: LEVALBUTEROL 1.25 MG/0.5 ML CONCENTRATE NEB NEB SCH ×3 (02:00→13:41)
[2018-12-04 04:00] VITALS: BP 107/64
[2018-12-04 05:33] LABS: BASO % 0.4 % (0.0-1.0); EOS # 0.4 10^3/uL (0.0-0.5); EOS % 4.2 % (0.0-3.0); HEMATOCRIT 33.2 % (36.0-47.0); HEMOGLOBIN 10.4 g/dl (12.0-15.5); LYMPH # 2.5 10^3/uL (1.5-5.0); LYMPH % 27.6 % (24.0-44.0); MEAN CORPUSCULAR HEMOGLOBIN 27.5 pg (27.0-33.0); MEAN CORPUSCULAR HGB CONC 31.3 g/dl (32.0-36.5); MEAN CORPUSCULAR VOLUME 87.8 fl (80.0-96.0); MONO # 0.7 10^3/uL (0.0-0.8); MONO % 8.1 % (0.0-5.0); NEUTROPHILS # 5.4 10^3/uL (1.5-8.5); NEUTROPHILS % 59.1 % (36.0-66.0); PLATELET COUNT, AUTOMATED 324 10^3/uL (150-450); RED BLOOD COUNT 3.78 10^6/uL (4.00-5.40); WHITE BLOOD COUNT 9.1 10^3/uL (4.0-10.0)
[2018-12-04 05:47] LABS: BLOOD UREA NITROGEN 21 MG/DL (7-18); CARBON DIOXIDE LEVEL 24 MEQ/L (21-32); CHLORIDE LEVEL 105 MEQ/L (98-107); GLOMERULAR FILTRATION RATE > 60.0 (>51); GLUCOSE, FASTING 168 MG/DL (70-100); POTASSIUM SERUM 4.3 MEQ/L (3.5-5.1); SODIUM LEVEL 135 MEQ/L (136-145)
[2018-12-04 07:40] VITALS: BP 107/61
[2018-12-04] MEDS: DOCUSATE SODIUM 100 MG CAP PO SCH (08:37)
[2018-12-04] MEDS: PANTOPRAZOLE 40MG TAB (PROTONIX) PO SCH (08:37)
[2018-12-04] MEDS: MOM 30ML SUSPENSION UDC PO SCH (08:38)
[2018-12-04] MEDS: HEPARIN SOD (PORCINE) 5000 UNITS/ML VIAL SC SCH (08:38)
[2018-12-04] MEDS: LEVEMIR (INSULIN DETEMIR) 1 UNITS/0.01ML SC SCH (08:39)
[2018-12-04] MEDS: TRIAMCINOLONE ACET 0.1% CREAM 80 GM TOP SCH (08:40)
[2018-12-04] MEDS: HumaLOG INSULIN (NovoLOG) PER UNIT SC SCH ×2 (08:41→12:16)
[2018-12-04] MEDS: PERCOCET 5MG/325MG TAB PO PRN ×2 (08:50→12:16)
--- NOTE | 2018-12-04 10:01 | IPNPDOC ---
Subjective Date Seen The patient was seen on 12/04/18. Subjective Chief Complaint/HPI Patient is comfortable offers no new complaints, awaiting for Dr. Torres to release her General: Denies: ROS Unobtainable, Chills, Night Sweats, Fatigue, Malaise, Normal Appetite, Other Symptoms Constitutional: Denies: Chills, Fever, Malaise, Night Sweats, Weakness, Fatigue, Weight Loss, Lethargy, Other Pulmonary: Denies: Dyspnea, Cough, Pleuritic Chest Pain, Other Symptoms Cardiovascular: Denies: Chest Pain, Palpitations, Orthopnea, Paroxysmal Noc. Dy spnea, Edema, Lt Headedness, Other Symptoms Musculoskeletal: Denies: Neck Pain, Back Pain, Shoulder Pain, Arm Pain, Hand Pain, Leg Pain, Foot Pain, Joint Pain, Muscle Pain, Spasms, Other Symptoms Objective Physical Examination General Exam: Positive: Alert, Cooperative Eye Exam: Positive: PERRLA, Conjunctiva & lids normal ENT Exam: Positive: Atraumatic Neck Exam: Positive: Supple Chest Exam: Positive: Clear to auscultation, Normal air movement Heart Exam: Positive: Rate Normal, Normal S1, Normal S2 Abdomen Exam: Positive: Normal bowel sounds, Soft Extremity Exam: Positive: Normal pulses Assessment /Plan Problems (1) Malignant pleural effusion Status: Acute Problem Text: Patient had the pleural Pleurx placed and by Dr. Torres yesterday Patient tolerated procedure very well . She is clinically stable for discharge. We'll await Dr. Torres's clearance before discharging her home Continue all home meds Plan/VTE VTE Prophylaxis Ordered?: Yes VS, I&O, 24H, Fishbone Vital Signs/I&O Vital Signs Date Time Temp Pulse Resp B/P (MAP) Pulse Ox O2 Delivery O2 Flow Rate FiO2 12/04/18 08:50 18 12/04/18 07:40 97.0 87 107/61 (76) 94 12/03/18 10:52 4.0 12/02/18 16:13 Room Air I&O- Last 24 Hours up to 6 AM 12/04/18 06:00 Intake Total 1570 ml Output Total 450 ml Balance 1120 ml Laboratory Data 24H LABS Laboratory Tests 2 12/03/18 10:23: Body Fluid pH 7.262, Body Fluid pH Source PLEURAL, Body Fluid WBC (Auto) 1005H, Body Fluid RBC (Auto) 135, Body Fluid Mononuclear Cells % Auto 46.3H, Fluid Polymorphonuclear Cell % Auto 53.7H, Body Fluid Glucose Source PLEURAL, Body Fluid Glucose 111, Body Fluid Protein Source PLEURAL, Body Fluid Total Protein 3.6, Body Fluid Albumin Source PLEURAL, Body Fluid Albumin 1.6, Body Fluid LDH Source PLEURAL, Body Fluid Lactate Dehydrogenase 1248, Body Fluid Amylase Source PLEURAL, Body Fluid Amylase 29, Body Fluid Cholesterol 52, Body Fluid Cholesterol Source PLEURAL, Body Fluid Triglyceride Source PLEURAL, Body Fluid Triglycerides 33, Pleural Fluid Source PLEURAL, Pleural Fluid Color RED, Pleural Fluid Appearance HAZY 12/03/18 11:41: Bedside Glucose (Misc Panel) 224H 12/03/18 16:59: Bedside Glucose (Misc Panel) 219H 12/03/18 20:13: Bedside Glucose (Misc Panel) 147H 12/04/18 05:08: Immature Granulocyte % (Auto) 0.6, White Blood Count 9.1, Red Blood Count 3.78L, Hemoglobin 10.4L, Hematocrit 33.2L, Mean Corpuscular Volume 87.8, Mean Corpuscular Hemoglobin 27.5, Mean Corpuscular Hemoglobin Concent 31.3L, Red Cell Distribution Width 15.7H, Platelet Count 324, Neutrophils (%) (Auto) 59.1, Lymphocytes (%) (Auto) 27.6, Monocytes (%) (Auto) 8.1H, Eosinophils (%) (Auto) 4.2H, Basophils (%) (Auto) 0.4, Neutrophils # (Auto) 5.4, Lymphocytes # (Auto) 2.5, Monocytes # (Auto) 0.7, Eosinophils # (Auto) 0.4, Basophils # (Auto) 0.0, Nucleated Red Blood Cells % (auto) 0.0, Anion Gap 6L, Glomerular Filtration Rate > 60.0, Blood Urea Nitrogen 21H, Creatinine 0.70, Sodium Level 135L, Potassium Level 4.3, Chloride Level 105, Carbon Dioxide Level 24, Calcium Level 9.0 CBC/BMP Laboratory Tests 12/04/18 05:08 Red Blood Count 3.78 L, Mean Corpuscular Volume 87.8, Mean Corpuscular Hemoglobin 27.5, Mean Corpuscular Hemoglobin Concent 31.3 L, Red Cell Distribution Width 15.7 H, Neutrophils (%) (Auto) 59.1, Lymphocytes (%) (Auto) 27.6, Monocytes (%) (Auto) 8.1 H, Eosinophils (%) (Auto) 4.2 H, Basophils (%) (Auto) 0.4, Neutrophils # (Auto) 5.4, Lymphocytes # (Auto) 2.5, Monocytes # (Auto) 0.7, Eosinophils # (Auto) 0.4, Basophils # (Auto) 0.0, Calcium Level 9.0 Microbiology Microbiology 12/03/18 Acid Fast Stain, Received Pending 12/03/18 Mycobacterial Culture, Received Pending 12/03/18 Fungal Smear, Received Pending 12/03/18 Fungal Culture, Received Pending 12/03/18 Gram Stain - Final, Resulted 12/03/18 Body Fluid Culture, Resulted Pending 12/03/18 Anaerobic Culture, Resulted Pending MARLEN PARK MD Dec 04, 2018 10:01
--- NOTE | 2018-12-04 10:22 | REP ---
CHEST PA AND LATERAL: 12/04/2018. Comparison: 12/03/2018 and 12/02/2018. Clinical history: Left pleural effusion with a chest tube. Findings: Left lower lung zone chest tube again seen coursing posteriorly in the region of the loculated hydropneumothorax at the left base. No apical pneumothorax. Some atelectatic change along the margin of the loculated pneumothorax. I do see a very small amount of pleural fluid on the upright view at the left CP angle on the frontal and lateral images. No new finding or other interval change. Impression: 1. Left base chest tube again seen with small amount of reaccumulation of pleural fluid in the loculated hydropneumothorax on the left side. The loculated pneumothorax is not significantly changed. 2. Left base compressive atelectasis or infiltrates, unchanged from previous study. Electronically Signed by Lawrence Cedillo MD 12/04/2018 01:09 P
[2018-12-04] MEDS ORDERED: ACET1TAB55 PO (12:32)
--- NOTE | 2018-12-04 12:55 | DS.PDOC ---
Discharge Summary General Date of Admission Dec 02, 2018 at 18:45 Date of Discharge 12/04/18 Discharge Summary PROCEDURES PERFORMED DURING STAY: None. ADMITTING DIAGNOSES: 1. Malignant pleural effusion. DISCHARGE DIAGNOSES: 1. Malignant pleural effusion. COMPLICATIONS/CHIEF COMPLAINT: Malignant Pleural Effusion. HISTORY OF PRESENT ILLNESS: This is a 58-year-old female who was initially diagnosed with metastatic pancreatic adenocarcinoma. Recently she had been feeling more short of breath and saw her primary care provider who ordered a chest x-ray. Today her PCP called her and instructed her to come to [facility] for drainage of the pleural effusion. The patient saw Dr. Torres earlier on today, who will place a Pleurx cath in the morning. The learned that her effusion was malignant today; she has not followed up with an oncologist. She admits to losing weight, but denies having fevers, denies having chills, and denies having chest pain.. HOSPITAL COURSE: [ Patient had the pleural Pleurx placed and by Dr. Torres yesterday Patient tolerated procedure very well . She is clinically stable for discharge. Patient cleared by Dr. Torres for discharge and was discharged home on all of her home medications. Follow with Dr. Torres in 1 week DISCHARGE MEDICATIONS: Please see below. ALLERGIES: Please see below. PHYSICAL EXAMINATION ON DISCHARGE: VITAL SIGNS: Please see below. GENERAL: Within normal limits HEENT: PERRLA. Extraocular muscles intact NECK: Supple CARDIOVASCULAR EXAMINATION: S1, S2, regular RESPIRATORY EXAMINATION: Clear to A&P ABDOMINAL EXAMINATION: , Soft, nontender, bowel sounds present EXTREMITIES: No clubbing, cyanosis, edema SKIN: Normal NEUROLOGICAL EXAMINATION: . No focal motor sensory deficit PSYCHIATRIC EXAMINATION: Normal LABORATORY DATA: Please see below. IMAGING: None PROGNOSIS: Poor ACTIVITY: As tolerated. DIET: As tolerated DISCHARGE PLAN: Follow with Dr. Torres in 1 week DISPOSITION: . home DISCHARGE INSTRUCTIONS: 1. Per discharge instructions. ITEMS TO FOLLOWUP ON ON OUTPATIENT: 1. Follow-up with oncology PCP and Dr. Torres in 1 week. DISCHARGE CONDITION: Stable. TIME SPENT ON DISCHARGE: 25 minutes. Vital Signs/I&Os Vital Signs Date Time Temp Pulse Resp B/P (MAP) Pulse Ox O2 Delivery O2 Flow Rate FiO2 12/04/18 12:16 18 12/04/18 07:40 97.0 87 107/61 (76) 94 12/03/18 10:52 4.0 12/02/18 16:13 Room Air I&O- Last 24 Hours up to 6 AM 12/04/18 06:00 Intake Total 1570 ml Output Total 450 ml Balance 1120 ml Laboratory Data Labs 24H Laboratory Tests 2 12/03/18 16:59: Bedside Glucose (Misc Panel) 219H 12/03/18 20:13: Bedside Glucose (Misc Panel) 147H 12/04/18 05:08: Immature Granulocyte % (Auto) 0.6, White Blood Count 9.1, Red Blood Count 3.78L, Hemoglobin 10.4L, Hematocrit 33.2L, Mean Corpuscular Volume 87.8, Mean Corpuscular Hemoglobin 27.5, Mean Corpuscular Hemoglobin Concent 31.3L, Red Cell Distribution Width 15.7H, Platelet Count 324, Neutrophils (%) (Auto) 59.1, Lymphocytes (%) (Auto) 27.6, Monocytes (%) (Auto) 8.1H, Eosinophils (%) (Auto) 4.2H, Basophils (%) (Auto) 0.4, Neutrophils # (Auto) 5.4, Lymphocytes # (Auto) 2.5, Monocytes # (Auto) 0.7, Eosinophils # (Auto) 0.4, Basophils # (Auto) 0.0, Nucleated Red Blood Cells % (auto) 0.0, Anion Gap 6L, Glomerular Filtration Rate > 60.0, Blood Urea Nitrogen 21H, Creatinine 0.70, Sodium Level 135L, Potassium Level 4.3, Chloride Level 105, Carbon Dioxide Level 24, Calcium Level 9.0 12/04/18 12:06: Bedside Glucose (Misc Panel) 177H CBC/BMP Laboratory Tests 12/04/18 05:08 Red Blood Count 3.78 L, Mean Corpuscular Volume 87.8, Mean Corpuscular Hemoglobin 27.5, Mean Corpuscular Hemoglobin Concent 31.3 L, Red Cell Distribution Width 15.7 H, Neutrophils (%) (Auto) 59.1, Lymphocytes (%) (Auto) 27.6, Monocytes (%) (Auto) 8.1 H, Eosinophils (%) (Auto) 4.2 H, Basophils (%) (Auto) 0.4, Neutrophils # (Auto) 5.4, Lymphocytes # (Auto) 2.5, Monocytes # (Auto) 0.7, Eosinophils # (Auto) 0.4, Basophils # (Auto) 0.0, Calcium Level 9.0 FSBS Laboratory Tests Test 12/03/18 16:59 12/03/18 20:13 12/04/18 12:06 Range/Units Bedside Glucose (Misc Panel) 219 147 177 70-105 MG/DL Microbiology Microbiology 12/03/18 Acid Fast Stain, Received Pending 12/03/18 Mycobacterial Culture, Received Pending 12/03/18 Fungal Smear, Received Pending 12/03/18 Fungal Culture, Received Pending 12/03/18 Gram Stain - Final, Resulted 12/03/18 Body Fluid Culture, Resulted Pending 12/03/18 Anaerobic Culture, Resulted Pending Discharge Medications Scheduled Glipizide (Glipizide) 5 Mg Tablet, 5 MG PO DAILY, (Reported) PATIENT STATES THAT SHE DECIDED TODAY THAT SHE DOES NOT WANT TO TAKE THIS ANYMORE. Insulin Glargine,Hum.rec.anlog (Lantus Solostar) 100 Unit/1 Ml Insuln.pen, 10 UNITS SC DAILY, (Reported) Metformin HCl (Metformin HCl ER) 500 Mg Tab.er.24h, 500 MG PO BID, (Reported) PATIENT STATES THAT STARTING TODAY SHE DOES NOT WANT TO TAKE THIS ANYMORE. Multivitamin (Multivitamins) 1 Each Capsule, 1 CAP PO DAILY, (Reported) Triamcinolone Acet (Triamcinolone Acetonide 0.1% Crm) 80 Gm Cream..g., 1 APLCT TOP BID, (Reported) PATIENT IS SUPPOSED TO APPLY TO BACK. STILL READY AT PHARMACY. Scheduled PRN Acetaminophen (Acetaminophen) 325 Mg Tablet, 650 MG PO Q6HP PRN for T > 101.5 or PEDRO Albuterol Sulfate (Albuterol Sulfate) 2.5 Mg/0.5 Ml Vial.neb, 1 VIAL INH Q4H PRN for WHEEZING, (Reported) Aspirin/Caffeine (Back-Body Pain 500-32.5MG Cplt) 1 Each Tablet, 3 TAB PO DAILY PRN for PAIN, (Reported) Cyclobenzaprine HCl (Cyclobenzaprine HCl) 10 Mg Tablet, 10 MG PO TID PRN for MUSCLE SPASMS, (Reported) THIS IS STILL AT KINNEYS PATIENT HAS NOT TAKEN YET Ondansetron HCl (Ondansetron HCl) 4 Mg Tablet, 4 MG PO Q4H PRN for NAUSEA OR VOMITING, (Reported) Allergies Coded Allergies: No Known Allergies (Unverified , 03/21/15) MARLEN PARK MD Dec 04, 2018 12:55
== END 2018-12-04 13:55 | disposition home health service (06) | DRG 281 ==
LOC: M ED 16:12 → M ED INP 18:45 → M PCU 20:32
PROVIDERS: ADMIT Thoracic Surgery (Cardiothoracic Vascular Surgery); ATTEND Internal Medicine
PROC: 0W9B30Z Drainage of Left Pleural Cavity with Drainage Device, Percutaneous Approach (ICD-10-PCS; principal; 2018-12-03)
DX: C25.0 Malignant neoplasm of head of pancreas (principal); J91.0 Malignant pleural effusion; J98.4 Other disorders of lung; E11.9 Type 2 diabetes mellitus without complications; I10 Essential (primary) hypertension; D64.9 Anemia, unspecified; E86.0 Dehydration; K21.9 Gastro-esophageal reflux disease without esophagitis; F12.90 Cannabis use, unspecified, uncomplicated; Z90.49 Acquired absence of other specified parts of digestive tract; Z87.891 Personal history of nicotine dependence; Z79.4 Long term (current) use of insulin; Z79.899 Other long term (current) drug therapy

== ENCOUNTER → 2018-12-08 | Outpatient (CLI) | payer OTHER ==
[~2018-12-08] MED LIST changes: +ACET1TAB55 PO; +ALB2.5NEB INH; +BACK500T PO; +HYDR-3715 PO; +LANTINJ4 SC; +MULTCAP PO; +ONDA-195 PO; +TRIA1CR80 TOP; -ceFAZolin SOD 2 GM in IV 1 EA IV ONE
--- NOTE | 2018-12-08 13:42 | REP ---
PA and lateral chest: Comparison is The left hydropneumothorax is unchanged. The left chest tube is unchanged. Remainder of the left lung is clear and unchanged. Right lung is clear. Cardiac size is normal. The philip, mediastinum, skeletal structures are unremarkable. Impression: There is no interval change. Electronically Signed by Freddie Kelly MD 12/08/2018 01:33 P
== END ==
LOC: M SMT 09:02
PROVIDERS: ATTEND Thoracic Surgery (Cardiothoracic Vascular Surgery)
DX: C25.0 Malignant neoplasm of head of pancreas (principal); J91.0 Malignant pleural effusion; J94.2 Hemothorax

== ENCOUNTER → 2018-12-19 | Outpatient (CLI) | payer OTHER ==
[~2018-12-19] MED LIST changes: +ISOVUE-370 76% 100ML VIAL (Q9967) As Ordered ONE
--- NOTE | 2018-12-19 13:36 | REP ---
INDICATION: Pancreatic carcinoma. Metastatic workup. PROCEDURE: CT axial images of the neck soft tissues were performed following 75 mL of IV Isovue 370. COMPARISON STUDIES: CT chest performed 12/02/2018. FINDINGS: Pleural thickening within the left lung apex is essentially stable. Carotid atherosclerotic disease is noted bilaterally without hemodynamically significant stenosis detected by this technique. There is a tiny nonspecific focus of hypoattenuation within the anterior right thyroid gland which is likely of no clinical significance. There is no cervical lymphadenopathy. The visualized sinuses are clear. CONCLUSION: No evidence of significant cervical lymphadenopathy or neck soft tissue metastatic disease. Electronically Signed by Roby Jha DO 12/19/2018 02:08 P
== END ==
LOC: M RAD 08:30
PROVIDERS: ATTEND Internal Medicine Medical Oncology
DX: C25.9 Malignant neoplasm of pancreas, unspecified (principal); I25.119 Atherosclerotic heart disease of native coronary artery with unspecified angina pectoris
CPT/HCPCS: 70491; Q9967

== ENCOUNTER → 2018-12-21 | Outpatient (CLI) | payer OTHER ==
[~2018-12-21] MED LIST changes: -ISOVUE-370 76% 100ML VIAL (Q9967) As Ordered ONE
--- NOTE | 2018-12-21 14:14 | REP ---
Two-view chest: 12/21/2018. Indication: Pleural effusion. Comparison: 12/08/2018. Findings: The left-sided pl hydropneumothorax has increased in size. The right lung is clear. No right-sided effusion is present. Left-sided chest tube is unchanged in position. Impression: The left sided hydropneumothorax as increased in size compared to earlier this month. There is no shift of the midline structures. Study is otherwise unchanged . Electronically Signed by Roby Jha DO 12/21/2018 02:05 P
== END ==
LOC: M RAD 13:34
PROVIDERS: ATTEND Thoracic Surgery (Cardiothoracic Vascular Surgery)
DX: C25.0 Malignant neoplasm of head of pancreas (principal); J91.0 Malignant pleural effusion; J94.8 Other specified pleural conditions

== ENCOUNTER → 2019-01-03 | Outpatient (CLI) | payer OTHER ==
[~2019-01-03] MED LIST changes: +COLA100C5 PO; +MORP-69 PO; +TIZA2TA
== END ==
LOC: M PLARAD 13:57
PROVIDERS: ATTEND Thoracic Surgery (Cardiothoracic Vascular Surgery)
DX: J90 Pleural effusion, not elsewhere classified (principal)

== ENCOUNTER → 2019-01-03 | Outpatient (POV) | payer OTHER ==
[~2019-01-03] VITALS: Ht 160 cm; Wt 79.1 kg
[~2019-01-03] MED LIST changes: +ALBU83IN INH; +ATIV1TAB10 PO; +BASA100I SC; +DOCU100C16 PO; +LIDO4CRE4 EXT; +Morphine Sulfate Oral Conc. SL; +TIZA4TAB4 PO; +ZOFR4TAB16 PO
[2019-01-03 12:50] VITALS: BP 108/60
--- NOTE | 2019-02-09 10:52 | IRPN ---
[facility] IR Progress Note IR Progress Note DATE: Jan 03, 2019 I don't recall seeing this patient in follow up. Patient or infusion to call for any issues or follow up as necessary. Thank you Allergies Coded Allergies: No Known Allergies (Unverified , 03/21/15) EDWARD CRUZ MD Feb 09, 2019 10:52
== END ==
LOC: M IRPOV 12:46
PROVIDERS: ATTEND Radiology Diagnostic Radiology
DX: Z45.2 Encounter for adjustment and management of vascular access device (principal)

== ENCOUNTER 2019-01-09 11:53 | Emergency (ER) | payer OTHER ==
[~2019-01-09] VITALS: Ht 160 cm; Wt 79.1 kg
[~2019-01-09 11:53] MED LIST changes: -ALBU83IN INH; -ATIV1TAB10 PO; -BASA100I SC; -COLA100C5 PO; -DOCU100C16 PO; -LIDO4CRE4 EXT; -MORP-69 PO; -Morphine Sulfate Oral Conc. SL; -TIZA2TA; -TIZA4TAB4 PO; -ZOFR4TAB16 PO
[2019-01-09] MEDS ORDERED: TIZA2TA (12:28)
[2019-01-09] MEDS ORDERED: MORP-69 PO (12:28)
--- NOTE | 2019-01-09 13:13 | REP ---
Abdominal series: Three views. History: Constipation. Cough. Comparison chest radiograph December 21, 2018. Findings: There is a loculated hydropneumothorax in the left lung base. No free subdiaphragmatic air is seen. The air-fluid level at the left lung base is unchanged from December 21, 2018. There is a PleurX catheter in the pleural space at the left base. There is slight blunting of the right lateral pleural angle. Supine and erect views of the abdomen show a normal bowel gas pattern. There is an irregular calcification overlying the right kidney, this measures up to 17 mm in greatest diameter. There is a right-sided femoral venous catheter noted with its tip in the region of the inferior vena cava at the L1-2 disc level. No other finding. Impression: The patient has a left-sided PleurX catheter and right femoral venous catheter in place. There is an irregular 17 mm calculus projecting on the right kidney. Normal bowel gas pattern. Small effusion in the right chest. Air-fluid level again seen in the left chest. Electronically Signed by Norbert Camejo MD 01/09/2019 01:16 P
[2019-01-09] MEDS: GASTROGRAFIN SOLUTION 30ML PO SCH (14:08)
[2019-01-09 14:33] LABS: BASO # 0.1 10^3/uL (0.0-0.2); BASO % 0.3 % (0.0-1.0); EOS # 0.4 10^3/uL (0.0-0.5); EOS % 2.5 % (0.0-3.0); HEMATOCRIT 39.3 % (36.0-47.0); HEMOGLOBIN 12.4 g/dl (12.0-15.5); LYMPH # 2.9 10^3/uL (1.5-5.0); LYMPH % 19.3 % (24.0-44.0); MEAN CORPUSCULAR HGB CONC 31.6 g/dl (32.0-36.5); MEAN CORPUSCULAR VOLUME 85.6 fl (80.0-96.0); MONO % 6.6 % (0.0-5.0); NEUTROPHILS # 10.5 10^3/uL (1.5-8.5); PLATELET COUNT, AUTOMATED 282 10^3/uL (150-450); RED BLOOD COUNT 4.59 10^6/uL (4.00-5.40)
[2019-01-09 14:59] LABS: ALBUMIN 2.6 GM/DL (3.2-5.2); ALT/SGPT 25 U/L (12-78); BILIRUBIN,DIRECT 0.4 MG/DL (0.0-0.2); BILIRUBIN,TOTAL 0.8 MG/DL (0.2-1.0); BLOOD UREA NITROGEN 13 MG/DL (7-18); CALCIUM LEVEL 11.3 MG/DL (8.5-10.1); CARBON DIOXIDE LEVEL 25 MEQ/L (21-32); CHLORIDE LEVEL 96 MEQ/L (98-107); CK-MB VALUE MASS < 1.0 NG/ML (<3.6); CPK CREATINE PHOSPHOKINASE 66 U/L (26-192); CREATININE FOR GFR 0.53 MG/DL (0.55-1.30); GLOMERULAR FILTRATION RATE > 60.0 (>51); GLUCOSE, FASTING 137 MG/DL (70-100); LIPASE 65 U/L (73-393); MB/CK RELATIVE INDEX 1.52 (< OR =4); POTASSIUM SERUM 4.2 MEQ/L (3.5-5.1); SODIUM LEVEL 137 MEQ/L (136-145); TOTAL PROTEIN 7.3 GM/DL (6.4-8.2); TROPONIN I < 0.02 NG/ML (< 0.10)
[2019-01-09] MEDS ORDERED: ISOVUE-370 76% 100ML VIAL (Q9967) As Ordered ONE (15:00)
--- NOTE | 2019-01-09 16:04 | REP ---
CT of the abdomen and pelvis with IV contrast and bowel contrast for epigastric pain and vomiting in a patient with known pancreatic cancer. Comparison is 11/23/2018. There is a hydropneumothorax in the left hemithorax with a chest tube. This is unchanged. There are multiple hepatic metastases. Some of these have increased in size. There is a small volume of ascites surrounding the liver as an interval change. There is cholelithiasis, unchanged. There is no biliary duct dilatation. There is a mass in the pancreatic uncinate process today measuring up to 3.5 cm. This measured 3.0 cm previously. The mass impinges the transverse portion of the duodenum. The stomach is mildly distended. No evidence of duodenal obstruction at this time. There is no dilatation of the pancreatic duct. There is no peripancreatic inflammation to suggest pancreatitis. There is no peripancreatic fluid collection. The spleen is unremarkable. There are enlarged mesenteric nodes, as previously, including in the leonardo hepatis. The abdominal aorta is unremarkable except for calcified atheroma. There are normal-sized periaortic nodes. No periaortic lymph node enlargement. There is no bowel distension or obstruction. Pelvis: There is ascites throughout the pelvis as an interval change. The uterus is atrophic as previously. The bladder is collapsed. There is no pelvic adenopathy. There is sigmoid colon diverticulosis without diverticulitis. There are foci of increased density in the L2-L4 vertebral bodies compatible with blastic skeletal metastases, not present previously. Impression: The known pancreatic uncinate process mass has increased in size. Some of the known hepatic metastases have increased in size. There are multiple mesenteric nodes as previously. There is ascites, not present previously, surrounding the liver and in the pelvis. There are blastic skeletal metastases in the L2 and L4 vertebral bodies as an interval change. There is no bowel distension or obstruction. The pancreatic mass impinges the transverse duodenum. There is mild gastric distension. There is no evidence of duodenal obstruction at this time. There is sigmoid diverticulosis without diverticulitis. There is a hydropneumothorax on the left with a chest tube. This is unchanged. Electronically Signed by Freddie Kelly MD 01/09/2019 03:56 P
[2019-01-09] MEDS ORDERED: COLA100C5 PO (16:17)
[2019-01-09 16:23] VITALS: BP 124/77
--- NOTE | 2019-01-09 16:38 | ECGEPIP ---
[facility] - ED Test Date: 2019-01-09 Pat Name: AMINTA PEARSON Department: Room: - Gender: Female Certified Procedural Coder: POC : 1960 Requested By: JUAREZ Ferreira Order Number: [id number] Reading MD: Kinsey Larry Measurements Intervals [place] Rate: 125 P: NM: 0 QRS: 29 QRSD: 83 T: 53 QT: 307 QTc: 444 Interpretive Statements SINUS TACHYCARDIA PACS MINIMAL VOLTAGE CRITERIA FOR LVH, CONSIDER NORMAL VARIANT NONSPECIFIC ST & T-WAVE ABNORMALITY ABNORMAL RHYTHM ECG INCREASED ECTOPY/RATE 12/02/18 Electronically Signed on 01-09-2019 16:38:32 EST by Kinsey Larry
--- NOTE | 2019-01-10 08:53 | ED PDOC ---
Post-Departure Follow-Up radiology reports faxed to PCP, Kinsey Horowitz MD Jan 10, 2019 08:53
== END 2019-01-09 16:49 | disposition home or self-care (01) ==
LOC: M ED 11:53
DX: K59.00 Constipation, unspecified (principal); C25.9 Malignant neoplasm of pancreas, unspecified; R10.13 Epigastric pain; I49.3 Ventricular premature depolarization; E11.9 Type 2 diabetes mellitus without complications; I10 Essential (primary) hypertension; Z87.19 Personal history of other diseases of the digestive system; J91.0 Malignant pleural effusion; F17.200 Nicotine dependence, unspecified, uncomplicated; Z79.899 Other long term (current) drug therapy; Z79.4 Long term (current) use of insulin; Z79.891 Long term (current) use of opiate analgesic
CPT/HCPCS: 74021; 74177; 80048; 80076; 82550; 82553; 83690; 85025; 93005; 93041; 99285; Q9963; Q9967

== ENCOUNTER → 2019-01-12 10:00 | Outpatient (RCR) | payer OTHER ==
[2018-12-14 13:18] VITALS: BP 109/75
[2018-12-14 14:32] LABS: HEMOGLOBIN 13.2 g/dl (12.0-15.5); LYMPH % 24.7 % (24.0-44.0); MEAN CORPUSCULAR HEMOGLOBIN 28.8 pg (27.0-33.0); MEAN CORPUSCULAR VOLUME 87.2 fl (80.0-96.0); NEUTROPHILS # 8.4 10^3/uL (1.8-7.7); NEUTROPHILS % 67.4 % (36.0-66.0); RED BLOOD COUNT 4.59 10^6/uL (4.00-5.40); WHITE BLOOD COUNT 12.5 10^3/uL (4.0-10.0)
[2018-12-14 15:14] LABS: INR 1.12; PROTHROMBIN TIME 14.1 SECONDS (11.8-14.0)
[2018-12-14 15:15] LABS: PARTIAL THROMBOPLASTIN TIME 28.5 SECONDS (25.0-38.4)
[2018-12-14 15:44] LABS: ALBUMIN 3.8 GM/DL (3.5-5.2); BLOOD UREA NITROGEN 11 MG/DL (6-20); CARBON DIOXIDE LEVEL 26 MEQ/L (23-31); CHLORIDE LEVEL 97 MMOL/L (98-107); CREATININE FOR GFR 0.57 MG/DL (0.60-1.10); GLOMERULAR FILTRATION RATE > 60.0 (>51); GLUCOSE, FASTING 230 MG/DL (70-105); SODIUM LEVEL 135 MMOL/L (135-145); TOTAL PROTEIN 7.5 GM/DL (6.4-8.3)
--- NOTE | 2018-12-15 11:50 | MEDONC ---
MEDICAL ONCOLOGY INITIAL VISIT: DATE OF SERVICE: 12/14/2018 DIAGNOSIS: New diagnosis of stage IV, T2N1M1 adenocarcinoma of pancreas involving head of pancreas mass with malignant pleural effusion, 3 cm pancreatic mass, peripancreatic, mesenteric metastatic foci versus adenopathy and multiple liver metastases, CA19-9 176,994. REFERRING PHYSICIAN: Kentrell Torres MD HISTORY OF PRESENT ILLNESS: Elvie Harrington is a 58-year-old woman with an approximate 30 pack-year smoking history and family history notable for mother with ovarian cancer admitted to [facility] mid November with dyspnea. CT showed a large left pleural effusion with enhancing rind. There was initial concern for empyema. She ultimately underwent fluid drainage positive for malignant cells and PleurX placement due to recurrent effusion. Further imaging revealed a 3 cm pancreatic head/uncinate process mass, numerous liver metastases, multiple mesenteric nodules, no skeletal lesions seen. CA19-9 176,994. Today she is here accompanied by two daughters, Ghada Harrington and Amrit Garay; Ghada her healthcare proxy. She has some abdominal distension but says this is not new but points to her abdomen saying where her cancer is. She reports her breathing is better since the tube was placed and is the draining a few 100 mL every other day. A PET has been ordered and is scheduled not yet done. PAST MEDICAL HISTORY: Type 1 diabetes. Hypertension. GERD. New diagnosis of metastatic pancreatic cancer. PAST SURGICAL HISTORY: Small bowel obstruction. Appendectomy. . ALLERGIES: NO KNOWN DRUG ALLERGIES. MEDICATIONS: - albuterol 1 inhalation q.4 h as needed - aspirin/caffeine 3 tablets daily as needed - hydrocodone/acetaminophen 5/325 q.12 h as needed - insulin glargine 10 units daily - ondansetron 4 mg q.4 h p.r.n. - oxycodone/acetaminophen 5/325 q.i.d. p.r.n. - triamcinolone topical FAMILY HISTORY: Mother had ovarian cancer at a younger age, lived well beyond it. Brother had bladder cancer. SOCIAL HISTORY: The patient smoked for 30 years. Continues to smoke lightly. Denies alcohol. Formerly worked in childcare. Currently lives by herself but gets a lot of help from her daughter. REVIEW OF SYSTEMS: 12 system written review completed by the patient positive for a 50-pound weight loss, nausea, poor eyesight, exertional dyspnea due to left lung fluid, gas and nausea at night, no vomiting, left neck ache, forgetfulness, bruising takes long to go way. PHYSICAL EXAMINATION: Patient is a somewhat tall older woman, seated on the exam table, unable to fully recline fearful of difficulty breathing and discomfort. Respiratory: Clear lungs throughout the right upper and mostly right lower lung louis. Decreased breath sounds at the left base but good air movement left upper lung field. Cardiac: S1, S2, mild tachycardia, regular, no gallops. Abdomen: Soft, nontender, no shifting dullness. No palpable epigastric mass. PleurX bandage to the left upper abdomen clean, dry, intact. Extremities: Trace pedal edema bilaterally symmetric. Lymph nodes: No palpable submandibular, cervical, supraclavicular or axillary lymph nodes. Neck is nontender to palpation, nor are shoulders, but the patient complains of severe pain in the left upper neck. Musculoskeletal: No vertebral tenderness to light percussion. LABS: WBC 12.5, hemoglobin 13, hematocrit 40, platelets 418. MCV 87. Sodium 135, potassium 4.2, BUN 11, creatinine 0.6, alk phos 194. IMPRESSION: Metastatic pancreatic adenocarcinoma with a 3 cm head of pancreas mass, no obstructive symptoms, malignant pleural effusion status post PleurX catheter, mesenteric and liver metastases, very high baseline CA19-9. ECOG performance status 1-2. PLAN: 1. I spoke with Elvie today about treatment of metastatic pancreatic cancer. First I explained her cancer is not curable and that treatment is aimed at limiting symptoms, controlling disease and possibly offering extension of life. I explained there were three approaches: Very mild chemotherapy with single-agent gemcitabine, intermediate with gemcitabine and lipid stomal paclitaxel and more aggressive with FOLFOXIRI. She immediately agreed the aggressive treatment was not appropriate for her but that she would like to try the intermediate type and I think it is reasonable for her to start with gem/Abraxane and scale back to gemcitabine only if she is not able to tolerate this. I reviewed risks, benefits, side effects and schedule of treatment including but not limited to peripheral neuropathy, myelosuppression, the risk of need for transfusion, risk of bleeding, infection, fatigue, alopecia, nausea, vomiting. I also explained an option is not to do for treatment but to have palliative and hospice care alone for which life expectancy would be approximately 6 months at most. Elvie and her family said they would like elect for treatment but we all agreed that if she is unable to tolerate it we would quickly scale back and/or discontinue it and refer to hospice care. 2. MediPort placement. Elvie acknowledges poor venous access. 3. CT neck with contrast. Elvie very reluctant to do an MRI. We talked about what could be causing her neck pain, possibly a spinal type lesion versus musculoskeletal or soft tissue. The first step we will get a CT of the neck. If unrevealing and her neck pain persists, she may be able to do an MRI with some mild anxiolytic and once her ability to lie down is clear. 4. Return to clinic to begin gemcitabine/Abraxane. 5. Written informed consent for chemotherapy was obtained 6. Germline BRCA testing is appropriate and will be addressed on next visit Electronically Signed by Taisha Recinos MD 12/15/2018 12:44 P DD: Taisha Recinos MD 12/14/2018 05:24 P DT: [email or web address] 12/15/2018 11:11 A CC: MD Leon Acevedo MD
[~2019-01-12] VITALS: Ht 157.5 cm; Wt 77.2 kg
[~2019-01-12 10:00] MED LIST changes: +ALBU83IN INH; +ATIV1TAB10 PO; +ATROPINE SULF 0.4 MG/ML 1ML VIAL (J0461) IV PRN; +BASA100I SC; +COLA100C5 PO; +DOCU100C16 PO; +FOSAPREPITANT PERIPHERAL LINE 30 MIN INFUSION (PREMIX) IV ONE; +FOSAPREPITANT PERIPHERAL LINE 30 MIN INFUSION IV ONE; +GEMCITABINE IV ONE; +LIDO4CRE4 EXT; +MORP-69 PO; +Morphine Sulfate Oral Conc. SL; +NS IV ONE; +PACLITAXEL PROTEIN BOUND IV ONE; +PALONOSETRON 250 MCG IV IV ONE; +SODIUM CHLORIDE 0.9% INJ 10 ML SYR IV PRN; +TIZA2TA; +TIZA4TAB4 PO; +ZOFR4TAB16 PO; +[UNRECOGNIZED DRUG - OTHER] IV ONE; +dexameTHASONE 10 MG IV IV ONE
[2019-01-12 10:31] VITALS: BP 102/62
[2019-01-12 11:37] LABS: BASO # 0.1 10^3/uL (0.0-0.2); BASO % 0.5 % (0.0-1.0); EOS # 0.5 10^3/uL (0.0-0.5); EOS % 3.4 % (0.0-3.0); HEMATOCRIT 40.8 % (36.0-47.0); HEMOGLOBIN 12.5 g/dl (12.0-15.5); LYMPH # 2.5 10^3/uL (1.5-5.0); LYMPH % 18.5 % (24.0-44.0); MEAN CORPUSCULAR HEMOGLOBIN 26.8 pg (27.0-33.0); MEAN CORPUSCULAR HGB CONC 30.6 g/dl (32.0-36.5); MEAN CORPUSCULAR VOLUME 87.6 fl (80.0-96.0); MONO # 1.1 10^3/uL (0.0-0.8); MONO % 8.1 % (0.0-5.0); NEUTROPHILS # 9.3 10^3/uL (1.5-8.5); NEUTROPHILS % 68.3 % (36.0-66.0); PLATELET COUNT, AUTOMATED 209 10^3/uL (150-450); RED BLOOD COUNT 4.66 10^6/uL (4.00-5.40); WHITE BLOOD COUNT 13.7 10^3/uL (4.0-10.0)
[2019-01-12 12:00] LABS: ALBUMIN 2.6 GM/DL (3.2-5.2); ALT/SGPT 28 U/L (12-78); BILIRUBIN,TOTAL 0.6 MG/DL (0.2-1.0); BLOOD UREA NITROGEN 16 MG/DL (7-18); CALCIUM LEVEL 11.8 MG/DL (8.5-10.1); CARBON DIOXIDE LEVEL 30 MEQ/L (21-32); CHLORIDE LEVEL 98 MEQ/L (98-107); CREATININE FOR GFR 0.55 MG/DL (0.55-1.30); GLOMERULAR FILTRATION RATE > 60.0 (>51); GLUCOSE, FASTING 158 MG/DL (70-100); POTASSIUM SERUM 3.9 MEQ/L (3.5-5.1); SODIUM LEVEL 135 MEQ/L (136-145); TOTAL PROTEIN 7.6 GM/DL (6.4-8.2)
--- NOTE | 2019-01-12 14:13 | ONC.PHACK ---
CHEMO ADMIN CHECKLIST Order Contains Pt ID: Name, Order on Chemo Order Form?: Yes Order Form Includes ALL: Correct Tx Day, Correct Date, Correct Cycle Number Pt ID on Order form Matches: Pt ID on PHA Label Med on Chemo OrderForm Matches: PHA Label, Med Used for Preparation [facility] Jan 12, 2019 14:13
--- NOTE | 2019-01-23 09:27 | MEDONC ---
MEDICAL ONCOLOGY FOLLOWUP/TREATMENT VISIT: DATE OF SERVICE: 01/12/2019 DIAGNOSIS: Stage IV, T2 N1, M1 adenocarcinoma of pancreas involving head of pancreas mass with malignant pleural effusion status post PleurX catheter, 3 cm pancreatic mass peripancreatic mesenteric lymph node involvement versus mesenteric adenopathy and multiple liver metastases diagnosed November 2018 with baseline CA19-9 176,000. CURRENT THERAPY: The patient is here today for followup but we decided will start her urgently on palliative single agent gemcitabine. The original plan was for her to begin gemcitabine/Abraxane but her performance status has declined. INTERVAL HISTORY: Elvie was admitted to the emergency department on January 09 complaining of pain involving right upper leg and buttock rash. Imaging in the emergency room included abdomen x-ray, abdomen pelvis CT, which revealed ascites throughout the pelvis which was new and in addition, L2 - L4 vertebral body increased density consistent with blastic skeletal metastases new versus 11/23/2018. She was given pain medications and discharged home. Her daughter Emiliana called me. There has been unfortunately a delay in getting her PET and having her return to clinic for which I apologized. Today Elvie is accompanied by family members. I explained the disease progression involving the spine. Her pain is under better control. She is now no longer up and walking about a whole lot and spending more time in a chair and I recommended palliative treatment with single-agent gemcitabine only. This would be gentler could be started right away, even today without delay. The patient and her family had great concerns about the time it takes for her PleurX to be drained. This is being done every other day by her daughter and because of pain during the drainage, takes a few hours to perform slowly. Elvie says she is not eating much generally feels kind of blah but very much wants to proceed with palliative treatment. Today, I explained that when cancer spreads to the bone and liver, it is not curable. The goal of treatment is to improve pain and symptoms, restore as close to normal as possible quality of life. Life expectancy of pancreatic cancer without treatment would be 6 months or less with treatment can extend to 12 months or more. These facts were reviewed today with the patient and her family. PHYSICAL EXAMINATION: The patient is seated in a wheelchair. Weight 77 kg down 2 kg, temperature 97.5, blood pressure 102/62, heart rate 118, respiratory 20, O2 sat 92%. The patient is a somewhat ill appearing older woman in no obvious distress. HEENT: No scleral icterus. Oropharynx clear with moist pink mucous membranes. Edentulous. No buccal palatal or tongue lesions. Respiratory: Clear lungs to auscultation. Slight scant coarse breath sounds in the left base. No wheezes. Cardiac: S1,S2 mild tachycardia. No gallop or murmur. Abdomen is soft, mild distension, nontender. No audible shifting dullness. Extremities: No edema. LABORATORY DATA: WBC 13.7, hemoglobin 12.5, hematocrit 41, platelets 209. Sodium 135. Remainder of electrolytes normal. Normal renal function, glucose 158, calcium 11. Liver functions normal. Albumin 2.6, alkaline phosphatase 600 (CA19-9 later came, resulted at 848, 277). IMPRESSION: 1. Progressive mid metastatic pancreatic adenocarcinoma in a 58-year-old woman with liver, bone and lung pleural effusion involvement. 2. ECOG performance status now 2 at best 3. The patient desperately wants to start treatment but understands it is palliative in nature only. 4. Emerging hypercalcemia. PLAN: 1. IV hydration today. 2. Gemcitabine weekly days 1,8,15 on a 28-day schedule. 3. Written informed consent for chemotherapy has previous that obtained. 4. Return to clinic 1 week for next chemotherapy with labs. 5. Extensive discussion today with the patient and her family about goals of care reasons to stop, and the option of hospice and palliative care. Time Statement: 30 minutes [id number] with the patient more than 50% involving counseling regarding metastatic pancreatic cancer, goals of palliative treatment versus nonactive treatment and disease progression. Electronically Signed by Taisha Recinos MD 01/31/2019 07:16 P DD: Taisha Recinos MD 01/20/2019 10:53 A DT: [email or web address] 01/23/2019 09:15 A CC: Leon Jha MD
== END | disposition home or self-care (01) ==
LOC: M ONCM 12-14 12:25
PROVIDERS: ATTEND Internal Medicine Medical Oncology
DX: C25.0 Malignant neoplasm of head of pancreas (principal); C78.7 Secondary malignant neoplasm of liver and intrahepatic bile duct; J91.0 Malignant pleural effusion; E10.9 Type 1 diabetes mellitus without complications; K21.9 Gastro-esophageal reflux disease without esophagitis; I10 Essential (primary) hypertension; F17.210 Nicotine dependence, cigarettes, uncomplicated; Z79.4 Long term (current) use of insulin; Z79.82 Long term (current) use of aspirin
CPT/HCPCS: 36415; 36592; 80053; 85027; 85610; 85730; 86301; 96367; 96375; 96413; G0463; J1100; J1453; J2469; J9201

== ENCOUNTER 2019-01-15 19:03 | Emergency (ER) | payer OTHER ==
[~2019-01-15] VITALS: Ht 160 cm; Wt 74.1 kg
[~2019-01-15 19:03] MED LIST changes: -ALBU83IN INH; -ATIV1TAB10 PO; -ATROPINE SULF 0.4 MG/ML 1ML VIAL (J0461) IV PRN; -BASA100I SC; -DOCU100C16 PO; -FOSAPREPITANT PERIPHERAL LINE 30 MIN INFUSION (PREMIX) IV ONE; -FOSAPREPITANT PERIPHERAL LINE 30 MIN INFUSION IV ONE; -GEMCITABINE IV ONE; -LIDO4CRE4 EXT; -Morphine Sulfate Oral Conc. SL; -NS IV ONE; -PACLITAXEL PROTEIN BOUND IV ONE; -PALONOSETRON 250 MCG IV IV ONE; -SODIUM CHLORIDE 0.9% INJ 10 ML SYR IV PRN; -TIZA4TAB4 PO; -ZOFR4TAB16 PO; -[UNRECOGNIZED DRUG - OTHER] IV ONE; -dexameTHASONE 10 MG IV IV ONE
[2019-01-15] MEDS ORDERED: OXYC1TAB23 PO (19:28)
[2019-01-15] MEDS ORDERED: NS 1,000 ML IV ONE (19:30)
[2019-01-15 19:59] LABS: HEMATOCRIT 36.5 % (36.0-47.0); HEMOGLOBIN 11.3 g/dl (12.0-15.5); MEAN CORPUSCULAR HEMOGLOBIN 27.3 pg (27.0-33.0); MEAN CORPUSCULAR VOLUME 88.2 fl (80.0-96.0); PLATELET COUNT, AUTOMATED 100 10^3/uL (150-450); RED BLOOD COUNT 4.14 10^6/uL (4.00-5.40); WHITE BLOOD COUNT 18.8 10^3/uL (4.0-10.0)
[2019-01-15 20:18] LABS: EOSINOPHILS 6 % (0-3); LYMPHOCYTES 5 % (16-44); NEUTROPHILS 88 % (28-66)
[2019-01-15 20:19] LABS: ANISOCYTOSIS 1+; PLATELET ESTIMATE NORMAL (NORMAL)
[2019-01-15 20:20] LABS: HYPOCHROMASIA 1+; TOXIC VACUOLATION 1+
[2019-01-15 20:22] LABS: ALBUMIN 2.5 GM/DL (3.2-5.2); ALT/SGPT 28 U/L (12-78); BILIRUBIN,DIRECT 0.6 MG/DL (0.0-0.2); BILIRUBIN,TOTAL 1.1 MG/DL (0.2-1.0); BLOOD UREA NITROGEN 36 MG/DL (7-18); CALCIUM LEVEL 13.1 MG/DL (8.5-10.1); CARBON DIOXIDE LEVEL 31 MEQ/L (21-32); CHLORIDE LEVEL 99 MEQ/L (98-107); CREATININE FOR GFR 0.72 MG/DL (0.55-1.30); GLOMERULAR FILTRATION RATE > 60.0 (>51); GLUCOSE, FASTING 234 MG/DL (70-100); LIPASE 81 U/L (73-393); POTASSIUM SERUM 4.2 MEQ/L (3.5-5.1); SODIUM LEVEL 139 MEQ/L (136-145); TOTAL PROTEIN 7.3 GM/DL (6.4-8.2)
[2019-01-15 21:15] VITALS: BP 139/74
[2019-01-16] MEDS ORDERED: OXYC1TAB23 PO (11:25)
[2019-01-16] MEDS ORDERED: TIZA4TAB4 PO (21:39)
[2019-01-16] MEDS ORDERED: ZOFR4TAB16 PO (21:39)
[2019-01-16] MEDS ORDERED: ALBU83IN INH (21:39)
[2019-01-16] MEDS ORDERED: DOCU100C16 PO (21:39)
[2019-01-16] MEDS ORDERED: LIDO4CRE4 EXT (21:39)
[2019-01-16] MEDS ORDERED: BASA100I SC (21:39)
[2019-01-20] MEDS ORDERED: Morphine Sulfate Oral Conc. SL (11:18)
[2019-01-20] MEDS ORDERED: ATIV1TAB10 PO (11:18)
== END 2019-01-15 21:52 | disposition home or self-care (01) ==
LOC: EDBD 19:03 → M ED 19:03
DX: E86.0 Dehydration (principal); R06.02 Shortness of breath; E11.9 Type 2 diabetes mellitus without complications; J44.9 Chronic obstructive pulmonary disease, unspecified; C25.9 Malignant neoplasm of pancreas, unspecified; C78.7 Secondary malignant neoplasm of liver and intrahepatic bile duct; J91.0 Malignant pleural effusion; F17.200 Nicotine dependence, unspecified, uncomplicated; Z79.899 Other long term (current) drug therapy; Z79.891 Long term (current) use of opiate analgesic